=== PATIENT | female | born 1940 | race Caucasian/White ===

== ENCOUNTER 2016-06-05 11:27 | Outpatient (CLI) | payer MEDICARE | END 2016-06-05 11:28 | disposition home or self-care (01) | DX: I25.10 Atherosclerotic heart disease of native coronary artery without angina pectoris (principal); I51.7 Cardiomegaly; I10 Essential (primary) hypertension; Z95.1 Presence of aortocoronary bypass graft ==

== ENCOUNTER 2016-07-12 14:17 | Outpatient (CLI) | payer MEDICARE | END 2016-07-12 14:18 | disposition home or self-care (01) | DX: I25.10 Atherosclerotic heart disease of native coronary artery without angina pectoris (principal) ==

== ENCOUNTER 2016-07-13 14:43 | Outpatient (CLI) | payer MEDICARE | END 2016-07-13 14:44 | disposition home or self-care (01) | DX: I10 Essential (primary) hypertension (principal); E74.39 Other disorders of intestinal carbohydrate absorption; D75.1 Secondary polycythemia ==

== ENCOUNTER 2016-11-16 12:16 | Outpatient (CLI) | payer MEDICARE ==
--- NOTE | 2016-11-16 15:54 | XRAY Report ---
RIGHT HIP AND PELVIS: 11/16/2016 CLINICAL INDICATION: Right hip pain. COMPARISON: 07/26/2010 FINDINGS: Frontal view of the hips and pelvis and frogleg lateral view of the right hip again demons trate severe right hip osteoarthritis. There is no evidence of interval fracture. Surgical clips ar e noted in the right groin soft tissues. IMPRESSION: SEVERE RIGHT HIP OSTEOARTHRITIS. JOB #: [id number] EXT JOB #:[id number]
--- NOTE | 2016-11-16 15:59 | XRAY Report ---
THREE VIEW RIGHT KNEE: 11/16/2016 CLINICAL INDICATION: Pain. FINDINGS: AP, lateral, and sunrise views of the right knee demonstrate mild osteoarthritis. There is no evidence of acute fracture or dislocation. No effusion is present. IMPRESSION: MILD OSTEOARTHRITIS. JOB #: [id number] EXT JOB #:[id number]
== END 2016-11-16 12:17 | disposition home or self-care (01) ==
LOC: DI.S 12:16
PROVIDERS: ATTEND Nurse Practitioner Family
DX: M16.11 Unilateral primary osteoarthritis, right hip (principal); M17.11 Unilateral primary osteoarthritis, right knee

== ENCOUNTER 2017-03-05 13:30 | Outpatient (CLI) | payer MEDICARE | END 2017-03-05 13:31 | LOC: LAB.R 13:30 | PROVIDERS: ATTEND Nurse Practitioner Family | DX: Z79.891 Long term (current) use of opiate analgesic (principal) | CPT/HCPCS: 80307 ==

== ENCOUNTER 2018-06-19 10:30 | Emergency (ER) | payer MEDICARE ==
[2018-06-19] MEDS ORDERED: HYDROcod/ACETAM 5/325 MG TABLET PO STA (12:34)
[2018-06-19] MEDS ORDERED: KETOROLAC 15 MG/ML VIAL IVP STA (12:35)
--- NOTE | 2018-06-19 12:37 | ED Physician Documentation ---
History of Present Illness - Stated complaint Stated Complaint: RIGHT SIDE BACK PAIN - Chief complaint Chief Complaint: General - History obtained from History obtained from: Patient, Family - History of Present Illness Timing: Chronic Pain level max: 8 Pain level now: 8 - Additonal information Additional information: 78-year-old female has not seen a doctor in almost 2 years. States that her right hip has been increasing in pain. Is not relieved with [id number] medications anymore. She has a hard time getting out of bed. Uses a walker when she does get out of bed. No fevers. No vomiting. No abdominal pain. No recent falls. Family is having a difficult time caring for her at home. Patient has a history of coronary artery disease, 6 cardiac stents and a two- vessel bypass. Better with rest and worse with movement Review of Systems Constitutional: denies: Fever, Chills Respiratory: denies: Cough GI: denies: Vomiting, Diarrhea Skin: denies: Rash Musculoskeletal: reports: Back pain (Chronic and unchanged). denies: Neck pain Neurologic: denies: Headache PD PAST MEDICAL HISTORY - Past Medical History Past Medical History: Yes Cardiovascular: Valve disorder Musculoskeletal: Osteoarthritis - Present Medications Home Medications: Ambulatory Orders Medication Instructions Recorded Confirmed Cephalexin [Keflex] 500 mg PO Q6H #28 capsule 06/19/18 Hydrocodone/Acetaminophen 1 - 2 each PO Q6H PRN #14 tablet 06/19/18 [Hydrocodon-Acetaminophen 5-325] Meloxicam [Mobic] 15 mg PO DAILY PRN #20 tablet 06/19/18 - Allergies Allergies/Adverse Reactions: Allergies Allergy/AdvReac Type Severity Reaction Status Date / Time No Known Drug Allergies Allergy Verified 06/19/18 10:46 - Social History Does the pt smoke?: No Smoking Status: Never smoker Does the pt drink ETOH?: No Does the pt have substance abuse?: No - Immunizations Immunizations are current?: No - POLST Patient has POLST: No PD ED PE NORMAL - Vitals Vital signs reviewed: Yes - General General: Alert and oriented X 3, No acute distress, Well developed/nourished - HEENT HEENT: PERRL, Moist mucous membranes - Neck Neck: Supple, no meningeal sign - Cardiac Cardiac: RRR, Strong equal pulses - Respiratory Respiratory: No respiratory distress, Clear bilaterally - Abdomen Abdomen: Soft, Non tender, Non distended - Back Back: No spinal TTP - Derm Derm: Warm and dry, Other (Actinic keratoses on the leg) - Extremities Extremities: No deformity, No tenderness to palpate, No edema, Other (Pain with range of motion of the right hip. Otherwise normal examination of the extremities.) - Neuro Neuro: Alert and oriented X 3 - Psych Psych: Normal mood, Normal affect Results - Vitals Vitals: Vital Signs - 24 hr 06/19/18 06/19/18 10:41 12:54 Temperature 36.0 C L Heart Rate 80 73 Respiratory 14 18 Rate Blood Pressure 148/93 H 161/96 H O2 Saturation 96 96 Oxygen O2 Source Room air - Labs Labs: Laboratory Tests 06/19/18 06/19/18 06/19/18 12:28 12:28 12:28 WBC 9.8 RBC 5.27 Hgb 15.9 Hct 48.1 H MCV 91.3 MCH 30.1 MCHC 33.0 RDW 15.1 H Plt Count 267 MPV 7.5 L Neut # (Auto) 6.5 Lymph # (Auto) 2.2 [place] # (Auto) 1.0 Eos # (Auto) 0.1 Baso # (Auto) 0.1 Absolute Nucleated RBC 0.00 Nucleated RBC % 0.0 Sodium 132 L Potassium 2.9 L Chloride 97 L Carbon Dioxide 26 Anion Gap 9.0 BUN 14 Creatinine 1.2 H Estimated GFR (MDRD) 43 L Glucose 120 H Lactic Acid 2.1 Calcium 8.4 L Total Bilirubin 0.8 AST 19 ALT 15 Alkaline Phosphatase 88 Total Protein 7.3 Albumin 4.0 Globulin 3.3 Albumin/Globulin Ratio 1.2 Lipase 22 Urine Color Urine Clarity Urine pH Ur Specific [place] Urine Protein Urine Glucose (UA) Urine Ketones Urine Occult Blood Urine Nitrite Urine Bilirubin Urine Urobilinogen Ur Leukocyte Esterase Urine RBC Urine WBC Ur Epithelial Cells Ur Squamous Epith Cells Amorphous Sediment Urine Bacteria Ur Microscopic Review Urine Culture Comments 06/19/18 12:48 WBC RBC Hgb Hct MCV MCH MCHC RDW Plt Count MPV Neut # (Auto) Lymph # (Auto) [place] # (Auto) Eos # (Auto) Baso # (Auto) Absolute Nucleated RBC Nucleated RBC % Sodium Potassium Chloride Carbon Dioxide Anion Gap BUN Creatinine Estimated GFR (MDRD) Glucose Lactic Acid Calcium Total Bilirubin AST ALT Alkaline Phosphatase Total Protein Albumin Globulin Albumin/Globulin Ratio Lipase Urine Color YELLOW Urine Clarity CLEAR Urine pH 7.0 Ur Specific [place] 1.020 Urine Protein 30 H Urine Glucose (UA) NEGATIVE Urine Ketones TRACE Urine Occult Blood NEGATIVE Urine Nitrite NEGATIVE Urine Bilirubin NEGATIVE Urine Urobilinogen 0.2 (NORMAL) Ur Leukocyte Esterase NEGATIVE Urine RBC 0-5 Urine WBC 6-10 H Ur Epithelial Cells RARE Transitional Ur Squamous Epith Cells RARE Squamous Amorphous Sediment Few Urine Bacteria Many H Ur Microscopic Review INDICATED Urine Culture Comments INDICATED - Rads (name of study) Right hip x-ray Radiology: Prelim report reviewed, EMP read contemporaneously, See rad report (Stable asymmetric moderate to severe degenerative arthritis of the right hip. No acute fracture. ) PD MEDICAL DECISION MAKING - ED course Complexity details: reviewed results, re-evaluated patient, considered differential, d/w patient ED course: 78-year-old female presents the emergency department with continued right hip osteoarthritis. Also found to have a UTI. Will treat with antibiotics. Potassium replaced. IV fluids given. Pain well controlled. Ambulating with a walker. We will have her follow-up with her doctor for further care. She is well-appearing, nontoxic. Patient and family counseled regarding signs and symptoms for which I believe and urgent re-evaluation would be necessary. Patient with good understanding of and agreement to plan and is comfortable going home at this time This document was made in part using voice recognition software. While efforts are made to proofread this document, sound alike and grammatical errors may occur. Departure - Departure Disposition: 01 Home, Self Care Clinical Impression: Hypokalemia UTI (urinary tract infection) Qualifiers: Urinary tract infection type: acute cystitis Hematuria presence: without hematu travis Qualified Code(s): N30.00 - Acute cystitis without hematuria Osteoarthritis Qualifiers: Osteoarthritis location: multiple joints Osteoarthritis type: unspecified Qualified Code(s): M15.9 - Polyosteoarthritis, unspecified Condition: Good Instructions: ED Potassium Deficiency, ED Degenerative Joint Disease, ED UTI Cystitis Female Follow-Up: [facility] [Provider Group] [facility] [Provider Group] [facility] [Provider Group] Prescriptions: Cephalexin [Keflex] 500 mg PO Q6H #28 capsule Hydrocodone/Acetaminophen [Hydrocodon-Acetaminophen 5-325] 1 - 2 each PO Q6H PRN #14 tablet PRN Reason: pain Meloxicam [Mobic] 15 mg PO DAILY PRN #20 tablet PRN Reason: pain Comments: Take all antibiotics until gone. Return if you worsen. Follow-up with your doctor for further care. You can use the medications as prescribed to help with your pain. Do not drink alcohol or drive while on narcotic pain medicine. Note that many narcotic pain relievers also contain tylenol/acetaminophen. Please ensure that your total dose of acetaminophen from all sources does not exceed 3 grams (3000mg) per day. You may constipated on this medication, take a stool softener such as "Colace" twice a day while you are on it. Also recommend a [id number] laxative such as senna or MiraLAX any day that you do not have a bowel movement. If you received narcotic pain medication in the emergency department, do not drive or operate machinery for the next 24 hours. Discharge Date/Time: 06/19/18 14:36
[2018-06-19 12:38] LABS: BASOPHILS # (AUTO) 0.1 10^3/uL (0.0-0.1); BASOPHILS % (AUTO) 1.1 %; EOSINOPHILS # (AUTO) 0.1 10^3/uL (0.0-0.7); EOSINOPHILS % (AUTO) 0.7 %; HGB - HEMOGLOBIN 15.9 g/dL (12.0-16.0); LYMPHOCYTES # (AUTO) 2.2 10^3/uL (1.5-3.5); LYMPHOCYTES % (AUTO) 22.5 %; MEAN CORPUSCULAR HEMOGLOBIN 30.1 pg (27.0-31.0); MEAN CORPUSCULAR VOLUME 91.3 fL (81.0-99.0); MEAN PLATELET VOLUME 7.5 fL (7.9-10.8); MONOCYTES % (AUTO) 9.9 %; NEUTROPHILS # (AUTO) 6.5 10^3/uL (1.5-6.6); NEUTROPHILS % (AUTO) 65.8 %; PLT - PLATELET COUNT 267 10^3/uL (130-450); RED BLOOD COUNT 5.27 10^6/uL (4.20-5.40); RED CELL DISTRIBUTION WIDTH 15.1 % (12.0-15.0); WHITE BLOOD COUNT 9.8 x10^3/uL (4.8-10.8)
[2018-06-19 12:49] LABS: ALBUMIN/GLOBULIN RATIO 1.2 (1.0-2.2); BILIRUBIN,TOTAL 0.8 mg/dL (0.2-1.0); CALCIUM 8.4 mg/dL (8.5-10.3); CREATININE 1.2 mg/dL (0.4-1.0); TOTAL PROTEIN 7.3 g/dL (6.7-8.2)
[2018-06-19 12:55] VITALS: BP 161/96
[2018-06-19 12:58] LABS: BILIRUBIN,URINE NEGATIVE (NEGATIVE); GLUCOSE, URINE (UA) NEGATIVE (NEGATIVE); KETONES,URINE (UA) TRACE mg/dL (NEGATIVE); LEUKOCYTE ESTERASE, URINE NEGATIVE (NEGATIVE); NITRITE,URINE NEGATIVE (NEGATIVE); OCCULT BLOOD,URINE NEGATIVE (NEGATIVE); PROTEIN,URINE 30 mg/dL (NEGATIVE); UROBILINOGEN,URINE 0.2 (NORMAL) E.U./dL (NORMAL)
[2018-06-19 13:02] LABS: CLARITY,URINE CLEAR (CLEAR)
[2018-06-19 13:04] LABS: BACTERIA,URINE Many /HPF (None Seen); EPITHELIAL CELLS,UR RARE Transitional /HPF (<= Few); RBC,URINE 0-5 /HPF (0-5); SQUAMOUS EPITHELIAL CELL,UR RARE Squamous (<= Few)
[2018-06-19 13:05] LABS: AMORPHOUS SEDIMENT,UR Few /LPF
[2018-06-19] MEDS ORDERED: SODIUM CHLORIDE 0.9% 1,000 ML IV ONE (13:11)
[2018-06-19] MEDS ORDERED: cefTRIAXone 1 GM VIAL IVP STA (13:13)
[2018-06-19] MEDS ORDERED: POTASSIUM BICARB 25 MEQ TABLET PO STA (13:40)
--- NOTE | 2018-06-19 13:43 | XRAY Report ---
Reason: R hip pain increasing over the past week Procedure Date: 06/19/2018 Accession Number: [id number] / [id number] Procedure: XR - Hip w/Pelvis 2-3V RT CPT Code: FULL RESULT: EXAM: RIGHT HIP RADIOGRAPHY EXAM DATE: 06/19/2018 01:24 PM. CLINICAL HISTORY: Right hip pain increasing over the past week. COMPARISON: XR HIP UNILAT MIN 2 VIEW 07/26/2010 2:25 PM. TECHNIQUE: 2 views. FINDINGS: Bones: No acute fracture or bone lesion appreciated. Joints: Stable appearance of moderate to severe asymmetric degenerative arthritis of the right hip with marked narrowing of the weightbearing surface and subchondral sclerosis. Moderate marginal osteophyte. Soft Tissues: Normal. No soft tissue swelling. IMPRESSION: Stable asymmetric moderate to severe degenerative arthritis of the right hip. No acute fracture. RADIA
== END 2018-06-19 14:36 | disposition home or self-care (01) ==
LOC: ED 10:30
DX: E87.6 Hypokalemia (principal); N30.00 Acute cystitis without hematuria; M15.9 Polyosteoarthritis, unspecified; I25.10 Atherosclerotic heart disease of native coronary artery without angina pectoris; Z95.1 Presence of aortocoronary bypass graft; Z95.5 Presence of coronary angioplasty implant and graft
CPT/HCPCS: 36415; 73502; 80053; 81001; 83605; 83690; 85025; 87086; 87181; 96374; 96375; 99283; A9270; 81003; 87077

== ENCOUNTER 2018-09-22 16:32 | Outpatient (CLI) | payer MEDICARE | END 2018-09-22 16:33 | disposition critical access hospital (66) | LOC: EMS 16:32 | PROVIDERS: ATTEND Surgery | DX: M25.552 Pain in left hip (principal); M25.551 Pain in right hip; R42 Dizziness and giddiness; R11.0 Nausea; W18.39XA Other fall on same level, initial encounter; Y92.009 Unspecified place in unspecified non-institutional (private) residence as the place of occurrence of the external cause | CPT/HCPCS: A0425; A0427 ==

== ENCOUNTER 2018-09-22 16:56 | Inpatient (IN) | payer MEDICARE ==
--- NOTE | 2018-09-22 17:32 | ED Physician Documentation ---
PD HPI Fall - Stated complaint Stated Complaint: GLF - Chief complaint Chief Complaint: Trauma Ext - History obtained from History obtained from: Patient - History of Present Illness Mechanism of injury: Slipped Fall distance: Standing position Where injury occurred: Home Timing - onset: Today Injury(ies) location: Left Lower Extremity (hip and gluteal area). No: Head, Neck, Chest, Abdomen Quality of pain: Pain, Aching, Dull Associated symptoms: No: LOC, AMS, Weakness, Paresthesias Symptoms improve with: Rest Worsens with: Movement Contributing factors: No: Anticoagulated, Intoxicated Similar symptoms before: Has not had sx before Recently seen: Clinic (seen Dr. Joel for right hip bursitis recently) Review of Systems Constitutional: denies: Fever, Chills, Myalgias Nose: denies: Rhinorrhea / runny nose, Congestion Throat: denies: Sore throat Cardiac: denies: Chest pain / pressure Respiratory: denies: Cough GI: denies: Abdominal Pain, Nausea, Vomiting, Diarrhea : denies: Hematuria Skin: denies: Abrasion (s), Laceration (s) Neurologic: denies: Focal weakness, Numbness, Altered mental status, Headache, Head injury Endocrine: reports: Easy bruising / bleeding. 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 HEENT: None Psych: None Musculoskeletal: Osteoarthritis Derm: None - Past Surgical History Past Surgical History: No Cardiovascular: Other - Allergies Allergies/Adverse Reactions: Allergies Allergy/AdvReac Type Severity Reaction Status Date / Time cephalexin [From Keflex] Allergy Hives Verified 09/22/18 17:11 - Social History Does the pt smoke?: No Smoking Status: Never smoker Does the pt drink ETOH?: No Does the pt have substance abuse?: No - Immunizations Immunizations are current?: No - POLST Patient has POLST: No PD ED PE NORMAL - Vitals Vital signs reviewed: Yes - General General: Alert and oriented X 3, No acute distress, Well developed/nourished - HEENT HEENT: Atraumatic - Neck Neck: Supple, no meningeal sign, No adenopathy - Cardiac Cardiac: RRR, No murmur - Respiratory Respiratory: Clear bilaterally, Other (no chestwall tenderness) - Abdomen Abdomen: Soft, Non tender - Back Back: No CVA TTP, No spinal TTP - Derm Derm: Normal color, Warm and dry - Extremities Extremities: Other (left lateral hip and gluteal area with soft tissue tenderness. Some pain with ROM of the left hip. No pain with impaction to the hip joint. ) - Neuro Neuro: Alert and oriented X 3, No motor deficit, No sensory deficit Results - Vitals Vitals: Vital Signs - 24 hr 09/22/18 17:03 Temperature 36.6 C Heart Rate 71 Respiratory 16 Rate Blood Pressure 210/91 H O2 Saturation 96 Oxygen O2 Source Room air - Labs Labs: Laboratory Tests 09/22/18 09/22/18 09/22/18 18:43 18:43 18:43 WBC 10.8 RBC 5.09 Hgb 15.2 Hct 46.7 MCV 91.7 MCH 29.9 MCHC 32.6 RDW 15.1 H Plt Count 238 MPV 7.5 L Neut # (Auto) 7.8 H Lymph # (Auto) 1.9 [place] # (Auto) 1.0 Eos # (Auto) 0.1 Baso # (Auto) 0.1 Absolute Nucleated RBC 0.00 Nucleated RBC % 0.0 PT 12.1 INR 1.1 APTT 28.3 Sodium 139 Potassium 3.1 L Chloride 104 Carbon Dioxide 24 Anion Gap 11.0 BUN 16 Creatinine 1.1 H Estimated GFR (MDRD) 48 L Glucose 110 H Calcium 8.5 Magnesium Total Bilirubin 0.9 AST 14 ALT 13 Alkaline Phosphatase 85 Total Protein 6.6 L Albumin 3.6 Globulin 3.0 Albumin/Globulin Ratio 1.2 Lipase 17 L 09/22/18 18:43 WBC RBC Hgb Hct MCV MCH MCHC RDW Plt Count MPV Neut # (Auto) Lymph # (Auto) [place] # (Auto) Eos # (Auto) Baso # (Auto) Absolute Nucleated RBC Nucleated RBC % PT INR APTT Sodium Potassium Chloride Carbon Dioxide Anion Gap BUN Creatinine Estimated GFR (MDRD) Glucose Calcium Magnesium 2.4 Total Bilirubin AST ALT Alkaline Phosphatase Total Protein Albumin Globulin Albumin/Globulin Ratio Lipase - Rads (name of study) CT pelvis Radiology: Prelim report reviewed (nondisplaced left femoral subcapital fracture. ), EMP read contemporaneously PD MEDICAL DECISION MAKING - ED course Complexity details: reviewed results, considered differential (not sure if hip itself or if pelvic/ramus fracture, based on exam, so got CT pelvis as initial imaging. ), d/w patient, d/w organizational development consultant (Dr. Joel and Dr. Brush.) Departure - Departure Disposition: 66 [facility] DC/Xfer Clinical Impression: Accidental fall Qualifiers: Encounter type: initial encounter Qualified Code(s): W19.XXXA - Unspecified fall, initial encounter Subcapital fracture of left femur Qualifiers: Encounter type: initial encounter Fracture type: closed Qualified Code(s): S72.012A - Unspecified intracapsular fracture of left femur, initial encounter for closed fracture Condition: Stable Record reviewed to determine appropriate education?: Yes Discharge Date/Time: 09/22/18 20:21
[2018-09-22] MEDS ORDERED: KETOROLAC 15 MG/ML VIAL IVP STA (17:46)
--- NOTE | 2018-09-22 18:32 | CT Report ---
Reason: fall with lateral hip/pelvic pain with weight bear Procedure Date: 09/22/2018 Accession Number: [id number] / [id number] Procedure: CT - PELVIS WO CPT Code: FULL RESULT: EXAM: CT BONY PELVIS WITHOUT CONTRAST EXAM DATE: 09/22/2018 06:03 PM. CLINICAL HISTORY: Fall with lateral hip/pelvic pain with weight bear. COMPARISON: HIP W/PELVIS 2-3V RT 06/19/2018 1:00 PM. TECHNIQUE: Thin-section axial images were acquired of the pelvis without contrast. Post-processing: Coronal and sagittal reformats. Other: None. In accordance with CT protocol optimization, one or more of the following dose reduction techniques were utilized for this exam: automated exposure control, adjustment of mA and/or KV based on patient size, or use of iterative reconstructive technique. FINDINGS: Bones: Severe right hip osteoarthritis. Negative for acute fracture. Right medial femoral neck periosteal new bone. Nondisplaced left subcapital femoral neck fracture. Focus of avascular necrosis 2 cm superior right femoral head. Sacroiliac Joints: No widening, erosions, or sclerosis. Symphysis Pubis: Unremarkable. Right Hip: Severe osteoarthritis right hip with hypertrophic spurring, bony remodeling, sclerosis and a complete loss of the superior right hip joint space. Kellgren Gwyn grade 4. Left Hip: The joint space is preserved. No calcified loose bodies. Musculature: Normal. No fatty atrophy. Pelvic Cavity: The visualized bowel, bladder, and reproductive organs are unremarkable on this noncontrast exam. Other: No lymphadenopathy. No free air or free fluid. The other visualized soft tissues are unremarkable. IMPRESSION: 1. Nondisplaced left subcapital femoral neck fracture. 2. Severe osteoarthritis right hip. Kellgren Gwyn grade 4. 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 RADIA
[2018-09-22 18:49] LABS: BASOPHILS # (AUTO) 0.1 10^3/uL (0.0-0.1); BASOPHILS % (AUTO) 0.9 %; EOSINOPHILS # (AUTO) 0.1 10^3/uL (0.0-0.7); EOSINOPHILS % (AUTO) 0.8 %; HGB - HEMOGLOBIN 15.2 g/dL (12.0-16.0); LYMPHOCYTES # (AUTO) 1.9 10^3/uL (1.5-3.5); LYMPHOCYTES % (AUTO) 17.5 %; MEAN CORPUSCULAR HEMOGLOBIN 29.9 pg (27.0-31.0); MEAN CORPUSCULAR HGB CONC 32.6 g/dL (32.0-36.0); MEAN CORPUSCULAR VOLUME 91.7 fL (81.0-99.0); MEAN PLATELET VOLUME 7.5 fL (7.9-10.8); MONOCYTES % (AUTO) 8.9 %; NEUTROPHILS # (AUTO) 7.8 10^3/uL (1.5-6.6); NEUTROPHILS % (AUTO) 71.9 %; PLT - PLATELET COUNT 238 10^3/uL (130-450); RED BLOOD COUNT 5.09 10^6/uL (4.20-5.40); RED CELL DISTRIBUTION WIDTH 15.1 % (12.0-15.0); WHITE BLOOD COUNT 10.8 x10^3/uL (4.8-10.8)
[2018-09-22 19:01] LABS: ALBUMIN 3.6 g/dL (3.2-5.5); ALBUMIN/GLOBULIN RATIO 1.2 (1.0-2.2); BILIRUBIN,TOTAL 0.9 mg/dL (0.2-1.0); CALCIUM 8.5 mg/dL (8.5-10.3); CREATININE 1.1 mg/dL (0.4-1.0); TOTAL PROTEIN 6.6 g/dL (6.7-8.2)
[2018-09-22 19:05] LABS: INR 1.1 (0.8-1.2); PT - PROTHROMBIN TIME 12.1 secs (9.9-12.6)
[2018-09-22 19:12] LABS: PARTIAL THROMBOPLASTIN TIME 28.3 secs (24.9-33.3)
--- NOTE | 2018-09-22 19:13 | CONSULTATION NOTE ---
Referring Provider Name of Referring Provider:: Surinder Jackson MD Consult Date: 09/22/18 Chief Complaint - Chief Complaint Chief Complaint: Asked to evaluate for left subcapital femoral neck fracture History of Present Illness - Admitted From Admitted From:: Home - History Obtained From History obtained from: Patient, Dr. Jackson, medical record - History of Present Illness HPI Comment/Other: Ashley is a 78-year-old female who reportedly sustained a mechanical fall. While she did have baseline right hip pain and is being seen for that previously she now had left sided pain. She points to the left inguinal crease region as the location of the her symptoms. She was admitted to the emergency department for left subcapital femoral neck fracture and orthopedic consultation was sought. Patient lives with her who is reportedly disabled she does use assistive device and is very minimally active in general. Patient has multiple medical history. Please see electronic medical record for further details. 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 Well-developed no acute distress cooperative with exam. Patient's left lower extremity has palpable dorsalis pedis she is able to initiate flexion extension of toes and ankle. Ligh t touch sensation left lower extremity grossly intact. Thigh calf soft nontender. She guards minimal left hip logrolling which is done only gently. Otherwise she is not asked to range the hip. She has no focal tenderness about the hip girdle skin overlying the left hip and thigh is intact. Conclusion/Plan - Diagnosis Diagnosis: Left femoral neck fracture. - Plan Plan: Left femoral neck fracture. Pending medical risk stratification and optimization, will plan to perform left hip mini open pinning. Per Hospitalist, patient's cardiac work-up suggests no additional medical intervention to optimize patient nor his additional intervention expected to decrease patient's overall risk. As such recommend proceeding with left hip mini open pinning. The potential for left hip hemiarthroplasty is also discussed. Discussed the injury with the patient jeremias a diagram for her talked about r elevant literature and natural history and the potential short and long-term problems with this injury especially given her other multiple medical history and her contralateral right hip problems. Talked about operative risks including but not limited to bleeding infection wound complications nerve or blood vessel injury numbness tingling weakness pain stiffness decreased range of motion decreased function worsening of her condition failure to "cure" patient's problem worsening of her condition anyway iatrogenic injury bleeding blood loss blood clot blood clot embolus positioning complications anesthetic complications including but not limited to major cardiovascular neurovascular comp occasions even . Patient verbalized understand above verbalized wish to proceed with operative treatment informed consent was given. Patient given preoperative postoperative instructions and expectations expected rehabilitation course reviewed perioperative medication plan reviewed she denies any counterindication medication plan will have surgery planned as soon as possible now that medical risk stratification and optimization is performed. - Lab Results Fish Bones: 09/23/18 05:38 09/23/18 05:38 - Diagnostic Imaging Results Diagnostic Imaging Results Comments: CT scan left hip yesterday 09/22/2018 reveals non-/minimally displaced subcapital femoral neck fracture. Other incidental findings noted in report included in EMR.
[2018-09-22] MEDS ORDERED: MORPHINE 10 MG/ML VIAL IVP STA (19:25)
[2018-09-22 20:15] LABS: BILIRUBIN,URINE NEGATIVE (NEGATIVE); GLUCOSE, URINE (UA) NEGATIVE (NEGATIVE); KETONES,URINE (UA) NEGATIVE (NEGATIVE); LEUKOCYTE ESTERASE, URINE NEGATIVE (NEGATIVE); NITRITE,URINE POSITIVE (NEGATIVE); OCCULT BLOOD,URINE SMALL (NEGATIVE); PH,URINE 6.5 PH (5.0-7.5); PROTEIN,URINE NEGATIVE (NEGATIVE); UROBILINOGEN,URINE 0.2 (NORMAL) E.U./dL (NORMAL)
[2018-09-22 20:17] LABS: CLARITY,URINE CLEAR (CLEAR)
[2018-09-22 20:21] LABS: BACTERIA,URINE Few /HPF (None Seen); RBC,URINE 0-5 /HPF (0-5); SQUAMOUS EPITHELIAL CELL,UR FEW Squamous (<= Few)
--- NOTE | 2018-09-22 20:30 | HISTORY & PHYSICAL EXAMINATION ---
Chief Complaint - Chief Complaint Chief Complaint: left hip pain s/p fall History of Present Illness - Admitted From Admitted From:: [facility] ED - History Obtained From Records Reviewed: yes History obtained from: patient - History of Present Illness HPI Comment/Other: Patient seen on 09/22/18 at 20:45pm Patient is a 78 y/o female with a significant cardiac Hx of CAD s/p triple vessel CABG, PCI w/ 6 stents and a current smoker who presented to the ED today with worsening left hip pain. She fell yesterday in the early afternoon. She was trying to reach for something on a bookshelf when she got dizzy, lost her balance and fell on her left side. It was witnessed by her grand-daughter. She did not hit her head. She was unable to get up. He son hepled her up and into bed. Today the pain was worse so she came to the ED. She denies chest pain, LEE, abdominal pain, fever or chills. She is nauseous but no vomiting. Work up in the ED included a CT of the hips which was indicative of a fracture. Dr Joel (orthopedics) was consulted by the ED. The patient has been seeing Dr Joel out patient for right hip pain. An MRI has not been and option for her work up because of uncertainty about the nature of her aneurysm clip. She is being admitted for further management. History - Past Medical History Cardiovascular: reports: Hypertension, Coronary artery disease, Valve disorder Respiratory: reports: None Neuro: reports: Other (Hx of brain aneurysm) Endocrine/Autoimmune: reports: None GI: reports: None FRAMING MECHANIC: reports: None HEENT: reports: None Psych: reports: None Musculoskeletal: reports: Osteoarthritis Derm: reports: None MRSA Hx?: No - Past Surgical History General: reports: Cholecystectomy Cardiovascular: reports: CABG, Coronary stent, Other Neuro: reports: Other (clips to aneurysm) - Family & Social History Family History: Father: Cancer (father: glioblastoma at age 85), Other family: (daughter from an NH at 51, paternal grandmother: from and NH at age 67) Living arrangement: At home Living Situation: With family Social History Notes: Patient smokes about 1/2 ppd. Has been smoking for about 64 years. Denies alcohol or illicit drug use. - POLST Patient has POLST: No POLST Status: Full Code Meds/Allgy - Allergies Allergies/Adverse Reactions: Allergies Allergy/AdvReac Type Severity Reaction Status Date / Time cephalexin [From Keflex] Allergy Hives Verified 09/22/18 17:11 Review of Systems - Constitutional Constitutional: denies: Fever, Chills, Malaise, Weakness - Eyes Eyes: denies: Blurred vision, Vision loss, Dipolpia - Ears, Nose & Throat Ears, Nose & Throat: denies: Vertigo, Nosebleeds, Sore throat - Cardiovascular Cariovascular: reports: Lightheadedness, Exertional dyspnea, Decr. exercise tolerance. denies: Irregular heart rate, Palpitations, Chest pain, Edema, Syncope - Respiratory Respiratory: denies: Cough, Sputum production, Wheezing - Gastrointestinal Gastrointestinal: denies: Abdominal pain, Abdominal distention, Constipation, Diarrhea, Black stools, Nausea, Vomiting - Genitourinary Genitourinary: denies: Dysuria, Frequency, Urgency, Hematuria - Musculoskeletal Musculoskeletal: reports: Joint pain (left hip pain) - Integumentary Integumentary: denies: Rash, Pruritis, Lesions, Dryness, Lumps - Neurological Neurological: reports: Dizziness. denies: General weakness, Focal weakness, Headache - Psychiatric Psychiatric: denies: Depression, Anxiety - Endocrine Endocrine: denies: Polyuria, Polydypsia - Hematologic/Lymphatic Hematologic/Lymphatic: denies: Anemia, Bruising, Petechiae Prior Level of Functionality: Patient is mostly bed bound. Gets short of breath if she was to try ambulating 1 block. She uses a walker. Reports frequent dizzy episodes. Exam - Vital Signs Vital Signs: Vital Signs x48h Temp Pulse Resp BP Pulse Ox 09/22/18 19:21 71 16 238/194 H 97 09/22/18 19:20 71 14 241/120 H 93 09/22/18 17:03 36.6 C 71 16 210/91 H 96 - Physical Exam General Appearance: positive: Alert, Moderate distress Eyes Bilateral: positive: Normal inspection, PERRL, EOMI ENT: positive: ENT inspection nml, No signs of dehydration Neck: positive: Nml inspection, No JVD, Trachea midline Respiratory: positive: Chest non-tender, No respiratory distress, Breath sounds nml. negative: Wheezes, Rales, Rhonchi Cardiovascular: positive: Regular rate & rhythm, No murmur, No gallop Abdomen: positive: Non-tender, No organomegaly, Nml bowel sounds, No distention. negative: Guarding, Rebound Back: positive: Nml inspection Skin: positive: Color nml, No rash, Warm, Dry. negative: Cyanosis, Diaphoresis Extremities: positive: No pedal edema. negative: Full ROM Neurologic/Psychiatric: positive: Oriented x3, CN's nml (2-12), Mood/affect nml Conclusion/Plan - Problem List (1) Subcapital fracture of left femur Conclusion/Plan: NPO at midnight. IV hydration. Pain management with dilaudid or norco Orthopedic (Dr Joel) was consulted In light of patient's significant cardiac history of CAD s/p PCI with stents and CABG, Ongoing dizziness, Current smoking history and significant physical decondition (mostly bed-bound). Will do a 2D echo for pre-op eval Qualifiers: Encounter type: initial encounter Fracture type: closed Qualified Code(s): S72.012A - Unspecified intracapsular fracture of left femur, initial encounter for closed fracture (2) Hypertensive urgency Conclusion/Plan: Highest reading was SBP of 238 Could be confounded by pain. Patient is noncompliant with medication. She is supposed to take amlodipine but has not done so in a long while. Labetalol ordered prn for SBP> 180. Will manage pain (3) CAD (coronary artery disease) Conclusion/Plan: Not on any medications - Lab Results Fish Bones: 09/23/18 05:38 09/23/18 05:38 Core Measures - Anticipated LOS I expect patient to be DC'd or transferred within 96 hours.: Yes - DVT/VTE - Prophylaxis VTE/DVT Device ordered at admit?: Yes
[2018-09-22] MEDS: FAMOTIDINE 20 MG/2 ML VIAL IVP SCH (20:56)
[2018-09-22] MEDS: HYDROmorphone 0.5 MG/0.5 ML SYRINGE IVP PRN (20:56)
[2018-09-22] MEDS: SODIUM CHLORIDE FLUSH 0.9% 10 ML SYRINGE IVP PRN (20:57)
[2018-09-22] MEDS: D5NS W/20 MEQ KCL 1,000 ML IV SCH (20:57)
--- NOTE | 2018-09-22 21:27 | XRAY Report ---
Reason: pre-op eval Procedure Date: 09/22/2018 Accession Number: [id number] / [id number] Procedure: XR - Chest 1 View X-Ray CPT Code: 45362 FULL RESULT: EXAM: CHEST RADIOGRAPHY EXAM DATE: 09/22/2018 08:21 PM. CLINICAL HISTORY: Pre-op eval. COMPARISON: CHEST 2 VIEW PA/LAT 02/17/2016 11:05 AM. TECHNIQUE: 1 view. FINDINGS: Lungs/Pleura: Low lung volumes with mild crowding. No focal consolidation or large effusions. No pneumothorax. Mediastinum: Cardiac silhouette size appears stable. Stable prior sternotomy changes. Atherosclerotic vascular calcifications. Other: Partially rim calcified breast implants overlie portions of the chest. IMPRESSION: Low lung volumes with mild crowding. No focal consolidation or large effusions. RADIA
[2018-09-22] MEDS ORDERED: POTASSIUM CHLORIDE INJ 40 MEQ in SODIUM CHLORIDE 0.9% 480 ML IV ONE (21:47)
[2018-09-22] MEDS ORDERED: POTASSIUM CHLOR 10 MEQ/100 ML 10 MEQ/100 ML BAG IV ONE ×3 (23:04→23:06)
[2018-09-23] MEDS: POTASSIUM CHLOR 10 MEQ/100 ML 10 MEQ/100 ML BAG IV SCH ×4 (00:02→02:54)
[2018-09-23] MEDS: SODIUM CHLORIDE FLUSH 0.9% 10 ML SYRINGE IVP SCH ×3 (00:08→16:14)
[2018-09-23] MEDS: HYDROmorphone 0.5 MG/0.5 ML SYRINGE IVP PRN ×5 (00:08→11:57)
[2018-09-23] MEDS: LABETALOL 5 MG/1 ML 20 ML MDV IVP PRN ×2 (02:29→13:22)
[2018-09-23 05:59] LABS: BASOPHILS % (AUTO) 0.5 %; EOSINOPHILS # (AUTO) 0.1 10^3/uL (0.0-0.7); EOSINOPHILS % (AUTO) 1.4 %; HGB - HEMOGLOBIN 14.4 g/dL (12.0-16.0); LYMPHOCYTES # (AUTO) 2.1 10^3/uL (1.5-3.5); LYMPHOCYTES % (AUTO) 28.9 %; MEAN CORPUSCULAR HEMOGLOBIN 30.5 pg (27.0-31.0); MEAN CORPUSCULAR HGB CONC 32.9 g/dL (32.0-36.0); MEAN CORPUSCULAR VOLUME 92.7 fL (81.0-99.0); MEAN PLATELET VOLUME 7.4 fL (7.9-10.8); MONOCYTES # (AUTO) 0.7 10^3/uL (0.0-1.0); MONOCYTES % (AUTO) 9.1 %; NEUTROPHILS # (AUTO) 4.4 10^3/uL (1.5-6.6); NEUTROPHILS % (AUTO) 60.1 %; PLT - PLATELET COUNT 212 10^3/uL (130-450); RED BLOOD COUNT 4.73 10^6/uL (4.20-5.40); RED CELL DISTRIBUTION WIDTH 15.4 % (12.0-15.0); WHITE BLOOD COUNT 7.3 x10^3/uL (4.8-10.8)
[2018-09-23 06:12] LABS: CALCIUM 7.9 mg/dL (8.5-10.3); CREATININE 1.1 mg/dL (0.4-1.0)
[2018-09-23] MEDS: D5NS W/20 MEQ KCL 1,000 ML IV SCH ×2 (07:05→18:53)
[2018-09-23] MEDS ORDERED: BUPIVACAINE 0.25%-EPI 1:200000 PF 30 ML VIAL ONE (08:25)
[2018-09-23] MEDS: POLYETHYLENE GLYCOL 3350 17 GM PACKET PO SCH (08:56)
[2018-09-23] MEDS: FAMOTIDINE 20 MG/2 ML VIAL IVP SCH (10:24)
[2018-09-23] MEDS: NITROGLYCERIN 2% PASTE TOP SCH ×2 (10:24→16:14)
--- NOTE | 2018-09-23 12:12 | PROVIDER PROGRESS NOTE ---
Assessment/Plan - Problem List (1) Accidental fall Qualifiers: Encounter type: subsequent encounter Qualified Code(s): W19.XXXD - Unspecified fall, subsequent encounter Assessment/Plan: She gets dizzy often and therefore it is mostly "in her bed all day". She believes that she fell because of this dizziness. There was no syncope. The only area of the head trauma was the hip. After surgery, will order orthostatic vital sign checks. (2) Subcapital fracture of left femur Qualifiers: Encounter type: subsequent encounter Fracture type: closed Assessment/Plan: Patient has no shortness of breath or chest pain symptoms. Her echo was done today, preop and shows normal LV wall motion and LVEF and no pulmonary hypertension. The patient is therefore considered to be a low cardiac risk (1 risk factor is CAD, possible second risk factor is cerebrovascular disease however this was an intracerebral hemorrhage). I discussed this personally with Dr. Louise, the orthopedist. She will therefore go to hip pinning surgery today per the surgeon. Start PT tomorrow. (3) Hypertensive urgency Assessment/Plan: In the ER her blood pressure was 238 systolic. Patient describes that she stopped her amlodipine because "her blood pressure got too low". That it was never restarted for unknown reasons. Currently she is ordered to get only PRN Labetalol for blood pressure control. We will add topical Nitropaste for blood pressure control, since she is n.p.o. before surgery. (4) CAD (coronary artery disease) Assessment/Plan: She is status post CABG many years, does not remember when her last stress test or coronary evaluation was. She denies any cardiopulmonary symptoms but does very little during the day (it is mostly in bed all day). Her EKG is unremarkable except for LVH with strain. Her preop risk is low (1 or 2 risk factors) (5) Non-compliance Assessment/Plan: The patient was on no home meds, despite having HTN and CAD, and was prescribed Amlodipine and should be on lifelong ASA daily. She thinks she takes a daily Excedrin. Daily aspirin will be started postop. - Current Meds Current Meds: Current Medications Generic Name Dose Route Start Last Admin Trade Name Freq PRN Reason Stop Dose Admin Famotidine 20 mg 09/22/18 21:00 09/23/18 10:24 Pepcid IVP 20 mg BID BRADLEY Administration Hydromorphone HCl 0.5 mg 09/22/18 20:01 09/23/18 11:57 Dilaudid Inj Syringe IVP 0.5 mg Q2H PRN Administration PAIN Potassium Chloride/Dextrose/Sod Cl 1,000 mls @ 100 mls/hr 09/22/18 20:00 09/23/18 07:05 IV 100 mls/hr .Q10H BRADLEY Administration Labetalol HCl 10 mg 09/22/18 20:35 09/23/18 02:29 Trandate Inj IVP 10 mg Q6HR PRN Administration PER PHYSICIAN ORDER Nitroglycerin 0.5 inch 09/23/18 09:04 09/23/18 10:24 Nitro-Bid (Pkt) TOP 0.5 inch Q8H BRADLEY Administration Polyethylene Glycol 17 gm 09/23/18 09:00 09/23/18 08:56 Miralax PO Not Given DAILY BRADLEY Sodium Chloride 10 ml 09/22/18 19:01 09/22/18 20:57 Normal Saline Flush 0.9% IVP 10 ml PRN PRN Administration NEEDED PER PROVIDER ORDERS Sodium Chloride 10 ml 09/23/18 01:00 09/23/18 10:24 Normal Saline Flush 0.9% IVP Not Given 0100,0900,1700 BRADLEY - Lab Result Fish Bone Diagrams: 09/23/18 05:38 09/23/18 05:38 - Additional Planning My Orders: My Active Orders 09/23/18 09:04 Nitroglycerin 2% Paste (Pkt) [Nitro-Bid (Pkt)] 0.5 inch TOP Q8H Subjective - Subjective Nursing Reports: Other (She told her RN that she is "crazy when she has to go under general anesthesia" (I passed this on to her orthopedic surgeon).) Objective Vital Signs: Vital Signs - 24 hr 09/22/18 09/22/18 09/22/18 17:03 19:20 19:21 Temperature 36.6 C Heart Rate 71 71 71 Heart Rate [ Brachial] Respiratory 16 14 16 Rate Blood Pressure 210/91 H 241/120 H 238/194 H Blood Pressure [Right Brachial artery] O2 Saturation 96 93 97 09/22/18 09/22/18 09/22/18 20:31 21:06 21:55 Temperature 36.5 C 36.5 C Heart Rate 77 Heart Rate [ 76 Brachial] Respiratory 16 18 Rate Blood Pressure Blood Pressure 191/105 H 148/92 H [Right Brachial artery] O2 Saturation 95 95 09/23/18 09/23/18 09/23/18 00:00 01:00 01:47 Temperature 36.7 C Heart Rate Heart Rate [ 68 Brachial] Respiratory 18 Rate Blood Pressure Blood Pressure 181/94 H 184/95 H 196/106 H [Right Brachial artery] O2 Saturation 95 09/23/18 09/23/18 09/23/18 02:01 02:16 02:29 Temperature Heart Rate Heart Rate [ 70 73 Brachial] Respiratory Rate Blood Pressure Blood Pressure 192/102 H 203/95 H 195/102 H [Right Brachial artery] O2 Saturation 09/23/18 09/23/18 09/23/18 02:34 02:39 02:44 Temperature Heart Rate Heart Rate [ 67 65 68 Brachial] Respiratory Rate Blood Pressure Blood Pressure 160/83 H 164/77 H 162/86 H [Right Brachial artery] O2 Saturation 09/23/18 09/23/18 09/23/18 02:59 03:14 03:29 Temperature Heart Rate Heart Rate [ 66 69 68 Brachial] Respiratory Rate Blood Pressure Blood Pressure 171/70 H 167/78 H 174/77 H [Right Brachial artery] O2 Saturation 09/23/18 09/23/18 09/23/18 05:00 07:35 09:00 Temperature 36.6 C 36.6 C Heart Rate Heart Rate [ 71 73 Brachial] Respiratory 18 19 Rate Blood Pressure Blood Pressure 178/86 H 172/87 H 165/88 H [Right Brachial artery] O2 Saturation 95 18 L Oxygen O2 Source Room air I&O (Last 24 Hrs): Intake and Output Totals x24h 09/21/18 09/22/18 09/23/18 23:59 23:59 23:59 Intake Total 1400 Output Total 200 400 Balance -200 1000 General: Alert, Oriented x3 HEENT: Mucous membr. moist/pink Neck: Supple, No JVD Neuro: Non Focal Cardiovascular: Regular rate, No murmurs Respiratory: No respiratory distress, Breath sounds nml Abdomen: Soft Extremities: No edema - Results Results: Laboratory Results WBC 7.3 x10^3/uL (4.8-10.8) 09/23/18 05:38 RBC 4.73 10^6/uL (4.20-5.40) 09/23/18 05:38 Hgb 14.4 g/dL (12.0-16.0) 09/23/18 05:38 Hct 43.8 % (37.0-47.0) 09/23/18 05:38 MCV 92.7 fL (81.0-99.0) 09/23/18 05:38 MCH 30.5 pg (27.0-31.0) 09/23/18 05:38 MCHC 32.9 g/dL (32.0-36.0) 09/23/18 05:38 RDW 15.4 % (12.0-15.0) H 09/23/18 05:38 Plt Count 212 10^3/uL (130-450) 09/23/18 05:38 MPV 7.4 fL (7.9-10.8) L 09/23/18 05:38 Neut # (Auto) 4.4 10^3/uL (1.5-6.6) 09/23/18 05:38 Lymph # (Auto) 2.1 10^3/uL (1.5-3.5) 09/23/18 05:38 [place] # (Auto) 0.7 10^3/uL (0.0-1.0) 09/23/18 05:38 Eos # (Auto) 0.1 10^3/uL (0.0-0.7) 09/23/18 05:38 Baso # (Auto) 0.0 10^3/uL (0.0-0.1) 09/23/18 05:38 Absolute Nucleated RBC 0.01 x10^3/uL 09/23/18 05:38 Nucleated RBC % 0.1 /100WBC 09/23/18 05:38 PT 12.1 secs (9.9-12.6) 09/22/18 18:43 INR 1.1 (0.8-1.2) 09/22/18 18:43 APTT 28.3 secs (24.9-33.3) 09/22/18 18:43 Sodium 142 mmol/L (135-145) 09/23/18 05:38 Potassium 3.7 mmol/L (3.5-5.0) 09/23/18 05:38 Chloride 111 mmol/L (101-111) 09/23/18 05:38 Carbon Dioxide 23 mmol/L (21-32) 09/23/18 05:38 Anion Gap 8.0 (6-13) 09/23/18 05:38 BUN 16 mg/dL (6-20) 09/23/18 05:38 Creatinine 1.1 mg/dL (0.4-1.0) H 09/23/18 05:38 Estimated GFR (MDRD) 48 (>89) L 09/23/18 05:38 Glucose 115 mg/dL (70-100) H 09/23/18 05:38 Calcium 7.9 mg/dL (8.5-10.3) L 09/23/18 05:38 Magnesium 2.4 mg/dL (1.7-2.8) 09/22/18 18:43 Total Bilirubin 0.9 mg/dL (0.2-1.0) 09/22/18 18:43 AST 14 IU/L (10-42) 09/22/18 18:43 ALT 13 IU/L (10-60) 09/22/18 18:43 Alkaline Phosphatase 85 IU/L (42-121) 09/22/18 18:43 Troponin I < 0.04 ng/mL (<0.49) 09/23/18 09:18 Total Protein 6.6 g/dL (6.7-8.2) L 09/22/18 18:43 Albumin 3.6 g/dL (3.2-5.5) 09/22/18 18:43 Globulin 3.0 g/dL (2.1-4.2) 09/22/18 18:43 Albumin/Globulin Ratio 1.2 (1.0-2.2) 09/22/18 18:43 Lipase 17 U/L (22-51) L 09/22/18 18:43 Urine Color YELLOW 09/22/18 20:08 Urine Clarity CLEAR (CLEAR) 09/22/18 20:08 Urine pH 6.5 PH (5.0-7.5) 09/22/18 20:08 Ur Specific [place] <=1.005 (1.002-1.030) 09/22/18 20:08 Urine Protein NEGATIVE mg/dL (NEGATIVE) 09/22/18 20:08 Urine Glucose (UA) NEGATIVE mg/dL (NEGATIVE) 09/22/18 20:08 Urine Ketones NEGATIVE mg/dL (NEGATIVE) 09/22/18 20:08 Urine Occult Blood SMALL (NEGATIVE) H 09/22/18 20:08 Urine Nitrite POSITIVE (NEGATIVE) H 09/22/18 20:08 Urine Bilirubin NEGATIVE (NEGATIVE) 09/22/18 20:08 Urine Urobilinogen 0.2 (NORMAL) E.U./dL (NORMAL) 09/22/18 20:08 Ur Leukocyte Esterase NEGATIVE (NEGATIVE) 09/22/18 20:08 Urine RBC 0-5 /HPF (0-5) 09/22/18 20:08 Urine WBC 0-3 /HPF (0-5) 09/22/18 20:08 Ur Squamous Epith Cells FEW Squamous (<= Few) 09/22/18 20:08 Urine Bacteria Few /HPF (None Seen) 09/22/18 20:08 Ur Microscopic Review INDICATED 09/22/18 20:08 Urine Culture Comments INDICATED 09/22/18 20:08 ABX Reporting Has patient been on IV antibiotics over the past 48 hours?: No
--- NOTE | 2018-09-23 14:38 | ANESTHESIA ---
Pre-Anesthesia VS, & Labs - Diagnosis Diagnosis Left femoral neck fracture. - Procedure Left hip pinning Vital Signs: Temp Pulse Resp BP Pulse Ox 36.8 C 78 16 169/135 H 93 09/23/18 13:00 09/23/18 13:39 09/23/18 13:00 09/23/18 13:39 09/23/18 13:00 Height 5 ft 8 in Weight (kg) 83 kg Body Mass Index 27.8 - NPO >8 hours - Is Patient ?: No - Lab Results Current Lab Results: Laboratory Tests 09/23/18 09:18: Troponin I < 0.04 09/23/18 05:38: Sodium 142, Potassium 3.7, Chloride 111, Carbon Dioxide 23, Anion Gap 8.0, BUN 16, Creatinine 1.1 H, Estimated GFR (MDRD) 48 L, Glucose 115 H, Calcium 7.9 L 09/23/18 05:38: WBC 7.3, RBC 4.73, Hgb 14.4, Hct 43.8, MCV 92.7, MCH 30.5, MCHC 32.9, RDW 15.4 H, Plt Count 212, MPV 7.4 L, Neut # (Auto) 4.4, Lymph # (Auto) 2. 1, [place] # (Auto) 0.7, Eos # (Auto) 0.1, Baso # (Auto) 0.0, Absolute Nucleated RBC 0.01, Nucleated RBC % 0.1 09/22/18 18:43: Magnesium 2.4 09/22/18 18:43: Sodium 139, Potassium 3.1 L, Chloride 104, Carbon Dioxide 24, Anion Gap 11.0, BUN 16, Creatinine 1.1 H, Estimated GFR (MDRD) 48 L, Glucose 110 H, Calcium 8.5, Total Bilirubin 0.9, AST 14, ALT 13, Alkaline Phosphatase 85, Total Protein 6.6 L, Albumin 3.6, Globulin 3.0, Albumin/Globulin Ratio 1.2, Lipase 17 L 09/22/18 18:43: PT 12.1, INR 1.1, APTT 28.3 09/22/18 18:43: WBC 10.8, RBC 5.09, Hgb 15.2, Hct 46.7, MCV 91.7, MCH 29.9, MCHC 32.6, RDW 15.1 H, Plt Count 238, MPV 7.5 L, Neut # (Auto) 7.8 H, Lymph # (Auto) 1.9, [place] # (Auto) 1.0, Eos # (Auto) 0.1, Baso # (Auto) 0.1, Absolute Nucleated RBC 0.00, Nucleated RBC % 0.0 Lab results reviewed: Yes Fish Bones: 09/23/18 05:38 09/23/18 05:38 Home Medications and Allergies Active Medications Hydrocodone Bitart/Acetaminophen ([place] 5/325) 1 tab PO Q4HR PRN PRN Reason: PAIN Famotidine (Pepcid) 20 mg IVP BID [facility] Last Admin: 09/23/18 10:24 Dose: 20 mg Hydromorphone HCl (Dilaudid (Vial)) 2 mg IVP Q2H PRN PRN Reason: PAIN Potassium Chloride/Dextrose/Sod Cl () 1,000 mls @ 100 mls/hr IV .Q10H [facility] Last Admin: 09/23/18 07:05 Dose: 100 mls/hr Labetalol HCl (Trandate Inj) 10 mg IVP Q6HR PRN PRN Reason: PER PHYSICIAN ORDER Last Admin: 09/23/18 13:22 Dose: 10 mg Nitroglycerin (Nitro-Bid (Pkt)) 0.5 inch TOP Q8H [facility] Last Admin: 09/23/18 10:24 Dose: 0.5 inch Ondansetron HCl (Zofran Inj) 4 mg IVP Q6HR PRN PRN Reason: Nausea / Vomiting Polyethylene Glycol (Miralax) 17 gm PO DAILY [facility] Last Admin: 09/23/18 08:56 Dose: Not Given Sodium Chloride (Normal Saline Flush 0.9%) 10 ml IVP PRN PRN PRN Reason: NEEDED PER PROVIDER ORDERS Last Admin: 09/22/18 20:57 Dose: 10 ml Sodium Chloride (Normal Saline Flush 0.9%) 10 ml IVP 0100,0900,1700 [facility] Last Admin: 09/23/18 10:24 Dose: Not Given Allergies/Adverse Reactions: Allergies Allergy/AdvReac Type Severity Reaction Status Date / Time cephalexin [From Keflex] Allergy Hives Verified 09/22/18 17:11 Anes History & Medical History - Medical History Cardiovascular: reports: Hypertension, Valve disorder Pulmonary: reports: None Gastrointestinal: reports: None Neuro: reports: None Musculoskeletal: reports: Osteoarthritis Endocrine/Autoimmune: reports: None Blood Disorders: reports: None Skin: reports: None Smoking Status: Never smoker - Surgical History General: Cholecystectomy Cardiothoracic: Other Neurologic: Other (clips to aneurysm)
--- NOTE | 2018-09-23 14:54 | ANESTHESIA ---
Pre-Anesthesia VS, & Labs - Diagnosis Diagnosis Left femoral neck fracture. - Procedure Left hip pinning Vital Signs: Temp Pulse Resp BP Pulse Ox 36.8 C 78 16 169/135 H 93 09/23/18 13:00 09/23/18 13:39 09/23/18 13:00 09/23/18 13:39 09/23/18 13:00 Height 5 ft 8 in Weight (kg) 83 kg Body Mass Index 27.8 - NPO >8 hours - Is Patient ?: No, Not Applicable - Lab Results Current Lab Results: Laboratory Tests 09/23/18 09:18: Troponin I < 0.04 09/23/18 05:38: Sodium 142, Potassium 3.7, Chloride 111, Carbon Dioxide 23, Anion Gap 8.0, BUN 16, Creatinine 1.1 H, Estimated GFR (MDRD) 48 L, Glucose 115 H, Calcium 7.9 L 09/23/18 05:38: WBC 7.3, RBC 4.73, Hgb 14.4, Hct 43.8, MCV 92.7, MCH 30.5, MCHC 32.9, RDW 15.4 H, Plt Count 212, MPV 7.4 L, Neut # (Auto) 4.4, Lymph # (Auto) 2.1, [place] # (Auto) 0.7, Eos # (Auto) 0.1, Baso # (Auto) 0.0, Absolute Nucleated RBC 0.01, Nucleated RBC % 0.1 09/22/18 18:43: Magnesium 2.4 09/22/18 18:43: Sodium 139, Potassium 3.1 L, Chloride 104, Carbon Dioxide 24, Anion Gap 11.0, BUN 16, Creatinine 1.1 H, Estimated GFR (MDRD) 48 L, Glucose 110 H, Calcium 8.5, Total Bilirubin 0.9, AST 14, ALT 13, Alkaline Phosphatase 85, Total Protein 6.6 L, Albumin 3.6, Globulin 3.0, Albumin/Globulin Ratio 1.2, Lipase 17 L 09/22/18 18:43: PT 12.1, INR 1.1, APTT 28.3 09/22/18 18:43: WBC 10.8, RBC 5.09, Hgb 15.2, Hct 46.7, MCV 91.7, MCH 29.9, MCHC 32.6, RDW 15.1 H, Plt Count 238, MPV 7.5 L, Neut # (Auto) 7.8 H, Lymph # (Auto) 1.9, [place] # (Auto) 1.0, Eos # (Auto) 0.1, Baso # (Auto) 0.1, Absolute Nucleated RBC 0.00, Nucleated RBC % 0.0 Lab results reviewed: Yes Fish Bones: 09/23/18 05:38 09/23/18 05:38 Home Medications and Allergies Active Medications Hydrocodone Bitart/Acetaminophen ([place] 5/325) 1 tab PO Q4HR PRN PRN Reason: PAIN Famotidine (Pepcid) 20 mg IVP BID [facility] Last Admin: 09/23/18 10:24 Dose: 20 mg Hydromorphone HCl (Dilaudid (Vial)) 2 mg IVP Q2H PRN PRN Reason: PAIN Potassium Chloride/Dextrose/Sod Cl () 1,000 mls @ 100 mls/hr IV .Q10H [facility] Last Admin: 09/23/18 07:05 Dose: 100 mls/hr Labetalol HCl (Trandate Inj) 10 mg IVP Q6HR PRN PRN Reason: PER PHYSICIAN ORDER Last Admin: 09/23/18 13:22 Dose: 10 mg Nitroglycerin (Nitro-Bid (Pkt)) 0.5 inch TOP Q8H [facility] Last Admin: 09/23/18 10:24 Dose: 0.5 inch Ondansetron HCl (Zofran Inj) 4 mg IVP Q6HR PRN PRN Reason: Nausea / Vomiting Polyethylene Glycol (Miralax) 17 gm PO DAILY [facility] Last Admin: 09/23/18 08:56 Dose: Not Given Sodium Chloride (Normal Saline Flush 0.9%) 10 ml IVP PRN PRN PRN Reason: NEEDED PER PROVIDER ORDERS Last Admin: 09/22/18 20:57 Dose: 10 ml Sodium Chloride (Normal Saline Flush 0.9%) 10 ml IVP 0100,0900,1700 [facility] Last Admin: 09/23/18 10:24 Dose: Not Given Allergies/Adverse Reactions: Allergies Allergy/AdvReac Type Severity Reaction Status Date / Time cephalexin [From Keflex] Allergy Hives Verified 09/22/18 17:11 Anes History & Medical History - Anesthetic History Anesthesia Complications: reports: No previous complications Family history of Anesthesia Complications: Denies Family history of Malignant Hyperthermia: Denies - Medical History Cardiovascular: reports: Hypertension, Valve disorder Pulmonary: reports: None Gastrointestinal: reports: None Urinary: reports: None Neuro: reports: None Musculoskeletal: reports: Osteoarthritis Endocrine/Autoimmune: reports: None Blood Disorders: reports: None Skin: reports: None Smoking Status: Current every day smoker - Surgical History General: Cholecystectomy Cardiothoracic: Other Neurologic: Other (clips to aneurysm) Exam General: Alert, Oriented x3, Cooperative Dental: Dentures full Upper Mouth Opening: Greater than 4 Fingerbreadths Neck Mobility: Normal Mallampati classification: II Thyromental Distance: greater than 6 cm Respiratory: Lungs clear Cardiovascular: Regular rate Mental/Cognitive Status: Alert/Oriented X3, Normal for patient Cognitive Status: Within normal limits Plan Anesthesia Type: General Consent for Procedure(s) Verified and Reviewed: Yes Code Status: Attempt Resuscitation ASA classification: 3-Severe systemic disease Is this case an emergency?: Yes
[2018-09-23] MEDS ORDERED: LACTATED RINGERS 1,000 ML IV ONE ×3 (16:09→18:00)
[2018-09-23] MEDS ORDERED: fentaNYL 250 MCG/5 ML VIAL IVP ONE (16:45)
[2018-09-23] MEDS ORDERED: LIDOCAINE-MPF 2% 5 ML VIAL IM ONE (16:45)
[2018-09-23] MEDS ORDERED: MIDAZOLAM 2 MG/2 ML VIAL IVP ONE (16:45)
[2018-09-23] MEDS ORDERED: DEXAMETHASONE 4 MG/ML VIAL IVP ONE (16:45)
[2018-09-23] MEDS ORDERED: ONDANSETRON 4 MG/2 ML VIAL IVP ONE (16:45)
[2018-09-23] MEDS ORDERED: PROPOFOL 200 MG/20 ML VIAL IVP ONE (16:45)
[2018-09-23] MEDS ORDERED: METOPROLOL 5 MG/5 ML VIAL IVP ONE (16:45)
[2018-09-23] MEDS ORDERED: CEFAZOLIN SODIUM IN 0.9 % NACL 2 GM/100 ML BAG IV ONE (16:45)
[2018-09-23] MEDS ORDERED: ONDANSETRON 4 MG/2 ML VIAL IVP PRN (17:56)
[2018-09-23] MEDS ORDERED: ACETAMINOPHEN 1,000 MG/100 ML 100 ML IV ONE (18:06)
[2018-09-23] MEDS: HYDROmorphone 1 MG/ML CARPUJECT ONE ×2 (18:11→18:19)
--- NOTE | 2018-09-23 18:28 | IMMEDIATE POSTOPERATIVE NOTE ---
Immediate Postoperative Note - Procedure Note Procedure Date: 09/23/18 Pre-Op Diagnosis: left sub cap fem neck fracture Procedure: left mini open hip pinning Post-Op Diagnosis: same Primary Surgeon: Edgar Joel Filter Press Tender: oscar Anesthesia Type: General LMA Findings: as above Complications: No complications Estimated Blood Loss (in cc): 25 Plan of Care: abx, dvt mech and chemical. TTWB with assist and assist device. PT/OT/SW. Medical management.
[2018-09-23] MEDS: ceFAZolin 2 GM in SODIUM CHLORIDE 0.9% 100ML 100 ML IV SCH (19:58)
[2018-09-23] MEDS: HYDROmorphone 2 MG/ML VIAL IVP PRN ×2 (20:02→22:59)
[2018-09-23] MEDS: ONDANSETRON 4 MG/2 ML VIAL IVP PRN (20:07)
[2018-09-23] MEDS: HYDROcod/ACETAM 5/325 MG TABLET PO PRN (21:28)
[2018-09-23] MEDS: ACETAMINOPHEN 1,000 MG/100 ML 100 ML IV PRN (22:59)
[2018-09-23] MEDS ORDERED: LABETALOL 5 MG/1 ML 20 ML MDV IVP PRN (23:53)
[2018-09-24] MEDS ORDERED: WATER FOR INJECTION,STERILE 10 ML ONE (01:08)
[2018-09-24] MEDS: ceFAZolin 2 GM in SODIUM CHLORIDE 0.9% 100ML 100 ML IV SCH (01:22)
[2018-09-24] MEDS: NITROGLYCERIN 2% PASTE TOP SCH ×3 (01:48→16:26)
[2018-09-24] MEDS: ONDANSETRON 4 MG/2 ML VIAL IVP PRN (02:30)
[2018-09-24] MEDS: SODIUM CHLORIDE FLUSH 0.9% 10 ML SYRINGE IVP SCH ×6 (03:45→16:27)
[2018-09-24] MEDS: ACETAMINOPHEN 1,000 MG/100 ML 100 ML IV PRN (04:34)
[2018-09-24 05:25] LABS: BASOPHILS % (AUTO) 0.2 %; CALCIUM 8.2 mg/dL (8.5-10.3); HGB - HEMOGLOBIN 13.3 g/dL (12.0-16.0); LYMPHOCYTES % (AUTO) 7.6 %; MEAN CORPUSCULAR HEMOGLOBIN 30.2 pg (27.0-31.0); MEAN CORPUSCULAR HGB CONC 31.7 g/dL (32.0-36.0); MEAN PLATELET VOLUME 9.7 fL (7.9-10.8); MONOCYTES # (AUTO) 0.9 10^3/uL (0.0-1.0); NEUTROPHILS # (AUTO) 10.5 10^3/uL (1.5-6.6); NEUTROPHILS % (AUTO) 84.2 %; PLT - PLATELET COUNT 232 10^3/uL (130-450); RED BLOOD COUNT 4.41 10^6/uL (4.20-5.40); RED CELL DISTRIBUTION WIDTH 14.8 % (12.0-15.0); WHITE BLOOD COUNT 12.5 x10^3/uL (4.8-10.8)
--- NOTE | 2018-09-24 06:54 | OPERATIVE REPORT ---
DATE OF SERVICE: 09/23/2018 Physician: Seb Joel MD SURGEON: Seb Joel MD ANIMAL MAINTENANCE SUPERVISOR: None. ANESTHESIA PROVIDER: Jarrett Ba CRNA. ANESTHESIA: General anesthesia. URINE OUTPUT: 225 mL. FLUIDS: 750 mL lactated Ringer's. ESTIMATED BLOOD LOSS: 25 mL. PREOPERATIVE ANTIBIOTICS: Ancef 2 grams IV weight-based. ORTHOPEDIC IMPLANTS: 3 x 6.5 mm stainless steel Synthes short partially threaded screws. INTRAOPERATIVE COMPLICATIONS: None. PREOPERATIVE DIAGNOSIS: Minimally displaced left subcapital femoral neck fracture. POSTOPERATIVE DIAGNOSIS: Minimally displaced left subcapital femoral neck fracture. PROCEDURE: Left mini-open hip pinning. HISTORY OF PRESENT ILLNESS AND INDICATIONS: Patient is a 78-year-old female who sustained a area mechanic al fall, found to have a minimally displaced subcapital femoral neck fracture, left side. She was in dicated for operative treatment. Please see previous consult discussion. We did review risks, benef its, and alternatives of operative and nonoperative treatments with her and her brother. Discussed p otential operative risks including but not limited to infection, wound problems, nerve or blood vesse l injury, numbness, tingling, weakness, pain, stiffness, decreased range of motion, decreased strengt h, worsening of her condition, failure to "cure" the patient's problem, iatrogenic injury, bleeding, blood loss, blood clot, blood clot embolus, positioning complications, anesthetic complications inclu ding, but not limited to major cardiovascular and neurovascular complications and even . We kiley ked about the fact that she may need conversion to hip replacement in the future, should this fail. The potential for decreased ambulation status and ability and decreased function overall. She verbal ized understanding of the above and verbalized wish to proceed with operative treatment. Informed co nsent was given. INTRAOPERATIVE FINDINGS: The patient was noted to have a minimally impacted subcapital femoral neck fracture, which remained approximately in the same position as noted on the preoperative CT scan. In traoperative fluoroscopic imaging in multiple planes as well as live view shows extraarticular hardwa re and smooth hip range of motion. PROCEDURE: On 09/23/2018, the patient identified in her hospital room. She identifies the left hip as the operative site. This is signed. The patient received preoperative weight-based IV antibiotic s, brought to the operating room and gently placed on the fracture table. Head, neck and extremities are placed in anatomically comfortable and safe positions to avoid peripheral nerve stretch, aleida lavinia and other injury. The contralateral right lower extremity is placed in maximal safe zone of hip abduction, flexion and internal rotation, and placed in a gel-padded leg rest with an SCD boot in pl domi. The patient's operative left leg has a well-padded foot rest and is positioned there without an y reduction maneuver and left in situ. At this point, fluoroscopic image confirms acceptable position of the fracture. At this point, left hip and left thigh are pre-scrubbed with Hibiclens solution and then alcohol, and then ChloraPrep is used for standard prep and drape. At this time, surgical pause identifies the left hip as the operat liv site. At this point, fluoroscopic images used to estimate appropriate starting point. Surgical incision is made at the expected starting point, at which point a guidepin is brought to the lateral aspect of the femur with the goal of targeting the inferior aspect of the femoral neck. The guide pi n is brought into this position through the lateral cortex through the neck up into the head to the s ubchondral bone in the inferior position. This is confirmed on AP and lateral views to be acceptably positioned, at which point a parallel guide is used to place 2 screws superior to this in an inverte d triangle fashion. These guidepins are brought to the subchondral bone and confirmed to be acceptab ly positioned on AP and lateral views. At this point, these are measured. The outer cortex is drill ed and then partially threaded 6.5 mm stainless steel screws are positioned into the subchondral bone with excellent purchase of the bone. One of the two superior screws was between sizes; as such, the shorter size is selected to avoid any penetration of the femoral head. After the screws are noted t o be acceptably positioned, this is confirmed with fluoroscopic image in live mode with nice smooth r merline of motion of the hip and good position of the screws. At this point, the wound is copiously irr igated. Deep layers closed with 0 Vicryl, subcutaneous tissue with 2-0 Vicryl, and then skin april . Skin is washed and dried and then silver dressing is applied. The patient tolerated the procedure well. Instrument and sponge counts were correct. The patient wa s transferred to recovery room in stable condition. The patient will be toe-touch weightbearing left lower extremity with assistance and assistive device for ambulation and transfers. She is to do physical therapy, occupational therapy and have social w ork consultation. She will be on perioperative DVT prophylaxis, mechanical and chemical, and also hernandes ve perioperative antibiotics for 24 hours. The patient's brother and sister are contacted in the hospital room. Postoperative case is discussed . Questions are answered. They verbalized understanding and satisfaction with the plan as outlined. TD: 09/24/2018 06:36
[2018-09-24] MEDS: HYDROcod/ACETAM 5/325 MG TABLET PO PRN ×2 (09:17→19:18)
[2018-09-24] MEDS: POLYETHYLENE GLYCOL 3350 17 GM PACKET PO SCH (09:19)
[2018-09-24] MEDS: SENNA 8.6 MG TABLET PO SCH (09:19)
[2018-09-24] MEDS: DOCUSATE SODIUM 250 MG CAPSULE PO SCH (09:21)
--- NOTE | 2018-09-24 10:07 | XRAY Report ---
Reason: Left hip nailing Procedure Date: 09/23/2018 Accession Number: [id number] / [id number] Procedure: XR - Hip w/Pelvis 2-3V LT CPT Code: FULL RESULT: EXAM: FLUOROSCOPIC GUIDANCE EXAM DATE: 09/23/2018 06:26 PM. CLINICAL HISTORY: Left hip nailing. COMPARISON: HIP W/PELVIS 2-3V RT 06/19/2018 1:00 PM LT HIP NAILING 09/23/2018 4:05 PM. FINDINGS: The fluoroscopic images of the left hip are submitted demonstrating 3 partially threaded cannulated screws traversing the left femoral neck fracture in expected alignment. IMPRESSION: Fluoroscopic guidance provided for left hip nailing. Total fluoroscopy time: 58 seconds. 21.913 mGy Number of images: 3. RADIA
--- NOTE | 2018-09-24 10:07 | XRAY Report ---
Reason: Hip Pinning in OR Procedure Date: 09/23/2018 Accession Number: [id number] / [id number] Procedure: [place] - OR C-Arm Procedure CPT Code: FULL RESULT: EXAM: FLUOROSCOPIC GUIDANCE EXAM DATE: 09/23/2018 06:26 PM. CLINICAL HISTORY: Left hip nailing. COMPARISON: HIP W/PELVIS 2-3V RT 06/19/2018 1:00 PM LT HIP NAILING 09/23/2018 4:05 PM. FINDINGS: The fluoroscopic images of the left hip are submitted demonstrating 3 partially threaded cannulated screws traversing the left femoral neck fracture in expected alignment. IMPRESSION: Fluoroscopic guidance provided for left hip nailing. Total fluoroscopy time: 58 seconds. 21.913 mGy Number of images: 3. RADIA
[2018-09-24] MEDS: ACETAMINOPHEN 325 MG TABLET PO PRN (11:41)
--- NOTE | 2018-09-24 11:58 | PROVIDER PROGRESS NOTE ---
Assessment/Plan - Problem List (1) Delirium Assessment/Plan: The patient is confused, not cooperative, pulling at her iv site. She warned us yesterday, pre-op, that she gets a bad reaction to general anesthesia, gets confused and has even needed leather wrist restraints in the past, she told me. She is delirious today post-op. She needs to helped feed herself. Will treat with prn meds for agitation and soft wrist restraints. Will decrease her narcotics be adding to the confusion, use only acetaminophen or ketolorac for pain control. (2) Accidental fall Qualifiers: Encounter type: subsequent encounter Qualified Code(s): W19.XXXD - Unspecified fall, subsequent encounter Assessment/Plan: When her delirium clears and she cooperates, will do orthostatic VS checks. (3) Subcapital fracture of left femur Qualifiers: Encounter type: subsequent encounter Fracture type: closed Assessment/Plan: Today is POD #1. PT and OT to start was planned, which needs to await till her delirium clears. Pain meds prn ordered. (4) HTN (hypertension) Assessment/Plan: She had been non-compliant at home with her prescribed Amlodipine and had presented to the ER with systolic BP of 238 mmHg. BP is under better control with the prn Labetolol and topical NTP that was ordered. Now that she is post-op and no longer npo, will restart her Amlodipine dose, adjust dose if needed, since she told me it dropped her BP too low. (5) CAD (coronary artery disease) Assessment/Plan: Stable currently Daily aspirin to be started or continued. (6) Non-compliance Assessment/Plan: It is unclear why she was on no meds post CABG, or to treat hypertension. - Current Meds Current Meds: Current Medications Generic Name Dose Route Start Last Admin Trade Name Freq PRN Reason Stop Dose Admin Acetaminophen 650 - 975 mg 09/23/18 17:56 09/24/18 11:41 Tylenol PO 650 mg Q4HR PRN Administration PAIN Hydrocodone Bitart/Acetaminophen 1 tab 09/22/18 20:04 09/24/18 09:17 Rifle 5/325 PO 1 tab Q4HR PRN Administration PAIN Docusate Sodium 250 - 500 mg 09/24/18 09:00 09/24/18 09:21 Colace 250mg Capsule PO 250 mg DAILY BRADLEY Administration Hydromorphone HCl 2 mg 09/23/18 13:51 09/23/18 22:59 Dilaudid (Vial) IVP 2 mg Q2H PRN Administration PAIN Potassium Chloride/Dextrose/Sod Cl 1,000 mls @ 100 mls/hr 09/22/18 20:00 09/24/18 09:14 IV Infused .Q10H BRADLEY Infusion Acetaminophen 100 mls @ 400 mls/hr 09/23/18 17:56 09/24/18 04:49 Ofirmev IV Infused Q6HR PRN Infusion PAIN Nitroglycerin 0.5 inch 09/23/18 09:04 09/24/18 10:34 Nitro-Bid (Pkt) TOP 0.5 inch Q8H BRADLEY Administration Ondansetron HCl 4 mg 09/22/18 19:01 09/24/18 02:30 Zofran Inj IVP 4 mg Q6HR PRN Administration Nausea / Vomiting Polyethylene Glycol 17 gm 09/23/18 09:00 09/24/18 09:19 Miralax PO 17 gm DAILY BRADLEY Administration Senna 8.6 - 17.2 mg 09/24/18 09:00 09/24/18 09:19 Senokot PO 8.6 mg DAILY BRADLEY Administration Sodium Chloride 10 ml 09/22/18 19:01 09/22/18 20:57 Normal Saline Flush 0.9% IVP 10 ml PRN PRN Administration NEEDED PER PROVIDER ORDERS Sodium Chloride 10 ml 09/23/18 01:00 09/24/18 03:45 Normal Saline Flush 0.9% IVP 10 ml 0100,0900,1700 BRADLEY Administration Sodium Chloride 10 ml 09/24/18 01:00 09/24/18 03:46 Normal Saline Flush 0.9% IVP 10 ml 0100,0900,1700 BRADLEY Administration - Lab Result Fish Bone Diagrams: 09/24/18 04:00 09/24/18 04:00 - Additional Planning My Orders: My Active Orders 09/23/18 13:51 HYDROmorphone (VIAL) [Dilaudid (Vial)] 2 mg IVP Q2H PRN 09/24/18 09:00 Docusate Sodium 250Mg Capsule [Colace 250Mg Capsule] 250 - 500 mg PO DAILY Senna [Senokot] 8.6 - 17.2 mg PO DAILY Objective Vital Signs: Vital Signs - 24 hr 09/23/18 09/23/18 09/23/18 13:00 13:26 13:39 Temperature 36.8 C Heart Rate Heart Rate [ 79 79 78 Brachial] Respiratory 16 Rate Blood Pressure Blood Pressure [Right Ankle] Blood Pressure 181/85 H 193/90 H 169/135 H [Right Brachial artery] O2 Saturation 93 09/23/18 09/23/18 09/23/18 16:00 17:44 17:45 Temperature 36.6 C 37.5 C Heart Rate 75 68 Heart Rate [ 80 Brachial] Respiratory 20 17 20 Rate Blood Pressure 182/100 H 196/91 H Blood Pressure [Right Ankle] Blood Pressure 203/98 H [Right Brachial artery] O2 Saturation 94 100 98 09/23/18 09/23/18 09/23/18 17:50 17:57 18:00 Temperature 37.4 C Heart Rate 66 68 69 Heart Rate [ Brachial] Respiratory 20 17 19 Rate Blood Pressure 206/104 H 203/108 H 213/106 H Blood Pressure [Right Ankle] Blood Pressure [Right Brachial artery] O2 Saturation 100 97 100 09/23/18 09/23/18 09/23/18 18:05 18:10 18:15 Temperature 37.2 C Heart Rate 69 74 77 Heart Rate [ Brachial] Respiratory 20 17 12 Rate Blood Pressure 197/92 H 179/80 H 164/78 H Blood Pressure [Right Ankle] Blood Pressure [Right Brachial artery] O2 Saturation 100 100 97 09/23/18 09/23/18 09/23/18 18:20 18:25 18:30 Temperature 37.1 C Heart Rate 77 78 78 Heart Rate [ Brachial] Respiratory 23 19 18 Rate Blood Pressure 159/83 H 161/78 H 177/78 H Blood Pressure [Right Ankle] Blood Pressure [Right Brachial artery] O2 Saturation 97 96 100 09/23/18 09/23/18 09/23/18 18:41 19:26 20:26 Temperature 37.7 C H 36.5 C 36.3 C L Heart Rate Heart Rate [ 78 76 73 Brachial] Respiratory 14 16 16 Rate Blood Pressure Blood Pressure [Right Ankle] Blood Pressure 167/76 H 173/86 H 164/84 H [Right Brachial artery] O2 Saturation 93 98 94 09/24/18 09/24/18 09/24/18 00:33 01:33 01:38 Temperature 36.7 C Heart Rate Heart Rate [ 74 69 71 Brachial] Respiratory 16 Rate Blood Pressure Blood Pressure [Right Ankle] Blood Pressure 164/85 H 179/86 H 167/86 H [Right Brachial artery] O2 Saturation 94 09/24/18 09/24/18 09/24/18 01:43 02:05 02:21 Temperature Heart Rate Heart Rate [ 67 75 71 Brachial] Respiratory Rate Blood Pressure Blood Pressure [Right Ankle] Blood Pressure 164/69 H 151/104 H 127/95 H [Right Brachial artery] O2 Saturation 09/24/18 09/24/18 09/24/18 02:38 03:01 04:00 Temperature 36.6 C Heart Rate Heart Rate [ 65 68 83 Brachial] Respiratory 18 Rate Blood Pressure Blood Pressure 165/63 H 140/71 H 106/88 H [Right Ankle] Blood Pressure [Right Brachial artery] O2 Saturation 94 09/24/18 09/24/18 09/24/18 08:00 09:00 11:50 Temperature 36.4 C L 36.4 C L Heart Rate Heart Rate [ 67 67 74 Brachial] Respiratory 20 20 20 Rate Blood Pressure Blood Pressure 216/87 H 216/87 H 216/90 H [Right Ankle] Blood Pressure [Right Brachial artery] O2 Saturation 93 93 93 Oxygen O2 Source Room air I&O (Last 24 Hrs): Intake and Output Totals x24h 09/22/18 09/23/18 09/24/18 23:59 23:59 23:59 Intake Total 2610.000 1751.667 Output Total 200 1250 1600 Balance -200 1360.000 151.667 General: Alert HEENT: Mucous membr. moist/pink Neck: Supple Neuro: Disoriented Cardiovascular: Regular rate, No murmurs Respiratory: No respiratory distress, Breath sounds nml Abdomen: Soft Extremities: No edema - Results Results: Laboratory Results WBC 12.5 x10^3/uL (4.8-10.8) H 09/24/18 04:00 RBC 4.41 10^6/uL (4.20-5.40) 09/24/18 04:00 Hgb 13.3 g/dL (12.0-16.0) 09/24/18 04:00 Hct 41.9 % (37.0-47.0) 09/24/18 04:00 MCV 95.0 fL (81.0-99.0) 09/24/18 04:00 MCH 30.2 pg (27.0-31.0) 09/24/18 04:00 MCHC 31.7 g/dL (32.0-36.0) L 09/24/18 04:00 RDW 14.8 % (12.0-15.0) 09/24/18 04:00 Plt Count 232 10^3/uL (130-450) 09/24/18 04:00 MPV 9.7 fL (7.9-10.8) 09/24/18 04:00 Neut # (Auto) 10.5 10^3/uL (1.5-6.6) H 09/24/18 04:00 Lymph # (Auto) 1.0 10^3/uL (1.5-3.5) L 09/24/18 04:00 [place] # (Auto) 0.9 10^3/uL (0.0-1.0) 09/24/18 04:00 Eos # (Auto) 0.0 10^3/uL (0.0-0.7) 09/24/18 04:00 Baso # (Auto) 0.0 10^3/uL (0.0-0.1) 09/24/18 04:00 Absolute Nucleated RBC 0.00 x10^3/uL 09/24/18 04:00 Nucleated RBC % 0.0 /100WBC 09/24/18 04:00 PT 12.1 secs (9.9-12.6) 09/22/18 18:43 INR 1.1 (0.8-1.2) 09/22/18 18:43 APTT 28.3 secs (24.9-33.3) 09/22/18 18:43 Sodium 140 mmol/L (135-145) 09/24/18 04:00 Potassium 3.7 mmol/L (3.5-5.0) 09/24/18 04:00 Chloride 109 mmol/L (101-111) 09/24/18 04:00 Carbon Dioxide 19 mmol/L (21-32) L 09/24/18 04:00 Anion Gap 12.0 (6-13) 09/24/18 04:00 BUN 10 mg/dL (6-20) 09/24/18 04:00 Creatinine 1.0 mg/dL (0.4-1.0) 09/24/18 04:00 Estimated GFR (MDRD) 53 (>89) L 09/24/18 04:00 Glucose 170 mg/dL (70-100) H 09/24/18 04:00 Calcium 8.2 mg/dL (8.5-10.3) L 09/24/18 04:00 Magnesium 2.4 mg/dL (1.7-2.8) 09/22/18 18:43 Total Bilirubin 0.9 mg/dL (0.2-1.0) 09/22/18 18:43 AST 14 IU/L (10-42) 09/22/18 18:43 ALT 13 IU/L (10-60) 09/22/18 18:43 Alkaline Phosphatase 85 IU/L (42-121) 09/22/18 18:43 Troponin I < 0.04 ng/mL (<0.49) 09/23/18 09:18 Total Protein 6.6 g/dL (6.7-8.2) L 09/22/18 18:43 Albumin 3.6 g/dL (3.2-5.5) 09/22/18 18:43 Globulin 3.0 g/dL (2.1-4.2) 09/22/18 18:43 Albumin/Globulin Ratio 1.2 (1.0-2.2) 09/22/18 18:43 Lipase 17 U/L (22-51) L 09/22/18 18:43 Urine Color YELLOW 09/22/18 20:08 Urine Clarity CLEAR (CLEAR) 09/22/18 20:08 Urine pH 6.5 PH (5.0-7.5) 09/22/18 20:08 Ur Specific [place] <=1.005 (1.002-1.030) 09/22/18 20:08 Urine Protein NEGATIVE mg/dL (NEGATIVE) 09/22/18 20:08 Urine Glucose (UA) NEGATIVE mg/dL (NEGATIVE) 09/22/18 20:08 Urine Ketones NEGATIVE mg/dL (NEGATIVE) 09/22/18 20:08 Urine Occult Blood SMALL (NEGATIVE) H 09/22/18 20:08 Urine Nitrite POSITIVE (NEGATIVE) H 09/22/18 20:08 Urine Bilirubin NEGATIVE (NEGATIVE) 09/22/18 20:08 Urine Urobilinogen 0.2 (NORMAL) E.U./dL (NORMAL) 09/22/18 20:08 Ur Leukocyte Esterase NEGATIVE (NEGATIVE) 09/22/18 20:08 Urine RBC 0-5 /HPF (0-5) 09/22/18 20:08 Urine WBC 0-3 /HPF (0-5) 09/22/18 20:08 Ur Squamous Epith Cells FEW Squamous (<= Few) 09/22/18 20:08 Urine Bacteria Few /HPF (None Seen) 09/22/18 20:08 Ur Microscopic Review INDICATED 09/22/18 20:08 Urine Culture Comments INDICATED 09/22/18 20:08
[2018-09-24] MEDS: D5NS W/20 MEQ KCL 1,000 ML IV SCH ×3 (11:59→21:30)
[2018-09-24] MEDS: HYDROmorphone 2 MG/ML VIAL IVP PRN ×3 (12:01→22:17)
[2018-09-24] MEDS: FAMOTIDINE 20 MG/2 ML VIAL IVP SCH (12:04)
[2018-09-24] MEDS: PROCHLORPERAZINE 10 MG/2 ML VIAL IVP PRN ×2 (16:11→22:17)
[2018-09-25] MEDS: LABETALOL 5 MG/1 ML 20 ML MDV IVP PRN ×3 (00:49→12:42)
[2018-09-25] MEDS: SODIUM CHLORIDE FLUSH 0.9% 10 ML SYRINGE IVP SCH ×6 (01:08→20:00)
[2018-09-25] MEDS: HYDROmorphone 2 MG/ML VIAL IVP PRN (01:08)
[2018-09-25] MEDS: NITROGLYCERIN 2% PASTE TOP SCH ×3 (03:30→17:57)
[2018-09-25 05:28] LABS: BASOPHILS % (AUTO) 0.3 %; EOSINOPHILS # (AUTO) 0.1 10^3/uL (0.0-0.7); EOSINOPHILS % (AUTO) 0.6 %; HGB - HEMOGLOBIN 13.9 g/dL (12.0-16.0); LYMPHOCYTES # (AUTO) 1.9 10^3/uL (1.5-3.5); LYMPHOCYTES % (AUTO) 15.8 %; MEAN CORPUSCULAR HEMOGLOBIN 29.6 pg (27.0-31.0); MEAN CORPUSCULAR HGB CONC 31.4 g/dL (32.0-36.0); MEAN CORPUSCULAR VOLUME 94.2 fL (81.0-99.0); MEAN PLATELET VOLUME 9.7 fL (7.9-10.8); MONOCYTES # (AUTO) 0.9 10^3/uL (0.0-1.0); NEUTROPHILS # (AUTO) 8.7 10^3/uL (1.5-6.6); NEUTROPHILS % (AUTO) 74.5 %; PLT - PLATELET COUNT 243 10^3/uL (130-450); RED BLOOD COUNT 4.69 10^6/uL (4.20-5.40); RED CELL DISTRIBUTION WIDTH 14.6 % (12.0-15.0); WHITE BLOOD COUNT 11.7 x10^3/uL (4.8-10.8)
[2018-09-25 05:31] LABS: CALCIUM 8.8 mg/dL (8.5-10.3); CREATININE 0.9 mg/dL (0.4-1.0)
[2018-09-25] MEDS: ACETAMINOPHEN 1,000 MG/100 ML 100 ML IV PRN (05:37)
[2018-09-25] MEDS: SODIUM CHLORIDE FLUSH 0.9% 10 ML SYRINGE IVP PRN (06:14)
--- NOTE | 2018-09-25 07:02 | PROVIDER PROGRESS NOTE ---
Subjective - Prog Note Date Prog Note Date: 09/25/18 Prog Note Time: 06:50 - Subjective Subjective: Patient says left hip feels okay. She states that she wants to get out of the hospital. She denies left lower extremity pain at this time. She denies other significant complaints aside from wanting to leave the hospital. Objective - Vital Signs/Intake & Output Vital Signs: Vital Signs x48h Temp Pulse Resp BP Pulse Ox 09/25/18 06:45 88 178/99 H 09/25/18 06:26 80 173/87 H 09/25/18 06:09 88 204/106 H 09/25/18 04:51 37.6 C H 84 20 174/121 H 93 09/25/18 01:30 72 152/123 H 09/25/18 01:14 72 182/77 H 09/25/18 01:00 195/88 H 09/25/18 00:44 36.9 C 84 18 211/108 H 94 Intake & Output: Intake & Output 09/22/18 09/23/18 09/24/18 09/25/18 23:59 23:59 23:59 23:59 Intake Total 2610.000 3143.333 820 Output Total 200 1250 2575 3725 Balance -200 1360.000 568.333 -2905 - Lab Results Fish Bones: 09/25/18 04:45 09/25/18 04:45 Other Labs: Lab Results x24hrs 09/25/18 09/25/18 Range/Units 04:45 04:45 WBC 11.7 H (4.8-10.8) x10^3/uL RBC 4.69 (4.20-5.40) 10^6/uL Hgb 13.9 (12.0-16.0) g/dL Hct 44.2 (37.0-47.0) % MCV 94.2 (81.0-99.0) fL MCH 29.6 (27.0-31.0) pg MCHC 31.4 L (32.0-36.0) g/dL RDW 14.6 (12.0-15.0) % Plt Count 243 (130-450) 10^3/uL MPV 9.7 (7.9-10.8) fL Neut # (Auto) 8.7 H (1.5-6.6) 10^3/uL Lymph # (Auto) 1.9 (1.5-3.5) 10^3/uL [place] # (Auto) 0.9 (0.0-1.0) 10^3/uL Eos # (Auto) 0.1 (0.0-0.7) 10^3/uL Baso # (Auto) 0.0 (0.0-0.1) 10^3/uL Absolute Nucleated RBC 0.00 x10^3/uL Nucleated RBC % 0.0 /100WBC Sodium 142 (135-145) mmol/L Potassium 3.4 L (3.5-5.0) mmol/L Chloride 108 (101-111) mmol/L Carbon Dioxide 22 (21-32) mmol/L Anion Gap 12.0 (6-13) BUN 10 (6-20) mg/dL Creatinine 0.9 (0.4-1.0) mg/dL Estimated GFR (MDRD) 60 L (>89) Glucose 123 H (70-100) mg/dL Calcium 8.8 (8.5-10.3) mg/dL - Other Results/Comments Other Results/Comments: Left lower extremity she is able to flex and extend toes ankle and knee. Palpable dorsalis pedis. She moves her hip somewhat comfortably with some hip flexion internal and external rotation without prompting. No obvious pain with gentle logroll. Calf soft nontender bilaterally. Left hip silver dressing clean dry intact. Minimal ecchymosis visualized through the clear portion of the bandage. No erythema.Thigh soft Assessment/Plan - Problem List (1) Subcapital fracture of left femur Impression: Patient doing well postoperative day 2 status post left hip mini open pinning for subcapital femur fracture. No signs of infection or DVT noted today. I recommend continued DVT prophylaxis mechanical and chemical. Analgesics as necessary. I recommend formal physical therapy and a home program even at the [facility] facility. She should ambulate with assistance and assistive device. Toe-touch weightbearing left lower extremity. Patient should follow-up 10 to 14 days orthopedic clinic or sooner on an as- needed basis. Expect to remove april at that time. The above discussed with patient questions answered. She is in general agreement. Qualifiers: Encounter type: subsequent encounter Fracture type: closed Fracture healing: with routine healing Qualified Code(s): S72.012D - Unspecified intracapsular fracture of left femur, subsequent encounter for closed fracture with routine healing
--- NOTE | 2018-09-25 09:47 | CT Report ---
Reason: Fall in hosp room Procedure Date: 09/25/2018 Accession Number: [id number] / [id number] Procedure: CT - CERVICAL SPINE WO CPT Code: FULL RESULT: EXAM: CT CERVICAL SPINE WITHOUT CONTRAST DATE: 09/25/2018 09:33 AM. HISTORY: Fall in hospital room. Neck pain. COMPARISONS: None. TECHNIQUE: Thin-section axial images were acquired of the cervical spine without contrast. Post-processing: Coronal and sagittal reformats. Other: None. In accordance with CT protocol optimization, one or more of the following dose reduction techniques were utilized for this exam: automated exposure control, adjustment of mA and/or KV based on patient size, or use of iterative reconstructive technique. FINDINGS: Alignment: Reversal of the normal cervical lordotic curvature. C3-C4 shows 2.9 mm of anterolisthesis. C7-T1 shows 2.3 mm of anterolisthesis. Bones: No fracture or bone lesion. Interspace Levels/Facets: C1-C2: Anterior articulation shows fairly advanced arthritic change. Lateral articulations are normal. No stenosis. C2-C3: Unremarkable. C3-C4: Anterolisthesis, some disk space height loss. No central or foraminal stenosis. C4-C5: Marginal arthrosis, more in the right. Mild right foraminal stenosis. Left neural foramen is normal. No central stenosis. C5-C6: Marginal arthrosis also present. Mild central stenosis. Mild bilateral foraminal stenosis. Prominent facets. C6-C7: Significant marginal arthrosis seen circumferentially around the disk. Disk osteophyte complex causes indentation into the central canal, mild to moderate central stenosis. Neural foramina are widely patent. C7-T1: Some disk space height loss, no stenosis. Musculature: Moderate fatty atrophy of the multifidus muscle is seen. Other: The paravertebral and prevertebral soft tissues are unremarkable. The lung apices are clear. IMPRESSION: 1. Reversal of the normal cervical lordotic curvature. C3-C4 shows 2.9 mm of anterolisthesis. C7-T1 shows 2.3 mm of anterolisthesis. Moderate fatty atrophy of the multifidus muscle is seen. 2. C2-C3 is normal. 3. C3-C4 shows anterolisthesis. No central or foraminal stenosis. 4. C4-C5 shows marginal arthrosis on the right side creating mild right foraminal narrowing. 5. C5-C6 shows marginal arthrosis, mild bilateral foraminal stenosis and mild central stenosis. 6. C6-C7 shows marginal arthrosis circumferentially. There is mild to moderate central stenosis. No foraminal stenosis. 7. C7-T1 shows some disk space height loss, otherwise unremarkable. RADIA
--- NOTE | 2018-09-25 09:54 | CT Report ---
Reason: Fall in hospital room Procedure Date: 09/25/2018 Accession Number: [id number] / [id number] Procedure: CT - HEAD WO CPT Code: FULL RESULT: EXAM: CT HEAD EXAM DATE: 09/25/2018 09:20 AM. CLINICAL HISTORY: Fall in hospital room. COMPARISON: MRI BRAIN W/O CONTRAST 03/13/2011 5:43 PM. TECHNIQUE: Multiaxial CT images were obtained from the foramen magnum to the vertex. Reformats: Sagittal and coronal. IV contrast: None. In accordance with CT protocol optimization, one or more of the following dose reduction techniques were utilized for this exam: automated exposure control, adjustment of mA and/or KV based on patient size, or use of iterative reconstructive technique. FINDINGS: Parenchyma: No evidence of an acute vascular insult or acute parenchymal hemorrhage. No midline shift. No mass-effect. Resection cavity along the right anterior temporal lobe is again seen with marginal areas of high density, stable. Extraaxial Spaces: Extra-axial spaces are prominent. No subdural or epidural collections identified. Ventricles: Ventricles are enlarged although symmetric. Sinuses and Orbits: Imaged paranasal sinuses, orbits, and mastoids show no significant abnormality. Bones: No acute fracture or changes are seen from right frontal temporal craniotomy, as before. Other: Changes are seen from bilateral lens surgery. Vascular calcifications. IMPRESSION: 1. No acute intracranial abnormality is identified. 2. No acute fracture. 3. Postsurgical changes with right frontal temporal craniotomy and right temporal lobe resection cavity, stable. 4. Parenchymal volume loss and chronic white matter changes. RADIA
--- NOTE | 2018-09-25 09:55 | CT Report ---
Reason: fall in hospital room Procedure Date: 09/25/2018 Accession Number: [id number] / [id number] Procedure: CT - LUMBAR SPINE WO CPT Code: FULL RESULT: EXAM: CT LUMBAR SPINE WITHOUT CONTRAST EXAM DATE: 09/25/2018 09:32 AM. CLINICAL HISTORY: Fall in hospital room. COMPARISONS: None. TECHNIQUE: Thin-section axial images were acquired of the lumbar spine from T12 to S1 without contrast. Post-processing: Coronal and sagittal reformats. Other: None. In accordance with CT protocol optimization, one or more of the following dose reduction techniques were utilized for this exam: automated exposure control, adjustment of mA and/or KV based on patient size, or use of iterative reconstructive technique. FINDINGS: Alignment: 13.9 degrees levoscoliosis between L2-L3 and L5-S1. No listhesis. Bones: Five [id number] lumbar vertebral bodies are present. Osteopenic bones. No fractures. Disk Levels/Facets: T12-L1: Unremarkable. L1-L2: Unremarkable. L2-L3: Unremarkable. L3-L4: Disk space height loss, marginal arthrosis. No central stenosis. No foraminal stenosis. L4-L5: Disk space height loss, marginal arthrosis. Some vacuum disk phenomenon also seen. No central stenosis. Mild bilateral foraminal stenosis. L5-S1: Unremarkable. Musculature: Moderate fatty atrophy of the multifidus muscle. IMPRESSION: 1. No fractures. 2. 13.9 degrees levoscoliosis between L2-L3 and L5-S1. No listhesis. Bones are osteopenic, no fractures. 3. L3-L4 shows disk space height loss and marginal arthrosis. No central stenosis. No foraminal stenosis. 4. L4-L5 disk space height loss and marginal arthrosis. Some vacuum disk phenomenon. No central stenosis. Mild bilateral foraminal stenosis. 5. L5-S1 is unremarkable. RADIA
--- NOTE | 2018-09-25 09:58 | CT Report ---
Reason: fall in hosp room Procedure Date: 09/25/2018 Accession Number: [id number] / [id number] Procedure: CT - THORACIC SPINE WO CPT Code: FULL RESULT: EXAM: CT THORACIC SPINE WITHOUT CONTRAST EXAM DATE: 09/25/2018 09:32 AM. CLINICAL HISTORY: Fall in hospital room. COMPARISONS: None. TECHNIQUE: Thin-section axial images were acquired of the thoracic spine from C7 to L1 without contrast. Post-processing: Coronal and sagittal reformats. Other: None. In accordance with CT protocol optimization, one or more of the following dose reduction techniques were utilized for this exam: automated exposure control, adjustment of mA and/or KV based on patient size, or use of iterative reconstructive technique. FINDINGS: Alignment: A mild leftward cervical thoracic scoliosis has a Santiago angle of 19 degrees as measured from C6-T5 on this nonweightbearing examination. There is trace anterolisthesis of C7 on T1. Bones: Mild osteopenia is present. No fractures. Disk Levels/Facets: C5-C6: Severe disk height loss is present. A posterior disk/osteophyte complex causes mild spinal canal and mild right and moderate left foraminal narrowing. C6-C7: Severe disk height loss is accompanied by anterior endplate spurring. A posterior disk/osteophyte complex causes mild spinal canal and bilateral foraminal narrowing. C7-T1: The anterolisthesis, uncovertebral osteophytes, and mild bilateral facet osteoarthritis cause minimal spinal canal and mild left foraminal narrowing. T1-T2: Moderate disk height loss is accompanied by anterior endplate spurring. The scoliosis and uncovertebral osteophytes cause moderate right foraminal narrowing. T2-T3: Mild anterior endplate spurring is present. T3-T4: Mild anterior endplate spurring is present. T4-T5: Unremarkable. T5-T6: Unremarkable. T6-T7: Mild anterior endplate spurring is present. T7-T8: Mild disk and loss is accompanied by anterior endplate spurring. T8-T9: Anterior endplate spurring is accompanied by vacuum phenomenon. T9-T10: Mild disk height loss is accompanied by anterior endplate spurring. T10-T11: Mild disk height loss is accompanied by anterior endplate spurring. T11-T12: Mild anterior endplate spurring is present. T12-L1: Moderate facet osteoarthritis and mild ligamentum flavum hypertrophy have no neurologic consequence. Musculature: Normal. No fatty atrophy. Other: Arterial calcifications indicate atherosclerosis. The aortic arch diameter is borderline for aneurysmal dilatation. A 4.8 cm simple cyst is in the left kidney. A small right pleural effusion is present. Airspace opacity in the right lung is most consistent with pneumonia. IMPRESSION: 1. Mild leftward cervical thoracic scoliosis. 2. Minimal anterolisthesis of C7 on T1. 3. Mild spinal canal and right foraminal narrowing at C5-C6 due to a disk/osteophyte complex. 4. Mild spinal canal and bilateral foraminal narrowing at C6-C7 due to a disk/osteophyte complex. 5. Mild left foraminal narrowing at C7-T1 due to osteophytes. 6. Moderate right foraminal narrowing at T1-T2 due to scoliosis and osteophytes. 7. Small right pleural effusion and right lung pneumonia. RADIA
--- NOTE | 2018-09-25 11:30 | XRAY Report ---
Reason: fall in hosp room Procedure Date: 09/25/2018 Accession Number: [id number] / [id number] Procedure: XR - Hip w/Pelvis 2-3V RT CPT Code: FULL RESULT: EXAM: RIGHT HIP RADIOGRAPHY EXAM DATE: 09/25/2018 10:46 AM. CLINICAL HISTORY: Fall in hospital room. COMPARISON: LT HIP NAILING 09/23/2018 4:05 PM. TECHNIQUE: 2 views. FINDINGS: The examination is limited due to positioning as a result of the patient's inability to cooperate. Bones: Compared to intraoperative fluoroscopic image captures the visualized portion of the left hip screws appear similar. No definite right hip fracture is detected. Joints: Advanced degenerative changes of the right hip without dislocation. Soft Tissues: Normal. No soft tissue swelling. IMPRESSION: Limited examination with no definite acute fracture. RADIA
--- NOTE | 2018-09-25 11:44 | XRAY Report ---
Reason: fall in hosp room Procedure Date: 09/25/2018 Accession Number: [id number] / [id number] Procedure: XR - Ribs 3 View BILAT CPT Code: FULL RESULT: EXAM: BILATERAL RIB RADIOGRAPHY EXAM DATE: 09/25/2018 10:51 AM. CLINICAL HISTORY: Fall in hospital room. COMPARISON: CHEST 1 VIEW 09/22/2018 8:21 PM. TECHNIQUE: 2 views. FINDINGS: The examination is limited by the patient's inability to cooperate. Bones: Limited exam with no displaced fracture detected. Lungs: There is new lobar consolidation in the right lung. While previously increasing soft tissue prominence was seen projecting over the lung, this had the appearance of external breast tissue, air bronchograms are new. No sizable pleural effusion or pneumothorax. Mediastinum: Stable cardiomediastinal silhouette with mild cardiomegaly, post CABG changes and a tortuous calcified aorta. Other: Breast implants with peripheral calcification are redemonstrated. IMPRESSION: New extensive consolidation in the right lung. With the provided history, this is concerning for pulmonary contusion or aspiration in an atypical distribution. Radiograph is limited for detection of fractures, none are seen. RADIA
--- NOTE | 2018-09-25 11:55 | PROVIDER PROGRESS NOTE ---
Assessment/Plan - Problem List (1) Fall during current hospitalization Qualifiers: Encounter type: initial encounter Qualified Code(s): W19.XXXA - Unspecified fall, initial encounter; Y92.239 - Unspecified place in hospital as the place of occurrence of the external cause Assessment/Plan: She sustained an unwitnessed fall in her room today. She was found on the floor near her sink, on her right side. She complained of pain but could not describe where. A rapid response was called. Paramedics arrived in order to carefully manage her until her cervical spine was cleared by imaging. A C-collar was placed. At the time, she was answering questions but was vague, pupils were equal, 3mm and sluggishly reactive. BP was elevated )approx 160/100), but HR was normal at 80. She underwent a head CT, C-spine CT, and thoracic and lumbar CTs. These showed evidence of spinal degenerative disease including anterolisthesis but no areas of fracture and no areas that were suspicious for spinal cord injury. No intracranial bleeding or trauma seen. Will order restraints if she continues to have confusion or agitation. There are also complains of rib pain, therefore will perform x-rays to evaluate for rib fractures. Since she was found on her right hip, will perform x-rays of the hips and pelvis to look for fractures or problems with the new hip pinning. We will keep narcotics to a minimum, to prevent sedation or confusion. Will order Tylenol or Ofirmev PRN pain, no NSAIDs until she is cleared of evidence of bleeding, from the fall. Physical therapy was to start for the hip surgery, this will need to be postponed if there is ongoing pain from today's fall. Continue telemetry, watching for dysrhythmias that correlate with any dizziness. CRITICAL CARE TIME SPENT: 60 min (2) Subcapital fracture of left femur Qualifiers: Encounter type: subsequent encounter Fracture type: closed Fracture healing: with routine healing Qualified Code(s): S72.012D - Unspecified intracapsular fracture of left femur, subsequent encounter for closed fracture with routine healing Assessment/Plan: POD #2. The pelvic imaging today did not describe any new issues with the recent pinning. PT would have started today (after yesterday's confusion from anesthesia cleared 24 hours after surgery). However, will await full evaluation for trauma from today's fall in her hospital room and very likely the PT will start tomorrow. (3) Accidental fall Qualifiers: Encounter type: subsequent encounter Qualified Code(s): W19.XXXD - Unspecified fall, subsequent encounter Assessment/Plan: Fall at home. The current hip fracture occurred after a fall at home and there is a history of prior falls "from dizziness". Apparently because of this she is mostly bedridden at home. The plan was to start evaluating orthostatic vital signs today. Due to today's fall in the hospital room, will await for a complete work-up for trauma, start orthostatic vital sign checks tomorrow. Continue telemetry, watching for dysrhythmias that correlate with any dizziness. (4) Altered mental status Assessment/Plan: Patient informed us that after general anesthesia she has confusion, there was no details about how long it lasts. 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 Yesterday she was in acute confused requiring restraints until approximately 6 PM which was 24 hours after general anesthesia. Today she has intermittent confusion and this led to removal of her [place] cath eter and telemetry leads this morning on her own. Following that, she had the fall in her room and cannot remember why she got up. Will reorder restraints if needed, if the patient is agitated or if she is confused. We will keep narcotics and benzodiazepines or other sedatives to a minimum. (5) Hx of intracranial hemorrhage Assessment/Plan: Preop, the patient was lucid and was able to tell me that she had an intracranial hemorrhage and required a brain aneurysm clip. 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 Neurologic consequences of this are unclear: Possibly memory problems, personality change or chronic dizziness. (6) Non-compliance Assessment/Plan: With a lobectomy, she may have impaired cognition and memory. (7) HTN (hypertension) Assessment/Plan: Elevated intermittently. Will adjust meds for BP control. (8) CAD (coronary artery disease) Assessment/Plan: No chest pain complaints. Resting EKG and Echo done pre-op were stable. Continue telemetry, watching for dysrhythmias that correlate with any dizziness. - Current Meds Current Meds: Current Medications Generic Name Dose Route Start Last Admin Trade Name Freq PRN Reason Stop Dose Admin Acetaminophen 650 - 975 mg 09/23/18 17:56 09/24/18 11:41 Tylenol PO 650 mg Q4HR PRN Administration PAIN Hydrocodone Bitart/Acetaminophen 1 tab 09/22/18 20:04 09/24/18 19:18 [place] 5/325 PO 1 tab Q4HR PRN Administration PAIN Docusate Sodium 250 - 500 mg 09/24/18 09:00 09/24/18 09:21 Colace 250mg Capsule PO 250 mg DAILY BRADLEY Administration Famotidine 20 mg 09/23/18 18:53 09/24/18 12:04 Pepcid IVP 20 mg DAILY BRADLEY Administration Hydromorphone HCl 2 mg 09/23/18 13:51 09/25/18 01:08 Dilaudid (Vial) IVP 2 mg Q2H PRN Administration PAIN Potassium Chloride/Dextrose/Sod Cl 1,000 mls @ 100 mls/hr 09/22/18 20:00 09/25/18 09:06 IV Infused .Q10H BRADLEY Infusion Acetaminophen 100 mls @ 400 mls/hr 09/23/18 17:56 09/25/18 06:10 Ofirmev IV Infused Q6HR PRN Infusion PAIN Labetalol HCl 10 mg 09/24/18 11:16 09/25/18 06:14 Trandate Inj IVP 10 mg Q6HR PRN Administration PER PHYSICIAN ORDER Nitroglycerin 0.5 inch 09/23/18 09:04 09/25/18 11:19 Nitro-Bid (Pkt) TOP 0.5 inch Q8H BRADLEY Administration Ondansetron HCl 4 mg 09/22/18 19:01 09/24/18 02:30 Zofran Inj IVP 4 mg Q6HR PRN Administration Nausea / Vomiting Polyethylene Glycol 17 gm 09/23/18 09:00 09/24/18 09:19 Miralax PO 17 gm DAILY BRADLEY Administration Prochlorperazine Edisylate 10 mg 09/23/18 17:56 09/24/18 22:17 Compazine Inj IVP 10 mg Q6HR PRN Administration Nausea / Vomiting Senna 8.6 - 17.2 mg 09/24/18 09:00 09/24/18 09:19 Senokot PO 8.6 mg DAILY BRADLEY Administration Sodium Chloride 10 ml 09/22/18 19:01 09/25/18 06:14 Normal Saline Flush 0.9% IVP 10 ml PRN PRN Administration NEEDED PER PROVIDER ORDERS Sodium Chloride 10 ml 09/23/18 01:00 09/25/18 01:08 Normal Saline Flush 0.9% IVP 10 ml 0100,0900,1700 BRADLEY Administration Sodium Chloride 10 ml 09/24/18 01:00 09/25/18 01:55 Normal Saline Flush 0.9% IVP Not Given 0100,0900,1700 BRADLEY - Lab Result Fish Bone Diagrams: 09/25/18 04:45 09/25/18 04:45 - Additional Planning My Orders: My Active Orders 09/25/18 10:08 Miscellaenous Nursing Order [RC] ONCE Objective Vital Signs: Vital Signs - 24 hr 09/24/18 09/24/18 09/24/18 13:00 16:00 20:00 Temperature 36.9 C 36.6 C Heart Rate [ 70 65 75 Brachial] Respiratory 18 18 18 Rate Blood Pressure 163/88 H 190/102 H [Left Brachial artery] Blood Pressure 154/74 H [Right Ankle] O2 Saturation 93 96 95 09/24/18 09/25/18 09/25/18 22:50 00:44 01:00 Temperature 36.9 C Heart Rate [ 84 Brachial] Respiratory 18 Rate Blood Pressure 174/84 H 211/108 H 195/88 H [Left Brachial artery] Blood Pressure [Right Ankle] O2 Saturation 94 09/25/18 09/25/18 09/25/18 01:14 01:30 04:51 Temperature 37.6 C H Heart Rate [ 72 72 84 Brachial] Respiratory 20 Rate Blood Pressure 182/77 H 152/123 H 174/121 H [Left Brachial artery] Blood Pressure [Right Ankle] O2 Saturation 93 09/25/18 09/25/18 09/25/18 06:09 06:26 06:45 Temperature Heart Rate [ 88 80 88 Brachial] Respiratory Rate Blood Pressure 204/106 H 173/87 H 178/99 H [Left Brachial artery] Blood Pressure [Right Ankle] O2 Saturation 09/25/18 09/25/18 09/25/18 07:25 08:40 08:50 Temperature 36.6 C Heart Rate [ 81 95 88 Brachial] Respiratory 20 Rate Blood Pressure 136/94 H 166/119 H 202/114 H [Left Brachial artery] Blood Pressure [Right Ankle] O2 Saturation 94 09/25/18 09/25/18 09/25/18 09:00 09:40 10:00 Temperature 36.4 C L Heart Rate [ 91 91 93 Brachial] Respiratory 18 Rate Blood Pressure 153/106 H 176/122 H 217/112 H [Left Brachial artery] Blood Pressure [Right Ankle] O2 Saturation 95 93 09/25/18 11:44 Temperature Heart Rate [ 80 Brachial] Respiratory 22 Rate Blood Pressure 193/86 H [Left Brachial artery] Blood Pressure [Right Ankle] O2 Saturation 92 Oxygen O2 Source Room air I&O (Last 24 Hrs): Intake and Output Totals x24h 09/23/18 09/24/18 09/25/18 23:59 23:59 23:59 Intake Total 2610.000 3143.333 1100 Output Total 1250 2575 3725 Balance 1360.000 568.333 -2625 General: Other (Awake, slow to answer) HEENT: Mucous membr. moist/pink Neck: Supple Neuro: Non Focal Cardiovascular: Regular rate, No murmurs Respiratory: No respiratory distress, Breath sounds nml Abdomen: Soft Extremities: No edema - Results Results: Laboratory Results WBC 11.7 x10^3/uL (4.8-10.8) H 09/25/18 04:45 RBC 4.69 10^6/uL (4.20-5.40) 09/25/18 04:45 Hgb 13.9 g/dL (12.0-16.0) 09/25/18 04:45 Hct 44.2 % (37.0-47.0) 09/25/18 04:45 MCV 94.2 fL (81.0-99.0) 09/25/18 04:45 MCH 29.6 pg (27.0-31.0) 09/25/18 04:45 MCHC 31.4 g/dL (32.0-36.0) L 09/25/18 04:45 RDW 14.6 % (12.0-15.0) 09/25/18 04:45 Plt Count 243 10^3/uL (130-450) 09/25/18 04:45 MPV 9.7 fL (7.9-10.8) 09/25/18 04:45 Neut # (Auto) 8.7 10^3/uL (1.5-6.6) H 09/25/18 04:45 Lymph # (Auto) 1.9 10^3/uL (1.5-3.5) 09/25/18 04:45 [place] # (Auto) 0.9 10^3/uL (0.0-1.0) 09/25/18 04:45 Eos # (Auto) 0.1 10^3/uL (0.0-0.7) 09/25/18 04:45 Baso # (Auto) 0.0 10^3/uL (0.0-0.1) 09/25/18 04:45 Absolute Nucleated RBC 0.00 x10^3/uL 09/25/18 04:45 Nucleated RBC % 0.0 /100WBC 09/25/18 04:45 PT 12.1 secs (9.9-12.6) 09/22/18 18:43 INR 1.1 (0.8-1.2) 09/22/18 18:43 APTT 28.3 secs (24.9-33.3) 09/22/18 18:43 Sodium 142 mmol/L (135-145) 09/25/18 04:45 Potassium 3.4 mmol/L (3.5-5.0) L 09/25/18 04:45 Chloride 108 mmol/L (101-111) 09/25/18 04:45 Carbon Dioxide 22 mmol/L (21-32) 09/25/18 04:45 Anion Gap 12.0 (6-13) 09/25/18 04:45 BUN 10 mg/dL (6-20) 09/25/18 04:45 Creatinine 0.9 mg/dL (0.4-1.0) 09/25/18 04:45 Estimated GFR (MDRD) 60 (>89) L 09/25/18 04:45 Glucose 123 mg/dL (70-100) H 09/25/18 04:45 Calcium 8.8 mg/dL (8.5-10.3) 09/25/18 04:45 Magnesium 2.4 mg/dL (1.7-2.8) 09/22/18 18:43 Total Bilirubin 0.9 mg/dL (0.2-1.0) 09/22/18 18:43 AST 14 IU/L (10-42) 09/22/18 18:43 ALT 13 IU/L (10-60) 09/22/18 18:43 Alkaline Phosphatase 85 IU/L (42-121) 09/22/18 18:43 Troponin I < 0.04 ng/mL (<0.49) 09/23/18 09:18 Total Protein 6.6 g/dL (6.7-8.2) L 09/22/18 18:43 Albumin 3.6 g/dL (3.2-5.5) 09/22/18 18:43 Globulin 3.0 g/dL (2.1-4.2) 09/22/18 18:43 Albumin/Globulin Ratio 1.2 (1.0-2.2) 09/22/18 18:43 Lipase 17 U/L (22-51) L 09/22/18 18:43 Urine Color YELLOW 09/22/18 20:08 Urine Clarity CLEAR (CLEAR) 09/22/18 20:08 Urine pH 6.5 PH (5.0-7.5) 09/22/18 20:08 Ur Specific [place] <=1.005 (1.002-1.030) 09/22/18 20:08 Urine Protein NEGATIVE mg/dL (NEGATIVE) 09/22/18 20:08 Urine Glucose (UA) NEGATIVE mg/dL (NEGATIVE) 09/22/18 20:08 Urine Ketones NEGATIVE mg/dL (NEGATIVE) 09/22/18 20:08 Urine Occult Blood SMALL (NEGATIVE) H 09/22/18 20:08 Urine Nitrite POSITIVE (NEGATIVE) H 09/22/18 20:08 Urine Bilirubin NEGATIVE (NEGATIVE) 09/22/18 20:08 Urine Urobilinogen 0.2 (NORMAL) E.U./dL (NORMAL) 09/22/18 20:08 Ur Leukocyte Esterase NEGATIVE (NEGATIVE) 09/22/18 20:08 Urine RBC 0-5 /HPF (0-5) 09/22/18 20:08 Urine WBC 0-3 /HPF (0-5) 09/22/18 20:08 Ur Squamous Epith Cells FEW Squamous (<= Few) 09/22/18 20:08 Urine Bacteria Few /HPF (None Seen) 09/22/18 20:08 Ur Microscopic Review INDICATED 09/22/18 20:08 Urine Culture Comments INDICATED 09/22/18 20:08
[2018-09-25] MEDS: D5NS W/20 MEQ KCL 1,000 ML IV SCH (12:04)
[2018-09-25] MEDS: FAMOTIDINE 20 MG/2 ML VIAL IVP SCH (12:11)
[2018-09-25] MEDS ORDERED: LEVALBUTEROL 1.25 MG/3 ML NEB INH PRN (13:00)
[2018-09-25] MEDS: HYDROcod/ACETAM 5/325 MG TABLET PO PRN ×2 (13:55→20:00)
[2018-09-25] MEDS: levoFLOXacin 750 MG/150 ML 750 MG/150 ML BAG IV SCH (14:04)
[2018-09-25] MEDS: SENNA 8.6 MG TABLET PO SCH ×2 (14:13→14:21)
[2018-09-25] MEDS: DOCUSATE SODIUM 250 MG CAPSULE PO SCH (14:13)
[2018-09-25] MEDS: ASPIRIN EC 325 MG TABLET PO SCH ×2 (14:13→14:20)
[2018-09-25] MEDS: POLYETHYLENE GLYCOL 3350 17 GM PACKET PO SCH (14:14)
[2018-09-25] MEDS: guaiFENesin 600 MG TABLET PO SCH ×2 (14:27→21:42)
[2018-09-26] MEDS: D5NS W/20 MEQ KCL 1,000 ML IV SCH ×2 (00:36)
[2018-09-26] MEDS: NITROGLYCERIN 2% PASTE TOP SCH ×3 (01:38→20:33)
[2018-09-26] MEDS: SODIUM CHLORIDE FLUSH 0.9% 10 ML SYRINGE IVP SCH ×4 (01:44→17:03)
[2018-09-26] MEDS: HYDROmorphone 2 MG/ML VIAL IVP PRN (02:13)
[2018-09-26] MEDS: LABETALOL 5 MG/1 ML 20 ML MDV IVP PRN (02:21)
[2018-09-26] MEDS: HYDROcod/ACETAM 5/325 MG TABLET PO PRN (07:50)
--- NOTE | 2018-09-26 08:43 | PROVIDER PROGRESS NOTE ---
Assessment/Plan - Problem List (1) Subcapital fracture of left femur Qualifiers: Encounter type: subsequent encounter Fracture type: closed Fracture healing: with routine healing Qualified Code(s): S72.012D - Unspecified in tracapsular fracture of left femur, subsequent encounter for closed fracture with routine healing Assessment/Plan: Today is POD #3. There were no disruptions with hip pinning found on body imaging, after yesterday's fall in her room. Today will be the first day of physical therapy, since she is alert and can converse and can follow cues today. The plan will be for discharge to a SNF before returning home. (2) Fall during current hospitalization Qualifiers: Encounter type: subsequent encounter Qualified Code(s): W19.XXXD - Unspecified fall, subsequent encounter; Y92.239 - Unspecified place in hospital as the place of occurrence of the external cause Assessment/Plan: There were no disruptions with hip pinning, no fractures or bleeding found on imaging, after yesterday's fall in her room. Will check orthostatic VS. (3) Fall at home Qualifiers: Encounter type: subsequent encounter Qualified Code(s): W19.XXXD - Unspecified fall, subsequent encounter; Y92.009 - Unspecified place in unspecifi ed non-institutional (private) residence as the place of occurrence of the external cause Assessment/Plan: This led to her admission with hip fracture. When she was lucid preop, she reported that she stays in bed most of the time because she is dizzy and that is what makes her fall. Will evaluate for ataxia because of the brain pathology, when she starts PT today. (4) HCAP (healthcare-associated pneumonia) Assessment/Plan: Yesterday's imaging of the thoracic spine revealed that she has a lobar pneumonia. This developed since her hospitalization. Yesterday she was started on Levofloxacin, guaifenesin and nebs to promote pu lmonary toilet, and both Acapella and incentive spirometry were ordered but she cannot follow commands to do the required breathing, even with respiratory therapy teaching her. 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 She has intermittently needed wrist restraints due to agitation, pulling out her [place] and IV. Today her brother was in the room and I spoke to him regarding the patient's past history. The brother was also unaware of any brain tissue removed, he only knew about a brain aneurysm clipping, done in [address] [facility](?). It does not appear that she has had any Neurology follow-up, at least recently, and during visits to Dr. Joel at the orthopedic office, the family told him that the patient is "different". The patient told the staff and providers pre-operatively that she responds poorly to general anesthesia and gets confused, she did not report how long this would last. We witnessed her confusion to be significant and lasting over 2 d ays. Today is postop day #3 and it is the first day that she is able to converse and follow cues. Will order discontinuation of the wrist restraints. Physical therapy to start today. Will also order evaluation with occupational therapy for a Mini-Mental exam and evaluation of ADLs. (6) HTN (hypertension) Qualifiers: Hypertension type: essential hypertension Qualified Code(s): I10 - Essential (primary) hypertension Assessment/Plan: Overnight her blood pressure brijesh as high as 200 systolic. She required the PRN labetalol. She is also on scheduled Nitropaste topically which was started when she was n.p.o. pre-up. She has a history of hypertension for years and was noncompliant with prescribed Amlodipine prior to admission, she told me it was because the Amlodipine drop the pressure too low. Will start Cardizem CD 120 mg daily for blood pressure control since her heart rate is in the 90s and since Amlodipine was not started at admission. The Nitropaste will eventually be weaned to off and alternative used if needed for HTN. (7) Hypokalemia Assessment/Plan: Replace potassium. Follow BMP daily (8) Non-compliance Assessment/Plan: She is on absolutely no medications at the time of admission (except possibly Excedrin, unknown if it was daily). 9Blood pressure control was poor at admission. I suspect the neurologic deficit was adding to her noncompliance. I will request a Social Work consult regarding her safe return to her home, as she needs more assistance than she was getting up till now. (9) CAD (coronary artery disease) Assessment/Plan: She has had no cardiopulmonary complaints since admission. Continue with aspirin. - Current Meds Current Meds: Current Medications Generic Name Dose Route Start Last Admin Trade Name Freq PRN Reason Stop Dose Admin Acetaminophen 650 - 975 mg 09/23/18 17:56 09/24/18 11:41 Tylenol PO 650 mg Q4HR PRN Administration PAIN Hydrocodone Bitart/Acetaminophen 1 tab 09/22/18 20:04 09/26/18 07:50 [place] 5/325 PO 1 tab Q4HR PRN Administration PAIN Aspirin 325 mg 09/25/18 11:00 09/25/18 14:20 Ecotrin PO 325 mg DAILY BRADLEY Administration Docusate Sodium 250 - 500 mg 09/24/18 09:00 09/25/18 14:13 Colace 250mg Capsule PO 250 mg DAILY BRADLEY Administration Famotidine 20 mg 09/23/18 18:53 09/25/18 12:11 Pepcid IVP 20 mg DAILY BRADLEY Administration Guaifenesin 600 mg 09/25/18 14:00 09/25/18 21:42 Mucinex PO Not Given BID BRADLEY Hydromorphone HCl 2 mg 09/23/18 13:51 09/26/18 02:13 Dilaudid (Vial) IVP 2 mg Q2H PRN Administration PAIN Potassium Chloride/Dextrose/Sod Cl 1,000 mls @ 100 mls/hr 09/22/18 20:00 09/26/18 00:36 IV 100 mls/hr .Q10H BRADLEY Administration Acetaminophen 100 mls @ 400 mls/hr 09/23/18 17:56 09/25/18 06:10 Ofirmev IV Infused Q6HR PRN Infusion PAIN Levofloxacin 750 mg in 150 mls @ 100 mls/hr 09/25/18 13:00 09/25/18 17:27 Levaquin 750 Mg/150 Ml IV Infused Q24H BRADLEY Infusion Labetalol HCl 10 mg 09/24/18 11:16 09/26/18 02:21 Trandate Inj IVP 10 mg Q6HR PRN Administration PER PHYSICIAN ORDER Nitroglycerin 0.5 inch 09/23/18 09:04 09/26/18 01:38 Nitro-Bid (Pkt) TOP 0.5 inch Q8H BRADLEY Administration Polyethylene Glycol 17 gm 09/23/18 09:00 09/25/18 14:14 Miralax PO 17 gm DAILY BRADLEY Administration Prochlorperazine Edisylate 10 mg 09/23/18 17:56 09/24/18 22:17 Compazine Inj IVP 10 mg Q6HR PRN Administration Nausea / Vomiting Senna 8.6 - 17.2 mg 09/24/18 09:00 09/25/18 14:21 Senokot PO 8.6 mg DAILY BRADLEY Administration Sodium Chloride 10 ml 09/22/18 19:01 09/25/18 06:14 Normal Saline Flush 0.9% IVP 10 ml PRN PRN Administration NEEDED PER PROVIDER ORDERS Sodium Chloride 10 ml 09/23/18 01:00 09/26/18 01:44 Normal Saline Flush 0.9% IVP Not Given 0100,0900,1700 BRADLEY Sodium Chloride 10 ml 09/24/18 01:00 09/26/18 01:44 Normal Saline Flush 0.9% IVP Not Given 0100,0900,1700 BRADLEY - Lab Result Fish Bone Diagrams: 09/26/18 08:59 09/26/18 08:59 - Additional Planning My Orders: My Active Orders 09/25/18 12:32 Nebulizer/MDI Tx. [RC] .q4prn 09/25/18 13:00 Levalbuterol [Xopenex] 1.25 mg INH RTQ4H PRN levoFLOXacin 750 MG/150 ML [Levaquin 750 mg/150 ml] 750 mg in 150 ml IV Q24H 09/25/18 13:14 CULTURE, BLOOD #1 [RM] Stat 09/25/18 13:43 CULTURE, BLOOD #2 [RM] Stat 09/25/18 14:00 guaiFENesin [Mucinex] 600 mg PO BID 09/25/18 15:44 Restraints [RC] Q24H 09/25/18 15:45 Restraints Safety Check [RC] Q1H Subjective - Subjective Patient Reports: Feeling Better Nursing Reports: Confused, Other (Oriented to self and place and conversant.) Objective Vital Signs: Vital Signs - 24 hr 09/25/18 09/25/18 09/25/18 08:50 09:00 09:40 Temperature 36.4 C L Heart Rate Heart Rate [ 88 91 91 Brachial] Respiratory 18 Rate Blood Pressure 202/114 H 153/106 H 176/122 H [Left Brachial artery] Blood Pressure [Right Brachial artery] O2 Saturation 95 93 09/25/18 09/25/18 09/25/18 10:00 11:44 13:00 Temperature Heart Rate 82 Heart Rate [ 93 80 Brachial] Respiratory 22 16 Rate Blood Pressure 217/112 H 193/86 H [Left Brachial artery] Blood Pressure [Right Brachial artery] O2 Saturation 92 09/25/18 09/25/18 09/25/18 15:11 16:30 19:30 Temperature 36.7 C 36.7 C 36.6 C Heart Rate Heart Rate [ 86 90 101 H Brachial] Respiratory 22 20 20 Rate Blood Pressure 189/107 H 166/114 H 143/114 H [Left Brachial artery] Blood Pressure [Right Brachial artery] O2 Saturation 96 95 97 09/25/18 09/26/18 09/26/18 19:58 00:00 01:45 Temperature 36.6 C Heart Rate Heart Rate [ 105 H 91 87 Brachial] Respiratory 16 Rate Blood Pressure 119/94 H 201/104 H [Left Brachial artery] Blood Pressure 198/119 H [Right Brachial artery] O2 Saturation 93 09/26/18 09/26/18 09/26/18 02:00 02:26 04:15 Temperature 36.7 C Heart Rate Heart Rate [ 99 96 80 Brachial] Respiratory 18 Rate Blood Pressure 222/125 H 186/76 H 149/80 H [Left Brachial artery] Blood Pressure [Right Brachial artery] O2 Saturation 93 Oxygen O2 Source Room air I&O (Last 24 Hrs): Intake and Output Totals x24h 09/24/18 09/25/18 09/26/18 23:59 23:59 23:59 Intake Total 3143.333 1673.333 696.667 Output Total 2575 3725 Balance 568.333 -2051.667 696.667 General: Other (Coversing, oriented to person and place) HEENT: Atraumatic, Mucous membr. moist/pink Neck: Supple Neuro: Alert, Non Focal Cardiovascular: Regular rate, No murmurs Respiratory: No respiratory distress Abdomen: Soft Extremities: No edema - Results Results: Laboratory Results WBC 11.7 x10^3/uL (4.8-10.8) H 09/25/18 04:45 RBC 4.69 10^6/uL (4.20-5.40) 09/25/18 04:45 Hgb 13.9 g/dL (12.0-16.0) 09/25/18 04:45 Hct 44.2 % (37.0-47.0) 09/25/18 04:45 MCV 94.2 fL (81.0-99.0) 09/25/18 04:45 MCH 29.6 pg (27.0-31.0) 09/25/18 04:45 MCHC 31.4 g/dL (32.0-36.0) L 09/25/18 04:45 RDW 14.6 % (12.0-15.0) 09/25/18 04:45 Plt Count 243 10^3/uL (130-450) 09/25/18 04:45 MPV 9.7 fL (7.9-10.8) 09/25/18 04:45 Neut # (Auto) 8.7 10^3/uL (1.5-6.6) H 09/25/18 04:45 Lymph # (Auto) 1.9 10^3/uL (1.5-3.5) 09/25/18 04:45 [place] # (Auto) 0.9 10^3/uL (0.0-1.0) 09/25/18 04:45 Eos # (Auto) 0.1 10^3/uL (0.0-0.7) 09/25/18 04:45 Baso # (Auto) 0.0 10^3/uL (0.0-0.1) 09/25/18 04:45 Absolute Nucleated RBC 0.00 x10^3/uL 09/25/18 04:45 Nucleated RBC % 0.0 /100WBC 09/25/18 04:45 PT 12.1 secs (9.9-12.6) 09/22/18 18:43 INR 1.1 (0.8-1.2) 09/22/18 18:43 APTT 28.3 secs (24.9-33.3) 09/22/18 18:43 Sodium 142 mmol/L (135-145) 09/25/18 04:45 Potassium 3.4 mmol/L (3.5-5.0) L 09/25/18 04:45 Chloride 108 mmol/L (101-111) 09/25/18 04:45 Carbon Dioxide 22 mmol/L (21-32) 09/25/18 04:45 Anion Gap 12.0 (6-13) 09/25/18 04:45 BUN 10 mg/dL (6-20) 09/25/18 04:45 Creatinine 0.9 mg/dL (0.4-1.0) 09/25/18 04:45 Estimated GFR (MDRD) 60 (>89) L 09/25/18 04:45 Glucose 123 mg/dL (70-100) H 09/25/18 04:45 POC Whole Bld Glucose 131 mg/dL (70 - 100) H 09/25/18 09:42 Calcium 8.8 mg/dL (8.5-10.3) 09/25/18 04:45 Magnesium 2.4 mg/dL (1.7-2.8) 09/22/18 18:43 Total Bilirubin 0.9 mg/dL (0.2-1.0) 09/22/18 18:43 AST 14 IU/L (10-42) 09/22/18 18:43 ALT 13 IU/L (10-60) 09/22/18 18:43 Alkaline Phosphatase 85 IU/L (42-121) 09/22/18 18:43 Troponin I < 0.04 ng/mL (<0.49) 09/23/18 09:18 Total Protein 6.6 g/dL (6.7-8.2) L 09/22/18 18:43 Albumin 3.6 g/dL (3.2-5.5) 09/22/18 18:43 Globulin 3.0 g/dL (2.1-4.2) 09/22/18 18:43 Albumin/Globulin Ratio 1.2 (1.0-2.2) 09/22/18 18:43 Lipase 17 U/L (22-51) L 09/22/18 18:43 Urine Color YELLOW 09/22/18 20:08 Urine Clarity CLEAR (CLEAR) 09/22/18 20:08 Urine pH 6.5 PH (5.0-7.5) 09/22/18 20:08 Ur Specific [place] <=1.005 (1.002-1.030) 09/22/18 20:08 Urine Protein NEGATIVE mg/dL (NEGATIVE) 09/22/18 20:08 Urine Glucose (UA) NEGATIVE mg/dL (NEGATIVE) 09/22/18 20:08 Urine Ketones NEGATIVE mg/dL (NEGATIVE) 09/22/18 20:08 Urine Occult Blood SMALL (NEGATIVE) H 09/22/18 20:08 Urine Nitrite POSITIVE (NEGATIVE) H 09/22/18 20:08 Urine Bilirubin NEGATIVE (NEGATIVE) 09/22/18 20:08 Urine Urobilinogen 0.2 (NORMAL) E.U./dL (NORMAL) 09/22/18 20:08 Ur Leukocyte Esterase NEGATIVE (NEGATIVE) 09/22/18 20:08 Urine RBC 0-5 /HPF (0-5) 09/22/18 20:08 Urine WBC 0-3 /HPF (0-5) 09/22/18 20:08 Ur Squamous Epith Cells FEW Squamous (<= Few) 09/22/18 20:08 Urine Bacteria Few /HPF (None Seen) 09/22/18 20:08 Ur Microscopic Review INDICATED 09/22/18 20:08 Urine Culture Comments INDICATED 09/22/18 20:08
[2018-09-26] MEDS: FAMOTIDINE 20 MG/2 ML VIAL IVP SCH (09:01)
[2018-09-26] MEDS: guaiFENesin 600 MG TABLET PO SCH ×3 (09:03→20:33)
[2018-09-26] MEDS: FAMOTIDINE 20 MG TABLET PO SCH ×2 (09:04→20:35)
[2018-09-26] MEDS: ASPIRIN EC 325 MG TABLET PO SCH (09:09)
[2018-09-26] MEDS: SENNA 8.6 MG TABLET PO SCH (09:10)
[2018-09-26] MEDS: DOCUSATE SODIUM 250 MG CAPSULE PO SCH (09:10)
[2018-09-26 09:11] LABS: HGB - HEMOGLOBIN 13.5 g/dL (12.0-16.0); MEAN CORPUSCULAR HEMOGLOBIN 29.4 pg (27.0-31.0); MEAN CORPUSCULAR HGB CONC 31.8 g/dL (32.0-36.0); MEAN CORPUSCULAR VOLUME 92.4 fL (81.0-99.0); MEAN PLATELET VOLUME 9.7 fL (7.9-10.8); RED BLOOD COUNT 4.59 10^6/uL (4.20-5.40); RED CELL DISTRIBUTION WIDTH 14.4 % (12.0-15.0); WHITE BLOOD COUNT 11.9 x10^3/uL (4.8-10.8)
[2018-09-26 09:18] LABS: ALBUMIN 3.1 g/dL (3.2-5.5); ALBUMIN/GLOBULIN RATIO 0.9 (1.0-2.2); BILIRUBIN,TOTAL 1.3 mg/dL (0.2-1.0); CALCIUM 8.1 mg/dL (8.5-10.3); CREATININE 0.9 mg/dL (0.4-1.0); TOTAL PROTEIN 6.4 g/dL (6.7-8.2)
[2018-09-26] MEDS: POLYETHYLENE GLYCOL 3350 17 GM PACKET PO SCH (09:24)
[2018-09-26] MEDS: diltiaZEM CD 120 MG CAPSULE PO SCH (11:32)
[2018-09-26] MEDS: levoFLOXacin 750 MG/150 ML 750 MG/150 ML BAG IV SCH (13:44)
[2018-09-26] MEDS: ACETAMINOPHEN 325 MG TABLET PO PRN ×2 (15:05→19:43)
[2018-09-26] MEDS: NICOTINE 7 MG PATCH TOP SCH (17:03)
[2018-09-26] MEDS: ONDANSETRON 4 MG/2 ML VIAL IVP PRN ×2 (17:03→20:32)
[2018-09-27] MEDS: ACETAMINOPHEN 325 MG TABLET PO PRN ×3 (00:08→10:27)
[2018-09-27] MEDS: SODIUM CHLORIDE FLUSH 0.9% 10 ML SYRINGE IVP SCH ×3 (00:31→17:10)
[2018-09-27] MEDS: LABETALOL 5 MG/1 ML 20 ML MDV IVP PRN ×2 (01:49→09:00)
[2018-09-27] MEDS: KETOROLAC 15 MG/ML VIAL IVP PRN ×2 (01:57→08:34)
[2018-09-27] MEDS: SODIUM CHLORIDE FLUSH 0.9% 10 ML SYRINGE IVP PRN ×2 (01:58→06:03)
[2018-09-27 06:00] LABS: BASOPHILS % (AUTO) 0.3 %; EOSINOPHILS # (AUTO) 0.1 10^3/uL (0.0-0.7); EOSINOPHILS % (AUTO) 0.6 %; HGB - HEMOGLOBIN 12.9 g/dL (12.0-16.0); LYMPHOCYTES # (AUTO) 1.8 10^3/uL (1.5-3.5); MEAN CORPUSCULAR HEMOGLOBIN 30.2 pg (27.0-31.0); MEAN CORPUSCULAR HGB CONC 32.7 g/dL (32.0-36.0); MEAN CORPUSCULAR VOLUME 92.5 fL (81.0-99.0); MEAN PLATELET VOLUME 10.2 fL (7.9-10.8); MONOCYTES # (AUTO) 1.2 10^3/uL (0.0-1.0); NEUTROPHILS # (AUTO) 8.7 10^3/uL (1.5-6.6); NEUTROPHILS % (AUTO) 73.4 %; PLT - PLATELET COUNT 244 10^3/uL (130-450); RED BLOOD COUNT 4.27 10^6/uL (4.20-5.40); RED CELL DISTRIBUTION WIDTH 14.6 % (12.0-15.0); WHITE BLOOD COUNT 11.9 x10^3/uL (4.8-10.8)
[2018-09-27] MEDS: ONDANSETRON 4 MG/2 ML VIAL IVP PRN ×2 (06:03→17:10)
[2018-09-27 06:07] LABS: CALCIUM 8.6 mg/dL (8.5-10.3)
--- NOTE | 2018-09-27 08:47 | PROVIDER PROGRESS NOTE ---
Assessment/Plan - Problem List (1) Subcapital fracture of left femur Qualifiers: Encounter type: subsequent encounter Fracture type: closed Fracture healing: with routine healing Qualified Code(s): S72.012D - Unspecified in tracapsular fracture of left femur, subsequent encounter for closed fracture with routine healing Assessment/Plan: Today is POD #4. Yesterday, on POD #3, was the first day she could start physical therapy, because of her post-op delirium that lasted 24 hours and then the fall in her hospital room on POD #2. The usual post-op pain meds (Morphine, Dilaudid, Oxycodone) were discontinued because of her confusion and inability to follow cues with RNs and PT. Her post-op progress has been delayed due to her cognitive impairment, which has become evident (even off those meds), and is felt to be due to her brain pathology: she had a R temporal lobe removed. (2) Fall during current hospitalization Qualifiers: Encounter type: subsequent encounter Qualified Code(s): W19.XXXD - Unspecified fall, subsequent encounter; Y92.239 - Unspecified place in hospital as the place of occurrence of the external cause Assessment/Plan: She was found out of bed on 09/25/18, laying on her right hip and complaining of pain. Paramedics and a C-collar and backboard were needed. She had extensive CTs and x-rays done that day which showed no fractures and no bleeding. Her C- spine was cleared. She has needed intermittent wrist restraints ordered, due to intermittent confusion and trying to get out of bed alone. Narcotics and other sedatives have been discontinued in order to decrease her confusion. Orthostatic vital sign checks have been ordered every shift, starting yesterday, to treat orthostasis if she has it. Reminding her to call for help for getting out of bed is unsuccessful because of her poor memory. Continue nursing care and bed alarm. (3) Fall at home Qualifiers: Encounter type: subsequent encounter Qualified Code(s): W19.XXXD - Unspecified fall, subsequent encounter; Y92.009 - Unspecified place in unspecified non-institutional (private) residence as the place of occurrence of the external cause Assessment/Plan: At admission, she told the Hospitalist that she "usually stays in bed all day because she is always dizzy and also has a poor gait". She was not followed by a Neurologist. Orthostatic vital sign checks have been ordered every shift, starting yesterday, her first day OOB. (4) HCAP (healthcare-associated pneumonia) Assessment/Plan: The extensive x-raying on 09/25/18, found a lobar pneumonia. She is not coughing or short of breath. She was started on empiric IV antibiotics with Levofloxacin, also guaifenesin and nebulizers. (5) Altered mental status Qualifiers: Altered mental status type: disorientation Qualified Code(s): R41.0 - Di sorientation, unspecified Assessment/Plan: She has had post-op delirium and obvious cognitive impairment (evident even off narcotic meds), and is felt to be due to her brain pathology: she had a R temporal lobe removed. This was found on brain imaging (brain CT was done after her fall in her hospital room on 09/25/18). 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 Her brother and sister have been her only visitors, and I spoke to them, and they were unaware of the temporal lobe removal as well. (6) History of craniotomy Assessment/Plan: Her post-op hip surgery progress has been delayed due to her cognitive impairment, which has become evident (even off sedating meds), and is felt to be due to her brain pathology: she had a R temporal lobe removed. That was noted on brain imaging done 2 days ago. She and the brother were unaware of this. Apparently there is been no Neurology follow-up. This has not yet been confirmed with her who she lives with. She needs a safe discharge location (after SNF presumably), since her cognition is impaired (as an example: she was taking no medications at the time of this admission, despite her neuro and cardiac histories). SW has been made aware of this. (7) HTN (hypertension) Qualifiers: Hypertension type: essential hypertension Qualified Code(s): I10 - Essential (primary) hypertension Assessment/Plan: Patient was prescribed Amlodipine to take at home. She stopped it herself many months before admission and was on no meds except daily Excedrin. BP is still uncontrolled (170-180 systolics). HR is better with Cardizem CD 120 mg daily started yesterday (for HTN with tachycardia). Will add Clonidine 0.1 mg po bid. Depending on her home help (after SNF), she may be a candidate for a Clonidone patch q week. (8) Hypokalemia Assessment/Plan: Related to poor p.o. intake. Replace K po Follow BMP daily (9) CAD (coronary artery disease) Assessment/Plan: Continue daily ASA (10) Tobacco abuse Assessment/Plan: She was started on nicotine patches while here. (11) Non-compliance Assessment/Plan: As discussed above - Current Meds Current Meds: Current Medications Generic Name Dose Route Start Last Admin Trade Name Freq PRN Reason Stop Dose Admin Acetaminophen 650 - 975 mg 09/23/18 17:56 09/27/18 06:01 Tylenol PO 650 mg Q4HR PRN Administration PAIN Aspirin 325 mg 09/25/18 11:00 09/26/18 09:09 Ecotrin PO 325 mg DAILY BRADLEY Administration Diltiazem HCl 120 mg 09/26/18 09:00 09/26/18 11:32 Cardizem Cd PO 120 mg DAILY BRADLEY Administration Docusate Sodium 250 - 500 mg 09/24/18 09:00 09/26/18 09:10 Colace 250mg Capsule PO 250 mg DAILY BRADLEY Administration Famotidine 20 mg 09/26/18 09:00 09/26/18 20:35 Pepcid PO 20 mg BID BRADLEY Administration Guaifenesin 600 mg 09/25/18 14:00 09/26/18 20:33 Mucinex PO 600 mg BID BRADLEY Administration Levofloxacin 750 mg in 150 mls @ 100 mls/hr 09/25/18 13:00 09/26/18 15:41 Levaquin 750 Mg/150 Ml IV Infused Q24H BRADLEY Infusion Ketorolac Tromethamine 15 mg 09/27/18 01:40 09/27/18 01:57 Toradol Inj (15mg) IVP 10/02/18 01:39 15 mg Q6HR PRN Administration PAIN Labetalol HCl 10 mg 09/24/18 11:16 09/27/18 01:49 Trandate Inj IVP 10 mg Q6HR PRN Administration PER PHYSICIAN ORDER Nicotine 1 patch 09/26/18 15:31 09/26/18 17:03 Nicoderm TOP 1 patch DAILY BRADLEY Administration Nitroglycerin 0.5 inch 09/26/18 09:00 09/26/18 20:33 Nitro-Bid (Pkt) TOP 0.5 inch Q12H BRADLEY Administration Ondansetron HCl 4 mg 09/26/18 16:56 09/27/18 06:03 Zofran Inj IVP 4 mg Q6HR PRN Administration Nausea / Vomiting Polyethylene Glycol 17 gm 09/23/18 09:00 09/26/18 09:24 Miralax PO Not Given DAILY BRADLEY Senna 8.6 - 17.2 mg 09/24/18 09:00 09/26/18 09:10 Senokot PO 8.6 mg DAILY BRADLEY Administration Sodium Chloride 10 ml 09/24/18 01:00 09/27/18 00:31 Normal Saline Flush 0.9% IVP 10 ml 0100,0900,1700 BRADLEY Administration Sodium Chloride 10 ml 09/23/18 17:56 09/27/18 06:03 Normal Saline Flush 0.9% IVP 10 ml PRN PRN Administration NEEDED PER PROVIDER ORDERS - Lab Result Fish Bone Diagrams: 09/27/18 05:36 09/27/18 05:36 - Additional Planning My Orders: My Active Orders 09/26/18 09:00 Famotidine [Pepcid] 20 mg PO BID Nitroglycerin 2% Paste (Pkt) [Nitro-Bid (Pkt)] 0.5 inch TOP Q12H [id number] CD [Cardizem Cd] 120 mg PO DAILY 09/26/18 13:09 Postural [Vital Signs - Orthostatic] [RC] QSHIFT 09/26/18 15:31 Nicotine 7 mg Patch [Nicoderm] 1 patch TOP DAILY 09/26/18 16:56 Ondansetron Inj [Zofran Inj] 4 mg IVP Q6HR PRN 09/27/18 07:34 Telemetry-Discontinue [RC] .ONCE 09/27/18 09:00 cloNIDine [Catapres] 0.1 mg PO BID 09/28/18 05:00 BMP - BASIC METABOLIC PANEL [CHEM] DAILYLAB CBC - COMP BLD CT W/AUTO DIFF [HEME] DAILYLAB 09/29/18 05:00 BMP - BASIC METABOLIC PANEL [CHEM] DAILYLAB CBC - COMP BLD CT W/AUTO DIFF [HEME] DAILYLAB Subjective - Subjective Patient Reports: No Complaints Nursing Reports: Other (She remembered my name and where she is. She forgets which hip had the surgery.) Objective Vital Signs: Vital Signs - 24 hr 09/26/18 09/26/18 09/26/18 09:00 10:14 13:54 Temperature 36.6 C 36.6 C Heart Rate 81 Heart Rate [ 84 93 Brachial] Respiratory 17 16 17 Rate Blood Pressure 170/100 H 144/84 H [Left Brachial artery] Blood Pressure [Right Brachial artery] O2 Saturation 92 93 09/26/18 09/26/18 09/26/18 16:35 19:05 21:00 Temperature 36.7 C 37.2 C Heart Rate 93 Heart Rate [ 93 82 Brachial] Respiratory 18 18 16 Rate Blood Pressure [Left Brachial artery] Blood Pressure 149/86 H 184/94 H [Right Brachial artery] O2 Saturation 93 94 09/26/18 09/27/18 09/27/18 22:46 00:00 01:10 Temperature 36.6 C Heart Rate Heart Rate [ 86 91 Brachial] Respiratory 16 Rate Blood Pressure 194/104 H 180/110 H [Left Brachial artery] Blood Pressure 155/99 H [Right Brachial artery] O2 Saturation 09/27/18 09/27/18 09/27/18 01:49 02:04 06:00 Temperature 36.8 C 36.4 C L Heart Rate Heart Rate [ 79 81 Brachial] Respiratory 16 16 Rate Blood Pressure 186/103 H 141/108 H 179/98 H [Left Brachial artery] Blood Pressure [Right Brachial artery] O2 Saturation 93 93 09/27/18 08:09 Temperature 36.4 C L Heart Rate Heart Rate [ 77 Brachial] Respiratory 16 Rate Blood Pressure 184/99 H [Left Brachial artery] Blood Pressure [Right Brachial artery] O2 Saturation 97 Oxygen O2 Source Room air I&O (Last 24 Hrs): Intake and Output Totals x24h 09/25/18 09/26/18 09/27/18 23:59 23:59 23:59 Intake Total 5040.757 2575.667 Output Total 3868 500 Balance -2051.667 2646.667 -500 General: Alert HEENT: Mucous membr. moist/pink, Other (Appears disheveled) Neck: Supple, No JVD Neuro: Non Focal, Other (Poor memory) Cardiovascular: No murmurs Respiratory: No respiratory distress Abdomen: Soft Extremities: No edema - Results Results: Laboratory Results WBC 11.9 x10^3/uL (4.8-10.8) H 09/27/18 05:36 RBC 4.27 10^6/uL (4.20-5.40) 09/27/18 05:36 Hgb 12.9 g/dL (12.0-16.0) 09/27/18 05:36 Hct 39.5 % (37.0-47.0) 09/27/18 05:36 MCV 92.5 fL (81.0-99.0) 09/27/18 05:36 MCH 30.2 pg (27.0-31.0) 09/27/18 05:36 MCHC 32.7 g/dL (32.0-36.0) 09/27/18 05:36 RDW 14.6 % (12.0-15.0) 09/27/18 05:36 Plt Count 244 10^3/uL (130-450) 09/27/18 05:36 MPV 10.2 fL (7.9-10.8) 09/27/18 05:36 Neut # (Auto) 8.7 10^3/uL (1.5-6.6) H 09/27/18 05:36 Lymph # (Auto) 1.8 10^3/uL (1.5-3.5) 09/27/18 05:36 [place] # (Auto) 1.2 10^3/uL (0.0-1.0) H 09/27/18 05:36 Eos # (Auto) 0.1 10^3/uL (0.0-0.7) 09/27/18 05:36 Baso # (Auto) 0.0 10^3/uL (0.0-0.1) 09/27/18 05:36 Absolute Nucleated RBC 0.00 x10^3/uL 09/27/18 05:36 Nucleated RBC % 0.0 /100WBC 09/27/18 05:36 PT 12.1 secs (9.9-12.6) 09/22/18 18:43 INR 1.1 (0.8-1.2) 09/22/18 18:43 APTT 28.3 secs (24.9-33.3) 09/22/18 18:43 Sodium 143 mmol/L (135-145) 09/27/18 05:36 Potassium 3.4 mmol/L (3.5-5.0) L 09/27/18 05:36 Chloride 111 mmol/L (101-111) 09/27/18 05:36 Carbon Dioxide 19 mmol/L (21-32) L 09/27/18 05:36 Anion Gap 13.0 (6-13) 09/27/18 05:36 BUN 14 mg/dL (6-20) 09/27/18 05:36 Creatinine 1.0 mg/dL (0.4-1.0) 09/27/18 05:36 Estimated GFR (MDRD) 53 (>89) L 09/27/18 05:36 Glucose 112 mg/dL (70-100) H 09/27/18 05:36 POC Whole Bld Glucose 131 mg/dL (70 - 100) H 09/25/18 09:42 Calcium 8.6 mg/dL (8.5-10.3) 09/27/18 05:36 Magnesium 2.4 mg/dL (1.7-2.8) 09/22/18 18:43 Total Bilirubin 1.3 mg/dL (0.2-1.0) H 09/26/18 08:59 AST 18 IU/L (10-42) 09/26/18 08:59 ALT 13 IU/L (10-60) 09/26/18 08:59 Alkaline Phosphatase 73 IU/L (42-121) 09/26/18 08:59 Troponin I < 0.04 ng/mL (<0.49) 09/23/18 09:18 Total Protein 6.4 g/dL (6.7-8.2) L 09/26/18 08:59 Albumin 3.1 g/dL (3.2-5.5) L 09/26/18 08:59 Globulin 3.3 g/dL (2.1-4.2) 09/26/18 08:59 Albumin/Globulin Ratio 0.9 (1.0-2.2) L 09/26/18 08:59 Lipase 17 U/L (22-51) L 09/22/18 18:43 Urine Color YELLOW 09/22/18 20:08 Urine Clarity CLEAR (CLEAR) 09/22/18 20:08 Urine pH 6.5 PH (5.0-7.5) 09/22/18 20:08 Ur Specific [place] <=1.005 (1.002-1.030) 09/22/18 20:08 Urine Protein NEGATIVE mg/dL (NEGATIVE) 09/22/18 20:08 Urine Glucose (UA) NEGATIVE mg/dL (NEGATIVE) 09/22/18 20:08 Urine Ketones NEGATIVE mg/dL (NEGATIVE) 09/22/18 20:08 Urine Occult Blood SMALL (NEGATIVE) H 09/22/18 20:08 Urine Nitrite POSITIVE (NEGATIVE) H 09/22/18 20:08 Urine Bilirubin NEGATIVE (NEGATIVE) 09/22/18 20:08 Urine Urobilinogen 0.2 (NORMAL) E.U./dL (NORMAL) 09/22/18 20:08 Ur Leukocyte Esterase NEGATIVE (NEGATIVE) 09/22/18 20:08 Urine RBC 0-5 /HPF (0-5) 09/22/18 20:08 Urine WBC 0-3 /HPF (0-5) 09/22/18 20:08 Ur Squamous Epith Cells FEW Squamous (<= Few) 09/22/18 20:08 Urine Bacteria Few /HPF (None Seen) 09/22/18 20:08 Ur Microscopic Review INDICATED 09/22/18 20:08 Urine Culture Comments INDICATED 09/22/18 20:08
[2018-09-27] MEDS: POLYETHYLENE GLYCOL 3350 17 GM PACKET PO SCH (08:51)
[2018-09-27] MEDS: NICOTINE 7 MG PATCH TOP SCH (08:53)
[2018-09-27] MEDS: NITROGLYCERIN 2% PASTE TOP SCH (08:53)
[2018-09-27] MEDS: ASPIRIN EC 325 MG TABLET PO SCH (08:53)
[2018-09-27] MEDS: diltiaZEM CD 120 MG CAPSULE PO SCH (08:54)
[2018-09-27] MEDS: DOCUSATE SODIUM 250 MG CAPSULE PO SCH (08:54)
[2018-09-27] MEDS: FAMOTIDINE 20 MG TABLET PO SCH ×2 (08:55→21:15)
[2018-09-27] MEDS: SENNA 8.6 MG TABLET PO SCH (08:55)
[2018-09-27] MEDS: guaiFENesin 600 MG TABLET PO SCH ×2 (08:55→21:15)
[2018-09-27] MEDS: cloNIDine 0.1 MG TABLET PO SCH ×2 (09:16→21:15)
[2018-09-27] MEDS: ACETAMINOPHEN 500 MG TABLET PO SCH ×3 (11:58→23:38)
[2018-09-27] MEDS: IBUPROFEN 800 MG TABLET PO SCH ×2 (12:32→16:32)
[2018-09-27] MEDS: levoFLOXacin 750 MG/150 ML 750 MG/150 ML BAG IV SCH (13:15)
--- NOTE | 2018-09-27 16:02 | ADVANCE CARE PLANNING NOTE ---
Advance Care Planning - Date/Time Date: 09/27/18 Time: 14:00 - Purpose of encounter Text: To establish code status - Parties in attendance Parties in attendance: I spoke to the patient in her bed, in the room were her of 47 years and their 4th child, daughter Brisa - Decisional capacity Decisional capacity of: She has intermittent delirium, noted on this admission. She has been having poor short-term memory for 1-2 years, per the family. Therefore, she has some incite only intermittently. 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 She is to her current for 47 years and they have 5 children together. The fourth child, Veronica, is in the room currently. The does not remember ever being told that the patient needed a lobectomy of her temporal lobe of her brain when she had the intracranial hemorrhage in 2005. Patient and the both rthought that she needed a clip placed for a brain aneurysm. She had nearly no Neurology follow-up after recovering from that surgery. She has been followed by Sofya Hollis NP as her PCP. The last visit to her was over a year ago. The would drive her to the appointments but never go into the exam room with her. The patient would not comply with going to test that were ordered. There had been a prescription for Amlodipine but the patient took this for a while and stopped it herself because she thought that she measured a low blood pressure on herself. The states that the patient never did blood pressure measurements on herself at home. The and daughter both describe that the patient started to have poor short-term memory, unsteadiness with walking and describe dizziness over the past 2 years and therefore "mostly stayed in bed". She was able to get up for bathroom and eating and occasionally but rarely makes meals. She mostly watches TV all day .Over those 2 years, she has had no Neurology evaluation for worsening memory and gait and recurrent falls. She admits however that she did not tell Sofya Hollis NP about any of these symptoms. This was the first fall at home that resulted in significant trauma and hospitalization. Preoperatively, the patient reported to me that she gets "very confused after general anesthesia". The reported that when she had CABG, 3 years after the craniotomy, she was in serious condition then. She only took her cardiac medications for a year or 2 after the surgery and then refused any more pills. - Objective/Medical story Objective/Medical Story: This is a 78-year-old white female with a history of smoking, CABG, craniotomy, brain hemorrhage. She rarely gets out of bed, but described being out of bed reaching for something and fell onto her hip. She was brought in and found to have a hip fracture. She was taken to surgery and had successful pinning of the hip. Subsequently she has had delirium, confusion, agitation, has required intermittent restraints, was found on the floor of her bed after an unwitnessed fall, no fractures or bleeding were found, and she has only been oriented to person and place this whole admission. She cannot remember which hip had a fracture and the surgery. She just started PT yesterday, and today she took 10 steps. She and the and daughter agree that she will need a SNF for short period of time before going home. She and the and daughter also agree that she needs supervision at home, because of her poor memory and would agree to home health Intermediate and PT. - Goals of Care Goals of care determinations: Patient stated emphatically that she does not want to be kept alive in a vegetative state and wants a Do Not Resuscitate status. Then the daughter reminded her that the patient would want to be kept alive until all family members are present to "say goodbye". Patient therefore said she would like to be a full code. - Plan Plan: Remain a full code. Increased caregivers at home to monitor compliance with taking medications, blood pressure checks, physical therapy. - Code Status Code Status: Attempt Resuscitation - Time Spent on Advance Care Planning Time spent on advance care plannin min
[2018-09-28] MEDS: ACETAMINOPHEN 500 MG TABLET PO SCH ×3 (05:42→17:29)
[2018-09-28] MEDS: SODIUM CHLORIDE FLUSH 0.9% 10 ML SYRINGE IVP SCH ×3 (05:43→16:16)
[2018-09-28] MEDS: FAMOTIDINE 20 MG TABLET PO SCH ×2 (08:24→20:27)
[2018-09-28] MEDS: IBUPROFEN 800 MG TABLET PO SCH ×2 (08:24→16:10)
[2018-09-28] MEDS: cloNIDine 0.1 MG TABLET PO SCH ×2 (08:24→20:28)
[2018-09-28] MEDS: guaiFENesin 600 MG TABLET PO SCH ×2 (08:24→20:30)
[2018-09-28] MEDS: ASPIRIN EC 325 MG TABLET PO SCH (08:24)
[2018-09-28] MEDS: diltiaZEM CD 120 MG CAPSULE PO SCH (08:24)
[2018-09-28] MEDS: ONDANSETRON 4 MG/2 ML VIAL IVP PRN (08:25)
[2018-09-28] MEDS: NICOTINE 7 MG PATCH TOP SCH (08:34)
[2018-09-28] MEDS: DOCUSATE SODIUM 250 MG CAPSULE PO SCH (08:34)
[2018-09-28] MEDS: POLYETHYLENE GLYCOL 3350 17 GM PACKET PO SCH (08:35)
[2018-09-28] MEDS: SENNA 8.6 MG TABLET PO SCH (08:35)
[2018-09-28 10:13] LABS: CALCIUM 8.5 mg/dL (8.5-10.3); CREATININE 1.1 mg/dL (0.4-1.0)
[2018-09-28 10:42] LABS: BASOPHILS # (AUTO) 0.1 10^3/uL (0.0-0.1); BASOPHILS % (AUTO) 0.5 %; EOSINOPHILS # (AUTO) 0.1 10^3/uL (0.0-0.7); EOSINOPHILS % (AUTO) 0.9 %; HGB - HEMOGLOBIN 13.8 g/dL (12.0-16.0); LYMPHOCYTES # (AUTO) 2.2 10^3/uL (1.5-3.5); LYMPHOCYTES % (AUTO) 19.2 %; MEAN CORPUSCULAR HEMOGLOBIN 29.7 pg (27.0-31.0); MEAN CORPUSCULAR HGB CONC 32.2 g/dL (32.0-36.0); MEAN CORPUSCULAR VOLUME 92.5 fL (81.0-99.0); MEAN PLATELET VOLUME 9.8 fL (7.9-10.8); MONOCYTES # (AUTO) 0.9 10^3/uL (0.0-1.0); MONOCYTES % (AUTO) 7.9 %; NEUTROPHILS # (AUTO) 8.1 10^3/uL (1.5-6.6); NEUTROPHILS % (AUTO) 70.8 %; PLT - PLATELET COUNT 271 10^3/uL (130-450); RED BLOOD COUNT 4.64 10^6/uL (4.20-5.40); RED CELL DISTRIBUTION WIDTH 14.3 % (12.0-15.0); WHITE BLOOD COUNT 11.4 x10^3/uL (4.8-10.8)
[2018-09-28] MEDS: levoFLOXacin 750 MG/150 ML 750 MG/150 ML BAG IV SCH (12:51)
[2018-09-28] MEDS: SODIUM CHLORIDE FLUSH 0.9% 10 ML SYRINGE IVP PRN (12:52)
--- NOTE | 2018-09-28 15:36 | PROVIDER PROGRESS NOTE ---
Subjective - Prog Note Date Prog Note Date: 09/28/18 Prog Note Time: 15:36 - Subjective Subjective: This morning she said that more than anything she was nauseated. Pain was controlled. This afternoon she says pain was a problem and she does not remember being nauseated this morning. Otherwise she denies chest pain. No new bowel complaints. Mental status is stable from yesterday according to RN. Today's the first time taking care of her. Current Medications - Current Medications Current Medications: Active Medications Acetaminophen (Tylenol) 500 mg PO Q6HR [facility] Last Admin: 09/28/18 12:45 Dose: 500 mg Aspirin (Ecotrin) 325 mg PO DAILY [facility] Last Admin: 09/28/18 08:24 Dose: 325 mg Clonidine HCl (Catapres) 0.1 mg PO BID [facility] Last Admin: 09/28/18 08:24 Dose: 0.1 mg Diltiazem HCl (Cardizem Cd) 120 mg PO DAILY [facility] Last Admin: 09/28/18 08:24 Dose: 120 mg Docusate Sodium (Colace 250mg Capsule) 250 - 500 mg PO DAILY [facility] Last Admin: 09/28/18 08:34 Dose: Not Given Famotidine (Pepcid) 20 mg PO BID [facility] Last Admin: 09/28/18 08:24 Dose: 20 mg Guaifenesin (Mucinex) 600 mg PO BID [facility] Last Admin: 09/28/18 08:24 Dose: 600 mg Levofloxacin (Levaquin 750 Mg/150 Ml) 750 mg in 150 mls @ 100 mls/hr IV Q24H [facility] Last Infusion: 09/28/18 14:43 Dose: Infused Ibuprofen (Motrin) 800 mg PO 0800,1700 [facility] Last Admin: 09/28/18 08:24 Dose: 800 mg Levalbuterol HCl (Xopenex) 1.25 mg INH RTQ4H PRN PRN Reason: SHORTNESS OF AIR/WHEEZING Nicotine (Nicoderm) 1 patch TOP DAILY [facility] Last Admin: 09/28/18 08:34 Dose: 1 patch Ondansetron HCl (Zofran Inj) 4 mg IVP Q6HR PRN PRN Reason: Nausea / Vomiting Last Admin: 09/28/18 08:25 Dose: 4 mg Polyethylene Glycol (Miralax) 17 gm PO DAILY [facility] Last Admin: 09/28/18 08:35 Dose: Not Given Potassium Chloride (K-Dur) 20 meq PO Q4H [facility] Stop: 09/29/18 04:01 Senna (Senokot) 8.6 - 17.2 mg PO DAILY [facility] Last Admin: 09/28/18 08:35 Dose: Not Given Sodium Chloride (Normal Saline Flush 0.9%) 10 ml IVP 0100,0900,1700 [facility] Last Admin: 09/28/18 08:25 Dose: 10 ml Sodium Chloride (Normal Saline Flush 0.9%) 10 ml IVP PRN PRN PRN Reason: NEEDED PER PROVIDER ORDERS Last Admin: 09/28/18 12:52 Dose: 10 ml No Known Home Medications 09/24/18 Objective - Vital Signs/Intake & Output Reviewed Vital Signs: Yes Vital Signs: Vital Signs x48h Temp Pulse Pulse Pulse Pulse Resp BP 09/28/18 10:11 77 96 83 09/28/18 07:55 36.6 C 71 20 191/98 H BP BP BP Pulse Ox 09/28/18 10:11 145/86 H 134/82 H 151/71 H 09/28/18 07:55 96 Intake & Output: Intake & Output 09/25/18 09/26/18 09/27/18 09/28/18 23:59 23:59 23:59 23:59 Intake Total 9734.924 7936.667 460 270 Output Total 3725 1200 Balance -2051.667 2646.667 -740 270 - Objective General Appearance: positive: No acute distress, Alert, Mild distress (From nausea) Eyes Bilateral: positive: PERRL, EOMI ENT: positive: Pharynx nml Neck: positive: No JVD Respiratory: positive: Chest non-tender. negative: Wheezes, Rales, Rhonchi Cardiovascular: positive: Regular rate & rhythm. negative: Gallop/S4, Friction rub Abdomen: positive: Non-tender, No organomegaly, Nml bowel sounds, No distention Neurologic/Psychiatric: positive: CN's nml (2-12), Disoriented to time. negative: Mood/affect nml (anxious , fretful) - Lab Results Fish Bones: 09/28/18 09:50 09/28/18 09:50 Other Labs: Lab Results x24hrs 09/28/18 09/28/18 Range/Units 09:50 09:50 WBC 11.4 H (4.8-10.8) x10^3/uL RBC 4.64 (4.20-5.40) 10^6/uL Hgb 13.8 (12.0-16.0) g/dL Hct 42.9 (37.0-47.0) % MCV 92.5 (81.0-99.0) fL MCH 29.7 (27.0-31.0) pg MCHC 32.2 (32.0-36.0) g/dL RDW 14.3 (12.0-15.0) % Plt Count 271 (130-450) 10^3/uL MPV 9.8 (7.9-10.8) fL Neut # (Auto) 8.1 H (1.5-6.6) 10^3/uL Lymph # (Auto) 2.2 (1.5-3.5) 10^3/uL Tyler # (Auto) 0.9 (0.0-1.0) 10^3/uL Eos # (Auto) 0.1 (0.0-0.7) 10^3/uL Baso # (Auto) 0.1 (0.0-0.1) 10^3/uL Absolute Nucleated RBC 0.00 x10^3/uL Nucleated RBC % 0.0 /100WBC Sodium 136 (135-145) mmol/L Potassium 3.0 L (3.5-5.0) mmol/L Chloride 105 (101-111) mmol/L Carbon Dioxide 19 L (21-32) mmol/L Anion Gap 12.0 (6-13) BUN 17 (6-20) mg/dL Creatinine 1.1 H (0.4-1.0) mg/dL Estimated GFR (MDRD) 48 L (>89) Glucose 136 H (70-100) mg/dL Calcium 8.5 (8.5-10.3) mg/dL ABX Reporting Has patient been on IV antibiotics over the past 48 hours?: No Assessment/Plan - Problem List (1) Delirium Impression: She has had post-op delirium and obvious cognitive impairment (evident even off narcotic meds), and is felt to be due to her brain pathology: she had a R temporal lobe removed. This was found on brain imaging (brain CT was done after her fall in her hospital room on 09/25/18). 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 We had to delay her discharge until we investigated her memory loss and delirium completely. She has a History of craniotomy. Cognitive impairment has been present even before admission but worsened (even off sedating meds) Apparently there is been no Neurology follow-up. (2) Subcapital fracture of left femur Qualifiers: Encounter type: subsequent encounter Fracture type: closed Fracture healing: with routine healing Qualified Code(s): S72.012D - Unspecified intracapsular fracture of left femur, subsequent encounter for closed fracture with routine healing Assessment/Plan: Today is POD #5.To go to SNF in am. Pain varies depending on who she speaks to. Did well with PT today. POD #3 was the first day she could start physical therapy, because of her post- op delirium that lasted 24 hours Fall in her hospital room on POD #2. The usual post-op pain meds (Morphine, Dilaudid, Oxycodone) were discontinued because of her confusion and inability to follow cues with RNs and PT. Her post-op progress has been delayed due to her cognitive impairment, which has become evident (even off those meds), and is felt to be due to her brain pathology: she had a R temporal lobe removed. (3) Fall during current hospitalization Qualifiers: Encounter type: subsequent encounter Qualified Code(s): W19.XXXD - Unspecified fall, subsequent encounter; Y92.239 - Unspecified place in hospital as the place of occurrence of the external cause Assessment/Plan: She was found out of bed on 09/25/18, laying on her right hip and complaining of pain. Paramedics and a C-collar and backboard were needed. She had extensive CTs and x-rays done that day which showed no fractures and no bleeding. Her C- spine was cleared. She has needed intermittent wrist restraints ordered, due to intermittent confusion and trying to get out of bed alone. Narcotics and other sedatives have been discontinued in order to decrease her confusion. Orthostatic vital sign checks have been ordered every shift, starting yesterday, to treat orthostasis if she has it. Reminding her to call for help for getting out of bed is unsuccessful because of her poor memory. Continue nursing care and bed alarm. (4) Fall at home Qualifiers: Encounter type: subsequent encounter Qualified Code(s): W19.XXXD - Unspecified fall, subsequent encounter; Y92.009 - Unspecified place in unspecified non-institutional (private) residence as the place of occurrence of the external cause Assessment/Plan: At admission, she told the Hospitalist that she "usually stays in bed all day because she is always dizzy and also has a poor gait". She was not followed by a Neurologist. Orthostatic vital sign checks have been ordered every shift, starting yesterday, her first day OOB. Orthostatic changes are not severe. (5) HCAP (healthcare-associated pneumonia) Assessment/Plan: The extensive x-raying on 09/25/18, found a lobar pneumonia. She is not coughing or short of breath. She was started on empiric IV antibiotics with Levofloxacin, also guaifenesin and nebulizers. Today Day #4. (6) HTN (hypertension) Qualifiers: Hypertension type: essential hypertension Qualified Code(s): I10 - Essential (primary) hypertension Assessment/Plan: Patient was prescribed Amlodipine to take at home. She stopped it herself many months before admission and was on no meds except daily Excedrin. BP was still uncontrolled (170-180 systolics). HR is better with Cardizem CD 120 mg daily started 09/26 (for HTN with tachycardia). Added Clonidine 0.1 mg po bid. Selected Entries 09/28/18 09/28/18 00:07 10:11 Blood Pressure 182/103 H 145/86 H [Sitting (After 1 Minute)] Blood Pressure 145/100 H 134/82 H [Standing ( After 1 Minute) ] Blood Pressure 165/85 H 151/71 H [Supine] Depending on her home help (after SNF), she may be a candidate for a Clonidone patch q week. For today, no change. (7) Hypokalemia Assessment/Plan: Replace K po with 20 meq q4 h for 4 doses Follow BMP daily (9) CAD (coronary artery disease) Assessment/Plan: Continue daily ASA (10) Tobacco abuse Assessment/Plan: She was started on nicotine patches while here. (11) Non-compliance Assessment/Plan: As discussed above
[2018-09-28] MEDS: POTASSIUM CHLORIDE 20 MEQ TABLET PO SCH ×2 (16:08→19:51)
[2018-09-29] MEDS: POTASSIUM CHLORIDE 20 MEQ TABLET PO SCH ×2 (00:09→04:38)
[2018-09-29] MEDS: ACETAMINOPHEN 500 MG TABLET PO SCH ×3 (00:09→12:08)
[2018-09-29] MEDS: SODIUM CHLORIDE FLUSH 0.9% 10 ML SYRINGE IVP SCH ×2 (00:10→08:08)
[2018-09-29 05:30] LABS: BASOPHILS # (AUTO) 0.1 10^3/uL (0.0-0.1); BASOPHILS % (AUTO) 0.5 %; EOSINOPHILS # (AUTO) 0.1 10^3/uL (0.0-0.7); EOSINOPHILS % (AUTO) 1.2 %; HGB - HEMOGLOBIN 13.2 g/dL (12.0-16.0); LYMPHOCYTES # (AUTO) 2.3 10^3/uL (1.5-3.5); LYMPHOCYTES % (AUTO) 23.2 %; MEAN CORPUSCULAR HEMOGLOBIN 29.9 pg (27.0-31.0); MEAN CORPUSCULAR HGB CONC 32.5 g/dL (32.0-36.0); MEAN CORPUSCULAR VOLUME 92.1 fL (81.0-99.0); MEAN PLATELET VOLUME 9.6 fL (7.9-10.8); MONOCYTES # (AUTO) 1.2 10^3/uL (0.0-1.0); NEUTROPHILS # (AUTO) 6.1 10^3/uL (1.5-6.6); NEUTROPHILS % (AUTO) 62.3 %; PLT - PLATELET COUNT 281 10^3/uL (130-450); RED BLOOD COUNT 4.41 10^6/uL (4.20-5.40); RED CELL DISTRIBUTION WIDTH 14.5 % (12.0-15.0); WHITE BLOOD COUNT 9.8 x10^3/uL (4.8-10.8)
[2018-09-29 05:37] LABS: CALCIUM 8.6 mg/dL (8.5-10.3); CREATININE 1.1 mg/dL (0.4-1.0)
[2018-09-29] MEDS: cloNIDine 0.1 MG TABLET PO SCH (06:33)
[2018-09-29] MEDS: IBUPROFEN 800 MG TABLET PO SCH (08:04)
[2018-09-29] MEDS: guaiFENesin 600 MG TABLET PO SCH (08:04)
[2018-09-29] MEDS: SENNA 8.6 MG TABLET PO SCH (08:04)
[2018-09-29] MEDS: NICOTINE 7 MG PATCH TOP SCH (08:05)
[2018-09-29] MEDS: diltiaZEM CD 120 MG CAPSULE PO SCH (08:05)
[2018-09-29] MEDS: FAMOTIDINE 20 MG TABLET PO SCH (08:05)
[2018-09-29] MEDS: DOCUSATE SODIUM 250 MG CAPSULE PO SCH (08:05)
[2018-09-29] MEDS: ASPIRIN EC 325 MG TABLET PO SCH (08:05)
[2018-09-29] MEDS: POLYETHYLENE GLYCOL 3350 17 GM PACKET PO SCH (08:05)
--- NOTE | 2018-09-29 10:46 | Discharge Plan ---
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 Subcapital fracture of left femur after fall at home 09/21/18, s/p left miniopening hip pinning 09/23/18 2. 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 Postoperative delirium resolved 4. Fall during recent hospitalization with no sequela 5. Healthcare associated pneumonia on Levaquin. Needs to complete 5 more days on October 05 7. Hypertension 8. Coronary artery disease history, status post bypass surgery, stable 9. Ongoing tobacco abuse. Patient on nicotine patches while in hospital 10. Hypokalemia needing supplementation and recheck 11. Type 2 diabetes mellitus, controlled, not requiring insulin, a new diagnosis Medicare Certification Statement: I certify that Post Hospital fdc care is medically necessary on a continuing basis for any of the conditions for which she/he is receiving care during hospitalization. Notify PCP of admission and forward orders to primary provider for signature. Weight on admission and: Weekly Other Notification Orders: Call PCP immediately if patient develops dyspnea, chest pain/tightness or edema. House Bowel Program: Yes Additional Bowel Program Orders: If no BM after 2 days, nurse may give M.O.M. 30ml PO PRN and/or ducolax Supp 1 IL and/or BRITTANY 250mg P.O., and/or senna 1-2 tabs PO. On day 3 nurse may give repeat above order until residents constipation is resolved. Annual Influenza Vaccine (between Dec 07 and July 06): Yes Two-step PPD per WAC [id number] or approved exception documents: Yes Lab Tests or X-ray Orders: CBC and BMP on 10/06/18 Medication Orders: PLEASE REFER TO THE DISCHARGE MEDICATION LIST. Insulin Orders?: No - Medications New Prescriptions: Levofloxacin [Levaquin] 500 mg PO DAILY #7 tablet - Diet Type: Geriatric Texture: Regular Liquids: Thin May have monthly special meal: Yes - Therapies | Activity Therapy: Evaluation | Treat if indicated: PT, OT Rehabilitation Potential: Maximize functional status Activity: Activity as Tolerated Weight Bearing: Toe Touch Extremities: TTWBLLE Assistance Devices: Walker Additional Instructions: Dr. Joel recommends continued DVT prophylaxis mechanical and chemical. Analgesics as necessary. Recommend formal physical therapy and a home program even at the fdc facility. She should ambulate with assistance and assistive device. Toe-touch weightbearing left lower extremity. Patient should follow-up 10 to 14 days (10/03-10/07) orthopedic clinic or sooner on an as-needed basis. Expect to remove april at that time. Follow Up: Please see Dr. Joel as above and please see primary care provider after discharge."
[2018-09-29 11:33] LABS: HB2 TOTAL 14.1 g/dL; HEMOGLOBIN A1C 0.55 g/dL; HEMOGLOBIN A1C % 5.7 % (4.6-6.2)
[2018-09-29] MEDS: levoFLOXacin 750 MG/150 ML 750 MG/150 ML BAG IV SCH (14:15)
[2018-09-29] MEDS: SODIUM CHLORIDE FLUSH 0.9% 10 ML SYRINGE IVP PRN (14:16)
[2018-09-29 15:17] VITALS: BP 147/95
--- NOTE | 2018-10-06 17:55 | DISCHARGE SUMMARY ---
Physician: Luzma Wright MD DATE OF ADMISSION: 09/22/2018 DATE OF DISCHARGE: 09/29/2018 DISCHARGE DIAGNOSES 1. Subcapital fracture of the left femur. 2. Fall at home. 3. 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 4. Postoperative delirium. 5. Fall during hospitalization. 6. Healthcare-associated pneumonia. 7. Hypertension. 8. Coronary artery disease, status post bypass surgery. 9. Ongoing tobacco abuse. 10. Hypokalemia. 11. Type 2 diabetes mellitus, controlled, not requiring insulin, which may be a new diagnosis. 12. Osteoporosis. MEDICATIONS 1. Tylenol 650 mg every 6 hours as needed. 2. Aspirin 325 mg a day. 3. [place] 5/325 one tablet every 6 hours as needed. 4. Xopenex 0.63 via inhalation machine every 6 hours as needed. 5. Nicotine patch 7 mg daily. 6. Clonidine 0.1 mg p.o. b.i.d. 7. Diltiazem CD 120 mg p.o. daily. 8. Motrin 800 mg p.o. b.i.d. for pain. 9. Levaquin 500 mg p.o. daily for 7 more days. HOSPITAL COURSE: She is a 78-year-old female who has already been having right hip pain and has been seeing Orthopedics for it. 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 She fell yesterday, the day before admission in the early afternoon. She was trying to reach for something on a book shelf when she got dizzy, lost her balance, and fell on her left side. It was a witnessed fall. There was no loss of consciousness. No blow to the head. She was unable to get up. Her son finally was able to help her get up, and she got into bed; but this morning, the pain is so severe, and she cannot get out of bed to weight bear, so she was brought to the emergency room. Workup in the emergency room included a CT of the hips, which was indicative of fracture. Dr. Joel was consulted, and she was found to have an intracapsular fracture of the left femur. She underwent surgery and had 3 stainless steel Synthes short partially threaded screws that were 6.5 mm. This was done for a left mini opening hip pinning. Unfortunately, her postoperative recovery was delayed because of postoperative delirium. On postoperative day 2, she fell in her room, and there were no injuries. The usual postop medications of morphine, Dilaudid, and oxycodone were discontinued because of her confusion and inability to follow cues with nurses or physical therapy. Even off of these medications, she was confused and had more significant cognitive deficit than we had realized on admission. After investigation, we found out that she had actually had a right lobectomy. We found that on head CT. 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 Her delirium slowly cleared, and she was finally able to cooperate with physical therapy. While she was being x-rayed after her fall, a 09/25/2018 chest x-ray found to have lobar pneumonia and, as such, she was treated empirically with IV antibiotics for healthcare-associated pneumonia in the form of Levaquin. She has a few more days of Levaquin to complete for her pneumonia in the outpatient setting. She had hypertension. At home, she is suppose to be on amlodipine, but she stopped it many, many months ago, and has been on no medications except Excedrin. Blood pressure here was 170s to 180 systolic. She was started on Cardizem CD 120 mg a day, but blood pressure was still uncontrolled and added clonidine 0.1 mg p.o. b.i.d. Depending on how she does in the outpatient setting, she may be a candidate for clonidine patch once a week in addition to her Cardizem CD. She did have hypokalemia that was mild at 3.4 and was supplemented with oral potassium. Of note, she had a new elevated glucose. She does not have a history of diabetes mellitus. A1c was 5.7%, but fasting glucoses were consistently above 100 and got as high as 150. At the longterm facility, glucoses should be checked periodically to make sure she does not need to go on to having insulin. Before her admission, she had ongoing tobacco abuse. She was started on nicotine patch for withdrawals while here. She is discharged in stable condition. Mentally she is felt to be almost back to baseline and is able to be prompted and follow commands. Temperature is 36.6. Pulse is 71, blood pressure 147/95. Orthostatics were done on the day of discharge, and supine blood pressure is 164/77, sitting is 157/92, and standing is 161/103. Respirations were 16 and unlabored, and she is 97% on room air. She is 5 feet 8 inches tall and 83 kg, and is a tall, slender, alert, vague female. I met her that morning for the first time, and her first complaint was that of nausea. When I saw her again in the afternoon, her complaint was more of hip pain, and she had forgotten that she had met me and no longer had nausea. PHYSICAL EXAMINATION LUNGS: Clear to auscultation and percussion. HEART: She had a regular rate and rhythm. ABDOMEN: Soft, hypoactive bowel sounds. No masses, nontender. She has difficulty with getting from a supine to a sitting position on the edge of the bed and then standby assist. She requires a lot of prompting to be able to use her front-wheeled walker correctly and she is able to ambulate 20 feet, as long as physical therapy leads her left leg. She is impulsive and wants to go faster than is safe. She is progressing with the goals of becoming independent. No complaint in her left hip with this weightbearing status and exercise. She did complain of wrist pain. It is recommended she have ongoing physical therapy for functional mobility, (trailing/training?) (9:45), and gait progression for safe mobility at home. Greater than 30 minutes was spent coordinating discharge. One possible thing that can be noted for her treatment in the outpatient setting is Reclast. She should be on calcium and vitamin D, and we were going to give her Reclast right before she left. This would cover her for the next year. However, Reclast may interfere with bone remodeling after hip fracture and needs to be given anywhere from 2 weeks to 6 weeks after surgery. I would recommend that, while she is in the longterm facility, that issue be addressed with Reclast or with her PCP in the outpatient setting. cc: MD Sofya Cee ARNP TD: 10/06/2018 17:22 MAGDY
== END 2018-09-29 15:45 | DRG 480 ==
LOC: EDUNIT# → ED 16:56 → MS2 19:01
PROVIDERS: ADMIT Family Medicine; ATTEND Specialist
PROC: 0QS704Z Reposition Left Upper Femur with Internal Fixation Device, Open Approach (ICD-10-PCS; principal; 2018-09-23 15:30)
DX: S72.012A Unspecified intracapsular fracture of left femur, initial encounter for closed fracture (principal); Q04.3 Other reduction deformities of brain; J18.9 Pneumonia, unspecified organism; W00.9XXA Unspecified fall due to ice and snow, initial encounter; F05 Delirium due to known physiological condition; W01.0XXA Fall on same level from slipping, tripping and stumbling without subsequent striking against object, initial encounter; Y92.009 Unspecified place in unspecified non-institutional (private) residence as the place of occurrence of the external cause; E87.6 Hypokalemia; E11.9 Type 2 diabetes mellitus without complications; R41.89 Other symptoms and signs involving cognitive functions and awareness; Y95 Nosocomial condition; I10 Essential (primary) hypertension; F17.210 Nicotine dependence, cigarettes, uncomplicated; I16.0 Hypertensive urgency; T46.1X6A Underdosing of calcium-channel blockers, initial encounter; I25.10 Atherosclerotic heart disease of native coronary artery without angina pectoris; R42 Dizziness and giddiness; R07.81 Pleurodynia; W19.XXXA Unspecified fall, initial encounter; Y92.230 Patient room in hospital as the place of occurrence of the external cause; M19.90 Unspecified osteoarthritis, unspecified site; Z91.81 History of falling; Z78.1 Physical restraint status; Z91.138 Patient's unintentional underdosing of medication regimen for other reason; Z95.1 Presence of aortocoronary bypass graft; Z95.5 Presence of coronary angioplasty implant and graft; Z86.79 Personal history of other diseases of the circulatory system
CPT/HCPCS: 36415; 51702; 70450; 71045; 71110; 72125; 72128; 72131; 72192; 73502; 80048; 80053; 81001; 83036; 83690; 83735; 84484; 85025; 85027; 85610; 85730; 87040; 87086; 87181; 93005; 93306; 96374; 96375; 97161; 97530; 99283; 99284; A9270; C1713; J0131; J0690; J1170; J3010; J7120; 81003

== ENCOUNTER 2018-10-05 04:13 | Outpatient (CLI) | payer MEDICARE | END 2018-10-05 04:14 | disposition critical access hospital (66) | LOC: EMS 04:13 | PROVIDERS: ATTEND Surgery | DX: R51 Headache (principal); R09.89 Other specified symptoms and signs involving the circulatory and respiratory systems ==

== ENCOUNTER 2018-10-05 04:18 | Emergency (ER) | payer MEDICARE ==
--- NOTE | 2018-10-05 04:23 | ED Physician Documentation ---
PD HPI HEADACHE - Stated complaint Stated Complaint: HEADACHE - History obtained from History obtained from: Patient, Caregiver ([facility]) - History of Present Illness Timing - onset: Yesterday Timing - onset during: Rest Timing - duration: Days (1) Timing - details: Gradual onset, Still present, Waxing and waning Worst headache ever?: No: Worst headache ever? Location: Front, Right Quality: Throbbing, Aching Associated symptoms: No: Fever, Stiff neck, Nausea, Weakness, Numbness Improved by: No: Rest Contributing factors: Hypertension (she has history of some HTN, but has been doing pretty well on usual meds. Nursing noted from [facility] show most common BPs to be 120s systolic over the past week. It was elevated to 170/110 today with the headache symptom. No focal weakness.). No: Anticoagulated, Trauma Recently seen: Emergency Dept, Admitted, Surgery (left hip femoral neck fracture) Review of Systems Constitutional: denies: Fever, Chills Eyes: denies: Loss of vision, Photophobia Nose: denies: Rhinorrhea / runny nose, Congestion Throat: denies: Sore throat Respiratory: denies: Cough GI: denies: Abdominal Pain, Nausea, Vomiting, Diarrhea Skin: denies: Rash, Lesions Neurologic: denies: Focal weakness, Numbness PD PAST MEDICAL HISTORY - Past Medical History Cardiovascular: Hypertension, Valve disorder Respiratory: None Neuro: None Endocrine/Autoimmune: None GI: None SUBSEA ENGINEER: None : None HEENT: None Psych: None Musculoskeletal: Osteoarthritis Derm: None - Past Surgical History Past Surgical History: No General: Cholecystectomy Cardiovascular: Other Neuro: Other - Present Medications Home Medications: Ambulatory Orders Medication Instructions Recorded Confirmed Ibuprofen [Motrin] 800 mg PO 0800,1700 tablet 09/29/18 Levofloxacin [Levaquin] 500 mg PO DAILY #7 tablet 09/29/18 10/05/18 cloNIDine [Catapres] 0.1 mg PO BID tablet 09/29/18 10/05/18 [id number] CD [Cardizem Cd] 120 mg PO DAILY capsule 09/29/18 Acetaminophen [Tylenol] 650 mg PO Q6H PRN 10/05/18 10/05/18 Aspirin EC [Ecotrin] 325 mg PO DAILY 10/05/18 HYDROcod/ACETAM 5/325 [[place]ord 5/325] 1 - 2 ea PO Q6H PRN 10/05/18 10/05/18 Levalbuterol HCl [Xopenex] 0.63 mg IH 10/05/18 Nicotine 7 mg Patch [Nicoderm] 1 each TOP Q24H 10/05/18 10/05/18 oxyCODONE [Roxicodone] 5 mg PO Q4-6H PRN 10/05/18 10/05/18 - Allergies Allergies/Adverse Reactions: Allergies Allergy/AdvReac Type Severity Reaction Status Date / Time cephalexin [From Keflex] Allergy Hives Verified 10/05/18 04:23 - Social History Does the pt smoke?: No Smoking Status: Current every day smoker Does the pt drink ETOH?: No Does the pt have substance abuse?: No - Immunizations Immunizations are current?: No - POLST Patient has POLST: No POLST Status: Full Code PD ED PE NORMAL - Vitals Vital signs reviewed: Yes - General General: Alert and oriented X 3, No acute distress, Well developed/nourished - HEENT HEENT: Atraumatic, PERRL, Pharynx benign - Neck Neck: Supple, no meningeal sign, No adenopathy - Cardiac Cardiac: RRR, No murmur - Respiratory Respiratory: Clear bilaterally - Abdomen Abdomen: Soft, Non tender - Back Back: No CVA TTP - Derm Derm: Normal color, Warm and dry - Extremities Extremities: No tenderness to palpate, No edema, No calf tenderness / cord - Neuro Neuro: Alert and oriented X 3, No motor deficit, Normal speech Eye Opening: Spontaneous Motor: Obeys Commands Verbal: Oriented GCS Score: 15 Results - Vitals Vitals: Vital Signs - 24 hr 10/05/18 10/05/18 04:28 05:33 Temperature 36.7 C Heart Rate 66 63 Respiratory 18 16 Rate Blood Pressure 178/108 H 126/66 O2 Saturation 98 97 Oxygen O2 Source Room air - Rads (name of study) head CT Radiology: Prelim report reviewed, EMP read contemporaneously (prior surgical changes right frontal; no acute bleeding), See rad report PD MEDICAL DECISION MAKING - ED course Complexity details: considered differential (Her blood pressure trend over the last week is been mostly normal with occasional slightly elevated blood pres sures to 1 40-1 50 systolic. I therefore would not specifically treat the current blood pressure elevation. However she is having a headache since yesterday so treating that we will probably have the best effect. We will get a CT scan to ensure no signs of bleeding or swelling to account for the headache. She has no focal deficits.), d/w patient Departure - Departure Disposition: 01 Home, Self Care Clinical Impression: Elevated blood pressure reading Headache Qualifiers: Headache type: unspecified Headache chronicity pattern: acute headache Intractability: not intractable Qualified Code(s): R51 - Headache Condition: Stable Record reviewed to determine appropriate education?: Yes Health Concerns: right headache and elevated BP Plan of Treatment: Med for headache, and got CT head. Continue current usual medications when discharged. Care Goals: resolution of symptoms Assessment: appears well without significant findings one exam. Instructions: ED Cephalgia Unspecified Comments: Continue usual medications. Add Tylenol if needed for headaches. Your head CT does not show any acute abnormalities. Your blood pressure has been mostly quite normal over the last week or so at [facility]. I would not change her medicines at this time, with the BP being up just at this time.
[2018-10-05] MEDS ORDERED: ONDANSETRON ODT 4 MG TABLET TL STA (04:36)
[2018-10-05] MEDS ORDERED: MORPHINE 10 MG/ML VIAL IM STA (04:36)
[2018-10-05 05:34] VITALS: BP 126/66
--- NOTE | 2018-10-05 05:45 | CT Report ---
Reason: headache since yesterday Procedure Date: 10/05/2018 Accession Number: [id number] / [id number] Procedure: CT - HEAD WO CPT Code: FULL RESULT: EXAM: CT HEAD EXAM DATE: 10/05/2018 05:04 AM. CLINICAL HISTORY: Headache since yesterday. COMPARISON: HEAD W/O 09/25/2018 9:08 AM MRI BRAIN W/O CONTRAST 03/13/2011 5:43 PM. TECHNIQUE: Multiaxial CT images were obtained from the foramen magnum to the vertex. Reformats: Sagittal and coronal. IV contrast: None. In accordance with CT protocol optimization, one or more of the following dose reduction techniques were utilized for this exam: automated exposure control, adjustment of mA and/or KV based on patient size, or use of iterative reconstructive technique. FINDINGS: Parenchyma: Extensive right frontotemporal encephalomalacia is again noted. No parenchymal hemorrhage is seen. The mensah-white matter differentiation is distinct elsewhere in the brain. Mild diffuse chronic microangiopathic white matter changes are evident. Extraaxial Spaces: Normal for age. No subdural or epidural collections identified. Ventricles: The ventricles and cortical sulci are moderately enlarged, consistent with age-related tissue loss. Sinuses and orbits: Postsurgical changes from cataract extractions are noted in the globes. The paranasal and mastoid sinuses are not opacified. Bones: Old right craniotomy changes are again noted. An aneurysm clip in the right middle cranial fossa is stable in position. Other: Mild intracranial atherosclerosis is present. IMPRESSION: 1. No acute intracranial process. 2. Stable postoperative changes from aneurysm clipping. 3. Stable right frontotemporal encephalomalacia. RADIA
== END 2018-10-05 06:22 | disposition home or self-care (01) ==
LOC: ED 04:18
DX: R51 Headache (principal); I10 Essential (primary) hypertension; Z79.82 Long term (current) use of aspirin; F17.200 Nicotine dependence, unspecified, uncomplicated
CPT/HCPCS: 70450; 96372; 99283; Q0162

== ENCOUNTER 2018-10-05 06:24 | Outpatient (CLI) | payer MEDICARE | END 2018-10-05 06:25 | LOC: EMS 06:24 | PROVIDERS: ATTEND Surgery | DX: R51 Headache (principal); R09.89 Other specified symptoms and signs involving the circulatory and respiratory systems | CPT/HCPCS: A0425; A0429 ==

== ENCOUNTER 2018-10-16 17:15 | Outpatient (CLI) | payer MEDICARE ==
[2018-10-16 20:21] LABS: CALCIUM 8.6 mg/dL (8.5-10.3); CREATININE 0.9 mg/dL (0.4-1.0); PHOSPHORUS 3.3 mg/dL (2.5-4.6)
== END 2018-10-16 23:59 | disposition home or self-care (01) ==
LOC: LAB.R 17:15
DX: R63.0 Anorexia (principal)
CPT/HCPCS: 80048; 83735; 84100

== ENCOUNTER 2018-11-27 10:22 | Outpatient (CLI) | payer MEDICARE ==
[~2018-11-27 10:22] MED LIST: BUFFERED LIDOCAINE 10 ML SYRINGE ONE; IOTHALAMATE MEGLUMINE 50 ML VIAL ONE
[2018-11-27] MEDS ORDERED: BUFFERED LIDOCAINE 10 ML SYRINGE ONE (10:49)
[2018-11-27] MEDS ORDERED: IOTHALAMATE MEGLUMINE 50 ML VIAL ONE (10:50)
[2018-11-27] MEDS ORDERED: IOTHALAMATE MEGLUMINE 50 ML VIAL IVP ONE ×2 (12:07)
[2018-11-27] MEDS ORDERED: BUFFERED LIDOCAINE 10 ML SYRINGE IU ONE ×2 (12:07)
[2018-11-27] MEDS ORDERED: methylPREDNISolone ACETATE 80 MG/ML VIAL IM ONE (12:07)
[2018-11-27] MEDS ORDERED: BUPIVACAINE 0.5% PF 10 ML VIAL IM ONE ×2 (12:07)
--- NOTE | 2018-11-27 14:14 | XRAY Report ---
Reason: OA OF RIGHT HIP Procedure Date: 11/27/2018 Accession Number: [id number] / [id number] Procedure: FL - Inj/Aspiration Major Joint CPT Code: FULL RESULT: EXAM: RIGHT HIP FLUOROSCOPIC INJECTION FOR PAIN EXAM DATE: 11/27/2018 12:02 PM. REFERRING PROVIDER: Dr. Joel. CLINICAL HISTORY: Osteoarthritis of right hip. COMPARISON: HIP W/PELVIS 2-3V RT 09/25/2018 10:46 AM. TECHNIQUE: The risks, benefits and alternatives of this examination were discussed in detail with the patient. Risks of bleeding, infection, and increasing discomfort in the right hip joint were included in the discussion. The patient appeared to understand, and signed, dated, and timed an informed consent document, which was also signed by me and a witness. The skin was prepped with chlorhexidine gluconate and draped in the usual sterile manner, and 5 mL of 1% buffered lidocaine was used for local analgesia. Under fluoroscopic control, a 22-gauge needle was placed into the right hip joint capsule. After achieving low resistance to the injection of lidocaine, 2 mL of Optiray 320 radiographic contrast was injected and a fluoroscopic spot image was captured to document intra-articular location. Then a combination of 10 mL of 0.3% bupivacaine and 1 mL (80 mg) of methylprednisolone was injected without difficulty. The needle was removed, and the patient was released from our clinic. Fluoroscopy Time: 52 seconds. Number of Images: 1. IMPRESSION: Successful injection of right hip joint for pain relief as noted above. RADIA
== END 2018-11-27 10:23 | disposition home or self-care (01) ==
LOC: DI 10:22
PROVIDERS: ATTEND Orthopaedic Surgery Sports Medicine
DX: M16.11 Unilateral primary osteoarthritis, right hip (principal)
CPT/HCPCS: 20610; Q9961

== ENCOUNTER 2019-03-03 14:44 | Emergency (ER) | payer MEDICARE, OTHER ==
[2019-03-03] MEDS ORDERED: COD LIVER OIL/ZINC OXIDE 113 GM TUBE TOP STA (15:53)
[2019-03-03] MEDS ORDERED: FLUCONAZOLE 100 MG TABLET PO STA (15:53)
--- NOTE | 2019-03-03 15:56 | ED Physician Documentation ---
History of Present Illness - Stated complaint Stated Complaint: SORES ON BUTTOCKS - Chief complaint Chief Complaint: General - History obtained from History obtained from: Patient, Family (brother) - History of Present Illness Timing: Other (This is a 78-year-old woman who is mostly bedbound and has may be some cognitive issues related to a remote aneurysm, and a coronary bypass with some complications. She lives at home with her who is currently out of town for the last 8 days. He is her usual caregiver. It sounds like through that time she has developed some painful bedsores. There is no report of fever.) Review of Systems Constitutional: denies: Fever, Chills Cardiac: denies: Chest pain / pressure, Palpitations Respiratory: denies: Dyspnea, Cough GI: denies: Abdominal Pain PD PAST MEDICAL HISTORY - Past Medical History Cardiovascular: Hypertension, Valve disorder Respiratory: None Neuro: None Endocrine/Autoimmune: None GI: None MAGAZINE FEEDER: None : None HEENT: None Psych: None Musculoskeletal: Osteoarthritis Derm: None - Past Surgical History Past Surgical History: No General: Cholecystectomy Cardiovascular: Other Neuro: Other - Present Medications Home Medications: Ambulatory Orders Medication Instructions Recorded Confirmed Ibuprofen [Motrin] 800 mg PO 0800,1700 tablet 09/29/18 Levofloxacin [Levaquin] 500 mg PO DAILY #7 tablet 09/29/18 10/05/18 cloNIDine [Catapres] 0.1 mg PO BID tablet 09/29/18 10/05/18 diltiaZEM CD [Cardizem Cd] 120 mg PO DAILY capsule 09/29/18 Acetaminophen [Tylenol] 650 mg PO Q6H PRN 10/05/18 10/05/18 Aspirin EC [Ecotrin] 325 mg PO DAILY 10/05/18 HYDROcod/ACETAM 5/325 [[place] 5/325] 1 - 2 ea PO Q6H PRN 10/05/18 10/05/18 Levalbuterol HCl [Xopenex] 0.63 mg IH 10/05/18 Nicotine 7 mg Patch [Nicoderm] 1 each TOP Q24H 10/05/18 10/05/18 oxyCODONE [Roxicodone] 5 mg PO Q4-6H PRN 10/05/18 10/05/18 Azithromycin 1 tab PO DAILY #4 tablet 03/03/19 - Allergies Allergies/Adverse Reactions: Allergies Allergy/AdvReac Type Severity Reaction Status Date / Time cephalexin [From Keflex] Allergy Hives Verified 03/03/19 14:49 - Social History Does the pt smoke?: No Smoking Status: Current every day smoker Does the pt drink ETOH?: No Does the pt have substance abuse?: No - Immunizations Immunizations are current?: No - POLST Patient has POLST: No POLST Status: Full Code PD ED PE NORMAL - Vitals Vital signs reviewed: Yes - General General: Other (She is alert, she can ambulate slowly. She is cooperative. Her brother is giving most of the history because of some cognitive issues I guess related to her old aneurysm.) - HEENT HEENT: PERRL, EOMI - Neck Neck: Supple, no meningeal sign, No bony TTP - Cardiac Cardiac: RRR, No murmur - Respiratory Respiratory: No respiratory distress, Clear bilaterally - Female Female : [employer] Team Members present ([employer]), Other (She has a stage I pressure ulcer encompassing the gluteal creases and some evidence of a yeast infection of the vulva.) - Neuro Neuro: No motor deficit, No sensory deficit Results - Vitals Vitals: Vital Signs - 24 hr 03/03/19 03/03/19 14:49 16:55 Temperature 36.5 C 98 C H Heart Rate 94 79 Respiratory 16 18 Rate Blood Pressure 138/85 H 156/94 H O2 Saturation 97 97 Oxygen O2 Source Room air PD MEDICAL DECISION MAKING - ED course ED course: This is a 78-year-old woman with some cognitive issues who is out of her usual routine as her who is her usual caregiver is out of town. She has stage I pressure ulcers and evidence of yeast infection. We will start her on fluconazole and Desitin. She probably needs home health care until her gets back and we will asked social work to see her. community mental health social worker evaluated her, arranged for help with in-home care. I will start on Zithromax as well for the mild buttock cellulitis noting allergy to Keflex. Departure - Departure Disposition: 01 Home, Self Care Clinical Impression: Marlin infection Stage I pressure ulcer of buttock Qualifiers: Laterality: unspecified laterality Qualified Code(s): L89.301 - Pressure ulcer of unspecified buttock, stage 1 Condition: Good Record reviewed to determine appropriate education?: Yes Instructions: Pressure Ulcer Prescriptions: Azithromycin 1 tab PO DAILY #4 tablet Comments: Call your doctor to arrange a follow-up appointment, make the next available appointment. In the interim, return anytime if worse or if new symptoms develop.
[2019-03-03 16:55] VITALS: BP 156/94
[2019-03-03] MEDS ORDERED: AZITHROMYCIN 250 MG TABLET PO STA (17:16)
== END 2019-03-03 17:50 | disposition home or self-care (01) ==
LOC: ED 14:44
DX: L89.301 Pressure ulcer of unspecified buttock, stage 1 (principal); L03.317 Cellulitis of buttock; B37.3 Candidiasis of vulva and vagina; Z88.1 Allergy status to other antibiotic agents; I10 Essential (primary) hypertension; Z95.1 Presence of aortocoronary bypass graft
CPT/HCPCS: 99283; 99284; A9270

== ENCOUNTER 2019-03-06 20:54 | Outpatient (CLI) | payer MEDICARE | END 2019-03-06 20:55 | disposition short-term general hospital (02) | LOC: EMS 20:54 | PROVIDERS: ATTEND Surgery | DX: R07.9 Chest pain, unspecified (principal) | CPT/HCPCS: A0425; A0427 ==

== ENCOUNTER 2019-03-11 19:46 | Outpatient (CLI) | payer MEDICARE | END 2019-03-11 23:59 | disposition critical access hospital (66) | LOC: EMS 19:46 | PROVIDERS: ATTEND Surgery | DX: R07.2 Precordial pain (principal); M79.602 Pain in left arm | CPT/HCPCS: A0425; A0427 ==

== ENCOUNTER 2019-03-11 20:07 | Emergency (ER) | payer MEDICARE ==
[2019-03-11] MEDS ORDERED: SODIUM CHLORIDE 0.9% 1,000 ML IV ONE (20:26)
[2019-03-11] MEDS ORDERED: LIDOCAINE VISCOUS 2% 15 ML UDC MM STA (20:29)
[2019-03-11] MEDS ORDERED: MAG HYDROX/AL HYDROX/SIMETH 30 ML UDC PO STA (20:29)
--- NOTE | 2019-03-11 20:34 | ED Physician Documentation ---
PD HPI CHEST PAIN - Stated complaint Stated Complaint: CP - Chief complaint Chief Complaint: Cardiac - History obtained from History obtained from: Patient - History of Present Illness Timing - onset: Today Timing - onset during: Rest Timing - duration: Hours Timing - details: Abrupt onset, Still present Pain level now: 5 Quality: Sharp, Pain Location: Substernal, Left chest Radiation: Left upper extremity Improved by: Nitro, Other medication (morphine) Worsened by: Palpation Associated symptoms: No: Shortness of air, Diaphoresis, Nausea, Vomiting, Feeling faint / dizzy, General Weakness, Palpitations, Cough Similar symptoms before: Diagnosis ([place]) Recently seen: Emergency Dept, Admitted - Additional information Additional information: 78-year-old female who is mostly bedbound has developed acute chest pain and she was admitted to the hospital at [facility] on 06 March. She had an NSTEMI and was discharged yesterday. She had elected medical management and this evening at rest she began to develop pain in her left chest radiating into her left arm similar to what she is had previously with her NSTEMI. The patient does have some mild cognitive deficit related to an aneurysm repair. In addition she has had prior CABG in 2008 and at that time they were unable to bypass the posterior artery. She had some complication associated with this and required 6 stents to the posterior artery and during this procedure required the paddles a number of times. Review of Systems Constitutional: denies: Fever Eyes: denies: Decreased vision Ears: denies: Ear pain Nose: denies: Congestion Throat: denies: Sore throat Cardiac: reports: Chest pain / pressure. denies: Palpitations, Pedal edema, Calf pain Respiratory: denies: Dyspnea, Cough GI: reports: Abdominal Pain. denies: Nausea, Vomiting, Constipation, Diarrhea : reports: Incontinent. denies: Dysuria, Frequency PD PAST MEDICAL HISTORY - Past Medical History Cardiovascular: Hypertension, Valve disorder Respiratory: None Neuro: None Endocrine/Autoimmune: None GI: None [employer]: None : None HEENT: None Psych: None Musculoskeletal: Osteoarthritis Derm: None - Past Surgical History Past Surgical History: No General: Cholecystectomy Cardiovascular: Other Neuro: Other - Present Medications Home Medications: Ambulatory Orders Medication Instructions Recorded Confirmed Ibuprofen [Motrin] 800 mg PO 0800,1700 tablet 09/29/18 Levofloxacin [Levaquin] 500 mg PO DAILY #7 tablet 09/29/18 10/05/18 cloNIDine [Catapres] 0.1 mg PO BID tablet 09/29/18 10/05/18 diltiaZEM CD [Cardizem Cd] 120 mg PO DAILY capsule 09/29/18 Acetaminophen [Tylenol] 650 mg PO Q6H PRN 10/05/18 10/05/18 Aspirin EC [Ecotrin] 325 mg PO DAILY 10/05/18 HYDROcod/ACETAM 5/325 [[place] 5/325] 1 - 2 ea PO Q6H PRN 10/05/18 10/05/18 Levalbuterol HCl [Xopenex] 0.63 mg IH 10/05/18 Nicotine 7 mg Patch [Nicoderm] 1 each TOP Q24H 10/05/18 10/05/18 oxyCODONE [Roxicodone] 5 mg PO Q4-6H PRN 10/05/18 10/05/18 Azithromycin 1 tab PO DAILY #4 tablet 03/03/19 - Allergies Allergies/Adverse Reactions: Allergies Allergy/AdvReac Type Severity Reaction Status Date / Time cephalexin [From Keflex] Allergy Hives Verified 03/11/19 20:09 - Social History Does the pt smoke?: No Smoking Status: Current every day smoker Does the pt drink ETOH?: No Does the pt have substance abuse?: No - Immunizations Immunizations are current?: No - POLST Patient has POLST: No POLST Status: Full Code PD ED PE NORMAL - Vitals Vital signs reviewed: Yes (normal ) - General General: No acute distress, Well developed/nourished, Other (Blank stare but "seems" to answer appropriately. Smells heavily of infected urine. ) - HEENT HEENT: Atraumatic, PERRL, EOMI - Neck Neck: Supple, no meningeal sign, No bony TTP - Cardiac Cardiac: RRR, No murmur - Respiratory Respiratory: No respiratory distress, Clear bilaterally - Abdomen Abdomen: Soft, Other (epigastric tenderness re-produces the symptoms the patient is having ) - Back Back: No CVA TTP, No spinal TTP - Derm Derm: Normal color, Warm and dry, No rash - Extremities Extremities: No deformity, No edema - Neuro Neuro: manager discovery 2-12 intact, No motor deficit, No sensory deficit, Normal speech Eye Opening: Spontaneous Motor: Obeys Commands Verbal: Confused GCS Score: 14 - Psych Psych: Normal mood, Other (affect is blunted) Results - Vitals Vitals: Vital Signs - 24 hr 03/11/19 03/11/19 03/11/19 20:09 20:30 21:21 Temperature 37.0 C Heart Rate 83 80 77 Respiratory 16 15 16 Rate Blood Pressure 101/66 98/68 102/70 O2 Saturation 95 97 96 03/11/19 03/12/19 03/12/19 22:53 00:00 00:27 Temperature Heart Rate 66 63 61 Respiratory 17 15 20 Rate Blood Pressure 108/73 119/80 135/90 H O2 Saturation 98 97 97 03/12/19 03/12/19 03/12/19 00:43 00:56 01:04 Temperature Heart Rate 60 62 60 Respiratory 15 14 15 Rate Blood Pressure 136/67 H 131/81 H 123/76 O2 Saturation 95 96 97 03/12/19 03/12/19 01:13 01:26 Temperature Heart Rate 66 65 Respiratory 15 18 Rate Blood Pressure 138/79 H 131/84 H O2 Saturation 98 97 Oxygen O2 Source Room air - EKG (time done) 2014 Rate: Rate (enter#) (82) Rhythm: NSR Intervals: Prolonged QT Ischemia: Q waves, T wave inversion (inferior and lateral ) Compare to prior EKG: Changed from prior EKG (SPT 09-22-2018 T-wave inversions are "deeper" otherwise similar. ) Computer interpretation: Agree with computer - Labs Labs: Laboratory Tests 03/11/19 03/11/19 03/11/19 20:41 20:44 20:44 WBC 8.4 RBC 4.47 Hgb 14.3 Hct 43.2 MCV 96.6 MCH 32.0 H MCHC 33.1 RDW 17.2 H Plt Count 274 MPV 9.7 Neut # (Auto) 4.6 Lymph # (Auto) 2.9 [place] # (Auto) 0.7 Eos # (Auto) 0.1 Baso # (Auto) 0.1 Absolute Nucleated RBC 0.00 Nucleated RBC % 0.0 Sodium 140 Potassium 4.0 Chloride 112 H Carbon Dioxide 20 L Anion Gap 8.0 BUN 13 Creatinine 1.2 H Estimated GFR (MDRD) 43 L Glucose 105 H Calcium 8.0 L Total Bilirubin 0.8 AST 22 ALT 15 Alkaline Phosphatase 59 Troponin I High Sens Total Protein 5.7 L Albumin 2.8 L Globulin 2.9 Albumin/Globulin Ratio 1.0 Lipase 25 Urine Color LT. YELLOW Urine Clarity HAZY Urine pH 7.0 Ur Specific [place] 1.010 Urine Protein NEGATIVE Urine Glucose (UA) NEGATIVE Urine Ketones NEGATIVE Urine Occult Blood NEGATIVE Urine Nitrite POSITIVE H Urine Bilirubin NEGATIVE Urine Urobilinogen 0.2 (NORMAL) Ur Leukocyte Esterase MODERATE H Urine RBC 0-5 Urine WBC >25 H Ur Squamous Epith Cells FEW Squamous Urine Bacteria Many H Ur Microscopic Review INDICATED Urine Culture Comments INDICATED 03/11/19 03/11/19 20:44 23:20 WBC RBC Hgb Hct MCV MCH MCHC RDW Plt Count MPV Neut # (Auto) Lymph # (Auto) [place] # (Auto) Eos # (Auto) Baso # (Auto) Absolute Nucleated RBC Nucleated RBC % Sodium Potassium Chloride Carbon Dioxide Anion Gap BUN Creatinine Estimated GFR (MDRD) Glucose Calcium Total Bilirubin AST ALT Alkaline Phosphatase Troponin I High Sens 2753.5 H* 3410.2 H* Total Protein Albumin Globulin Albumin/Globulin Ratio Lipase Urine Color Urine Clarity Urine pH Ur Specific [place] Urine Protein Urine Glucose (UA) Urine Ketones Urine Occult Blood Urine Nitrite Urine Bilirubin Urine Urobilinogen Ur Leukocyte Esterase Urine RBC Urine WBC Ur Squamous Epith Cells Urine Bacteria Ur Microscopic Review Urine Culture Comments - Rads (name of study) chest 1 view Radiology: Prelim report reviewed (Impression: No acute cardiopulmonary disease seen.), EMP read indepedently, See rad report Procedures - IVC sono (time) 2014 Bedside IVC sono: IVC measures (cm) (0.97), Dehydration (est 1-2 liter deficit) PD MEDICAL DECISION MAKING - ED course Complexity details: reviewed old records, reviewed results, re-evaluated patient, considered differential, d/w patient, d/w family ED course: 78-year-old female with a recent N-STEMI has started medical management and despite this she is having symptoms at rest. Here in the emergency department she arrives with a 5 out of 10 pain she is eventually started on a nitroglycerin drip and heparin. Her pain does reduce with this regimen and we were able to contact the tile mechanic helper at [facility] Dr. Olson who indicated that the patient had refused intervention during her hospitalization and he recommended medical management unless the patient consented to more aggressive therapy. [facility] did not have a bed available and the patient has had her procedure done previously at [facility] in [place] and [facility] did not have a bed available as well. [facility] was consulted in the case and Dr. Cherry Hurtado is excepting the patient in transfer on the nitro drip and heparin drip. The patient has consented to more aggressive therapy and arrangements for transfer are made. She is noted to have UTI and is given a dose of rocephin as well. Departure - Departure Disposition: 02 Transfer Acute Care Hosp Clinical Impression: NSTEMI (non-ST elevated myocardial infarction) UTI (urinary tract infection) Qualifiers: Urinary tract infection type: acute cystitis Hematuria presence: without hematuria Qualified Code(s): N30.00 - Acute cystitis without hematuria
[2019-03-11] MEDS ORDERED: FOLIC ACID INJ 1 MG, THIAMINE INJ 100 MG, MAGNESIUM SULFATE 2 GM, MULTIVITAMIN 10 ML in... IV STA ×5 (20:35)
[2019-03-11 20:48] LABS: BASOPHILS # (AUTO) 0.1 10^3/uL (0.0-0.1); BASOPHILS % (AUTO) 0.8 %; EOSINOPHILS # (AUTO) 0.1 10^3/uL (0.0-0.7); EOSINOPHILS % (AUTO) 0.8 %; HGB - HEMOGLOBIN 14.3 g/dL (12.0-16.0); LYMPHOCYTES # (AUTO) 2.9 10^3/uL (1.5-3.5); LYMPHOCYTES % (AUTO) 34.7 %; MEAN CORPUSCULAR HGB CONC 33.1 g/dL (32.0-36.0); MEAN CORPUSCULAR VOLUME 96.6 fL (81.0-99.0); MEAN PLATELET VOLUME 9.7 fL (7.9-10.8); MONOCYTES # (AUTO) 0.7 10^3/uL (0.0-1.0); MONOCYTES % (AUTO) 8.6 %; NEUTROPHILS # (AUTO) 4.6 10^3/uL (1.5-6.6); NEUTROPHILS % (AUTO) 54.6 %; PLT - PLATELET COUNT 274 10^3/uL (130-450); RED BLOOD COUNT 4.47 10^6/uL (4.20-5.40); RED CELL DISTRIBUTION WIDTH 17.2 % (12.0-15.0); WHITE BLOOD COUNT 8.4 x10^3/uL (4.8-10.8)
[2019-03-11 20:49] LABS: BILIRUBIN,URINE NEGATIVE (NEGATIVE); GLUCOSE, URINE (UA) NEGATIVE (NEGATIVE); KETONES,URINE (UA) NEGATIVE (NEGATIVE); LEUKOCYTE ESTERASE, URINE MODERATE (NEGATIVE); NITRITE,URINE POSITIVE (NEGATIVE); OCCULT BLOOD,URINE NEGATIVE (NEGATIVE); PROTEIN,URINE NEGATIVE (NEGATIVE); UROBILINOGEN,URINE 0.2 (NORMAL) E.U./dL (NORMAL)
[2019-03-11 20:53] LABS: CLARITY,URINE HAZY (CLEAR)
[2019-03-11 21:02] LABS: BACTERIA,URINE Many /HPF (None Seen); RBC,URINE 0-5 /HPF (0-5); SQUAMOUS EPITHELIAL CELL,UR FEW Squamous (<= Few)
[2019-03-11 21:02] LABS: ALBUMIN 2.8 g/dL (3.2-5.5); BILIRUBIN,TOTAL 0.8 mg/dL (0.2-1.0); CREATININE 1.2 mg/dL (0.4-1.0); TOTAL PROTEIN 5.7 g/dL (6.7-8.2)
[2019-03-11] MEDS ORDERED: THIAMINE 100 MG/1 ML 2 ML MDV ONE (21:03)
[2019-03-11] MEDS ORDERED: cefTRIAXone 1 GM in SODIUM CHLORIDE 0.9% MINIBAG 100 ML IV STA (21:07)
--- NOTE | 2019-03-11 21:09 | XRAY Report ---
Reason: chest pain Procedure Date: 03/11/2019 Accession Number: [id number] / [id number] Procedure: XR - Chest 1 View X-Ray CPT Code: 19521 Final Report FULL RESULT: EXAM: CHEST RADIOGRAPHY EXAM DATE: 03/11/2019 08:51 PM. CLINICAL HISTORY: Chest pain. COMPARISON: RIBS 3 VIEW BILAT 09/25/2018 10:51 AM. TECHNIQUE: 1 view. FINDINGS: Lungs/Pleura: No focal opacities evident. No pleural effusion. No pneumothorax. Mediastinum: Within exam limitations, the cardiomediastinal contour is normal. Marked aortic arch calcification. Other: Sternotomy wires. Bilateral breast implants. IMPRESSION: No acute cardiopulmonary disease seen. RADIA
[2019-03-12] MEDS ORDERED: HEPARIN 25000UNITS/500ML (D5W) 25,000 UNIT/500 ML BAG IV STA (00:15)
[2019-03-12] MEDS ORDERED: NITROGLYCERIN 50 MG/250 ML 50 MG/250 ML BOTTLE IV SCH (01:00)
[2019-03-12] MEDS ORDERED: HEPARIN 25000UNITS/500ML (D5W) 25,000 UNIT/500 ML BAG IV SCH (01:00)
[2019-03-12 02:37] VITALS: BP 132/66
== END 2019-03-12 03:04 | disposition short-term general hospital (02) ==
LOC: EDUNIT# → ED 20:07
DX: I21.4 Non-ST elevation (NSTEMI) myocardial infarction (principal); I45.81 Long QT syndrome; Z95.1 Presence of aortocoronary bypass graft; N30.00 Acute cystitis without hematuria; E86.0 Dehydration; I10 Essential (primary) hypertension
CPT/HCPCS: 36415; 71045; 80053; 81001; 83690; 84484; 85025; 87077; 87086; 87181; 93005; 96365; 96366; 96368; 96375; 99284; 99285; A9270; J3411; 81003

== ENCOUNTER 2019-03-12 03:00 | Outpatient (CLI) | payer MEDICARE | END 2019-03-12 03:01 | disposition short-term general hospital (02) | LOC: EMS 03:00 | PROVIDERS: ATTEND Surgery | DX: I22.2 Subsequent non-ST elevation (NSTEMI) myocardial infarction (principal); I21.4 Non-ST elevation (NSTEMI) myocardial infarction; N39.0 Urinary tract infection, site not specified | CPT/HCPCS: A0425; A0426 ==